=== PATIENT | male | born 1975 | race Caucasian/White ===

== ENCOUNTER 2023-03-16 13:55 | Outpatient (OUT) | payer MEDICARE, MEDICAID, SELFPAY ==
[2023-03-16 14:29] LABS: Basophils Percent Auto 0.7 % (0.2-2.0); Eosinophils Absolute Auto 0.2 10^3/uL (0.0-0.7); Eosinophils Percent Auto 4.7 % (0.9-7.0); Hematocrit 43.9 % (42.0-54.0); Hemoglobin 15.1 g/dL (14.0-18.0); Immature Granulocytes Abs Auto 0.02 10^3/uL (0.00-0.03); Immature Granulocytes Pct Auto 0.5 % (0.0-0.5); Lymphocytes Absolute Auto 1.8 10^3/uL (1.2-3.8); Lymphocytes Percent Auto 42.7 % (20.5-60.0); Mean Corpuscular HGB Conc 34.4 g/dL (29.9-35.2); Mean Platelet Volume 8.5 fL (9.5-13.5); Monocytes Absolute Auto 0.5 10^3/uL (0.3-0.8); Monocytes Percent Auto 12.7 % (1.7-12.0); Neutrophils Absolute Auto 1.6 10^3/uL (1.4-6.5); Neutrophils Percent Auto 38.7 % (43.0-75.0); Platelet Count 253 10^3/uL (150-450); Red Blood Count 4.72 10^6/uL (4.70-6.10); Red Cell Distribution Width 11.5 % (11.0-15.0); White Blood Count 4.2 10^3/uL (4.0-11.0)
[2023-03-16 15:04] LABS: Alanine Aminotransferase 37 U/L (16-63); Albumin Globulin Ratio 1.1; Albumin Level 4.1 g/dL (3.4-5.0); Alkaline Phosphatase 42 U/L (46-116); Anion Gap 11.4; Aspartate Amino Transferase 26 U/L (15-37); Bilirubin Direct 0.1 mg/dL (0.0-0.2); Bilirubin Total 0.4 mg/dL (0.2-1.0); Calcium 9.2 mg/dL (8.5-10.1); Carbon Dioxide 28.3 mmol/L (21.0-32.0); Chloride 97 mmol/L (98-107); Estimated GFR (African America >60 (>=60); Estimated GFR (Non-African Ame >60 (>=60); Globulin 3.9 g/dL; Glucose 103 mg/dL (74-106); Potassium 4.7 mmol/L (3.5-5.1); Sodium 132 mmol/L (136-145)
== END 2023-03-16 13:56 ==
PROVIDERS: PCP Family Medicine; Visit Provider Psychiatry & Neurology Neurology
DX: G40.909 Epilepsy, unspecified, not intractable, without status epilepticus (principal)
CPT/HCPCS: 36415; 80048; 80076; 85025

== ENCOUNTER 2023-04-09 14:58 | Outpatient (OUT) | payer MEDICARE, MEDICAID, SELFPAY ==
--- NOTE | 2023-04-09 15:16 | US_ITS ---
[address] [address] Patient Name: KJ NICOLAS MRN: [id number] date: 1975 Sex: M Assigned Patient Location: [facility] Current Patient Location: Accession/Order Number: [id number] Exam Date: 04/09/2023 15:16 Report Date: 04/10/2023 07:14 At the request of: JORDAN WYLIE Procedure: US appendix EXAM: US appendix HISTORY: Abdominal pain R10.9 COMPARISON: None. TECHNIQUE: Grayscale and color ultrasound FINDINGS: The appendix was not visualized Normal skin, subcutaneous fat, muscle and loops of bowel. No ascites. IMPRESSION: Indeterminate exam, the appendix was not visualized Electronically authenticated by: KIM GARY Date: 04/10/2023 07:14
== END 2023-04-09 14:59 | disposition home or self-care (01) ==
LOC: RAD 15:04
PROVIDERS: PCP Family Medicine; Visit Provider Family Medicine
DX: R10.9 Unspecified abdominal pain (principal)
CPT/HCPCS: 76705

== ENCOUNTER 2023-04-15 12:54 | Outpatient (OUT) | payer MEDICARE, MEDICAID, SELFPAY ==
--- NOTE | 2023-04-15 13:03 | CT_ITS ---
[address] [address] Patient Name: KJ NICOLAS MRN: [id number] date: 1975 Sex: M Assigned Patient Location: CT Current Patient Location: CT Accession/Order Number: [id number] Exam Date: 04/15/2023 14:15 Report Date: 04/15/2023 16:17 At the request of: JORDAN WYLIE Procedure: CT abdomen pelvis w con CT ABDOMEN AND PELVIS WITH CONTRAST: INDICATION: Left Lower Quadrant Pain R10.32. COMPARISON: None. TECHNIQUE: Helical CT images of the abdomen and pelvis were obtained after the administration of intravenous contrast. Dose reduction techniques were achieved by using automated exposure control and/or adjustment of mA and/or kV according to patient size and/or use of iterative reconstruction technique. FINDINGS: LOWER CHEST: Mosaic groundglass attenuation of the visualized lungs which is nonspecific and can be seen in small airways or small vessel disease. Mild circumferential wall thickening of the distal esophagus. LIVER: Mild diffuse fatty infiltration of the liver. GALLBLADDER AND BILIARY SYSTEM: The gallbladder is partially contracted. There is no intra or extrahepatic biliary ductal dilatation. SPLEEN: Unremarkable. PANCREAS: Unremarkable. ADRENAL GLANDS: Unremarkable. KIDNEYS AND URETERS: The kidneys enhance symmetrically. There is no hydronephrosis. No focal renal lesions. BLADDER: Unremarkable. GASTROINTESTINAL TRACT: No evidence of bowel obstruction or colitis. Normal appendix. Moderate amount of stool in the colon. VASCULATURE: Unremarkable. RETROPERITONEUM AND LYMPH NODES: No lymphadenopathy or mass. PERITONEUM/MESENTERY: No abdominal ascites. No free air. PELVIS: No pelvic ascites or lymphadenopathy. BODY WALL: Tiny fat-containing umbilical hernia. BONES: No acute abnormality. CT/CT abdomen pelvis w con IMPRESSION: 1. No acute process in the abdomen or pelvis. 2. Mild circumferential wall thickening of the distal esophagus. 3. Fatty liver. 4. Constipation. Electronically authenticated by: AMY PUENTE Date: 04/15/2023 16:17
== END 2023-04-15 12:55 | disposition home or self-care (01) ==
LOC: CT 12:54
PROVIDERS: PCP Family Medicine; Visit Provider Family Medicine
DX: R10.32 Left lower quadrant pain (principal); K59.00 Constipation, unspecified
CPT/HCPCS: 74177; Q9966; Q9967

== ENCOUNTER 2023-05-26 13:11 | Outpatient (OUT) | payer MEDICARE, MEDICAID, SELFPAY ==
--- NOTE | 2023-05-26 | XR_ITS ---
The [address] [address] Patient Name: KJ NICOLAS MRN: [id number] date: 1975 Sex: M Assigned Patient Location: RAD Current Patient Location: RAD Accession/Order Number: [id number] Exam Date: 05/26/2023 13:40 Report Date: 05/26/2023 15:41 At the request of: ANABELA FRANCE Procedure: XR foot RT min 3V PROCEDURE: XR foot RT min 3V HISTORY: IMAGING IN PODIATRY lateral right foot pain, no known injury COMPARISON: XR foot right 12/17/2022 2 FINDINGS: BONES:No fracture, acute abnormality, or significant arthropathy. SOFT TISSUES:No visible soft tissue swelling. EFFUSION:None visible. OTHER: Negative. XR/XR foot RT min 3V IMPRESSION: 1. No acute bone abnormality or appreciable degenerative changes to account for patient's symptoms. Electronically authenticated by: DANGELO WILLIAM Date: 05/26/2023 15:41
== END 2023-05-26 13:12 | disposition home or self-care (01) ==
LOC: RAD 13:11
PROVIDERS: PCP Family Medicine; Visit Provider Physician Assistant
DX: M79.671 Pain in right foot (principal)
CPT/HCPCS: 73630

== ENCOUNTER 2023-07-08 15:20 | Outpatient (OUT) | payer MEDICARE, MEDICAID, SELFPAY ==
--- NOTE | 2023-07-08 | XR_ITS ---
The [address] [address] Patient Name: KJ NICOLAS MRN: [id number] date: 1975 Sex: M Assigned Patient Location: RAD Current Patient Location: RAD Accession/Order Number: [id number] Exam Date: 07/08/2023 13:45 Report Date: 07/08/2023 14:48 At the request of: ANABELA FRANCE Procedure: XR ankle RT min 3V STUDY: XR ankle RT min 3V, [id number] HISTORY: RIGHT ANKLE PAIN COMPARISON: None FINDINGS: No acute fracture, dislocation, or suspicious osseous lesion. No significant degenerative changes. No lucent lesion of the talar dome. Mild Achilles insertional enthesopathy. XR/XR ankle RT min 3V IMPRESSION: No acute osseous abnormality. Electronically authenticated by: RITO JHA Date: 07/08/2023 14:48
== END 2023-07-08 15:21 | disposition home or self-care (01) ==
LOC: RAD 15:20
PROVIDERS: PCP Family Medicine; Visit Provider Podiatrist Foot & Ankle Surgery
DX: M25.572 Pain in left ankle and joints of left foot (principal)
CPT/HCPCS: 73610

== ENCOUNTER 2023-07-14 12:18 | Outpatient (OUT) | payer MEDICARE, MEDICAID, SELFPAY ==
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
== END 2023-07-14 12:19 | disposition home or self-care (01) ==
PROVIDERS: PCP Family Medicine; Visit Provider Podiatrist Foot & Ankle Surgery
DX: M79.5 Residual foreign body in soft tissue (principal); M25.371 Other instability, right ankle
CPT/HCPCS: 72170

== ENCOUNTER 2023-07-27 12:54 | Outpatient (RCR) | payer MEDICARE, MEDICAID, SELFPAY | END 2023-08-04 16:26 | disposition home or self-care (01) | LOC: PT 12:54 | PROVIDERS: PCP Family Medicine; Visit Provider Podiatrist Foot & Ankle Surgery | DX: M25.572 Pain in left ankle and joints of left foot (principal); M25.371 Other instability, right ankle; R26.9 Unspecified abnormalities of gait and mobility; R26.89 Other abnormalities of gait and mobility | CPT/HCPCS: 97110; 97161; 97530 ==

== ENCOUNTER 2023-08-26 14:29 | Outpatient (REF) | payer MEDICARE, MEDICAID, SELFPAY ==
[2023-08-26 14:41] LABS: Bilirubin Urine NEGATIVE (NEGATIVE); Blood Urine NEGATIVE (NEGATIVE); Clarity Urine CLEAR (CLEAR); Color Urine YELLOW (YELLOW); Glucose Urine UA NEGATIVE (NEGATIVE); Ketones Urine NEGATIVE (NEGATIVE); Leukocyte Esterase Urine NEGATIVE (NEGATIVE); Nitrite Urine NEGATIVE (NEGATIVE); Protein Urine NEGATIVE (NEG/TRACE); pH Urine 7.5 (5.0-9.0)
[2023-08-26 14:48] LABS: Bacteria Urine TRACE #/HPF (NONE SEEN); Crystals Seen? Seen #/HPF (None Seen); Mucus Urine NONE SEEN (NONE SEEN); RBC Urine 0-2 #/HPF (0-2); Squamous Epithelial Cell Urine NONE SEEN #/LPF (NONE/RARE); WBC Urine NONE SEEN #/HPF (NONE SEEN)
[2023-08-26 14:49] LABS: Amorphous Sediment Urine FEW; Cast Seen? NONE SEEN #/LPF (NONE SEEN)
== END 2023-08-26 14:30 | disposition home or self-care (01) ==
LOC: LAB 14:29
PROVIDERS: PCP Family Medicine; Visit Provider Family Medicine
DX: J30.2 Other seasonal allergic rhinitis (principal)
CPT/HCPCS: 81001; 87086

== ENCOUNTER 2023-08-26 14:55 | Outpatient (OUT) | payer MEDICARE, MEDICAID, SELFPAY ==
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
== END 2023-08-26 14:56 | disposition home or self-care (01) ==
LOC: RAD 14:56
PROVIDERS: PCP Family Medicine; Visit Provider Family Medicine
DX: J30.2 Other seasonal allergic rhinitis (principal); M25.551 Pain in right hip; M16.0 Bilateral primary osteoarthritis of hip
CPT/HCPCS: 73502

== ENCOUNTER 2024-01-29 09:57 | Outpatient (OUT) | payer MEDICARE, MEDICAID, SELFPAY ==
--- NOTE | 2024-01-29 09:59 | XR_ITS ---
The [address] [address] Patient Name: KJ NICOLAS MRN: [id number] date: 1975 Sex: M Assigned Patient Location: [facility] Current Patient Location: Accession/Order Number: [id number] Exam Date: 01/29/2024 10:05 Report Date: 02/01/2024 06:52 At the request of: JORDAN WYLIE Procedure: XR sinus min 3V EXAMINATION: XR sinus min 3V HISTORY: Acute Recurrent Pansinusitis J01.41 COMPARISON: No relevant comparison available. FINDINGS: MAXILLARY: Suspect mucosal thickening. No appreciable fluid level. ETHMOID: No mucosal thickening or fluid level. FRONTAL: Suspect complete opacification of left lateral frontal sinus. SPHENOID: Suspect mucosal thickening. OTHER: Negative. XR/XR sinus min 3V IMPRESSION: 1. Findings suggestive of chronic sinusitis. No appreciable fluid levels to suggest acute sinusitis. Electronically authenticated by: DANGELO WILLIAM Date: 02/01/2024 06:52
== END 2024-01-29 09:58 | disposition home or self-care (01) ==
LOC: RAD 09:57
PROVIDERS: PCP Family Medicine; Visit Provider Family Medicine
DX: J01.41 Acute recurrent pansinusitis (principal)
CPT/HCPCS: 70220

== ENCOUNTER 2024-07-28 12:44 | Outpatient (OUT) | payer MEDICARE, MEDICAID, SELFPAY ==
--- NOTE | 2024-07-28 12:48 | CT_ITS ---
The [address] [address] Patient Name: KJ NICOLAS MRN: [id number] date: 1975 Sex: M Assigned Patient Location: CT Current Patient Location: CT Accession/Order Number: [id number] Exam Date: 07/28/2024 12:54 Report Date: 07/28/2024 18:44 At the request of: JORDAN WYLIE Procedure: CT head/brain wo con EXAM: CT head/brain wo con HISTORY: migraine G43.909 COMPARISON: None. TECHNIQUE: Axial CT scans through the head were obtained without IV contrast administration. Dose reduction techniques were achieved by using: automated exposure control and/or adjustment of mA and /or kV according to patient size and/or use of iterative reconstruction technique. FINDINGS: There is no acute intracranial hemorrhage or abnormal extra-axial fluid collection. No mass effect or midline shift is seen. There is no evidence of large acute territorial infarction. There is no hydrocephalus. To the limit of CT, the posterior fossa appears unremarkable. The calvaria and extra cranial soft tissues are unremarkable. The visualized orbits show no abnormality. The visualized paranasal sinuses show no air-fluid level. There are minimal mastoid effusion bilaterally. There are cerumen within bilateral external auditory canals. CT/CT head/brain wo con IMPRESSION: No acute intracranial process. Bilateral mild mastoid effusion. Electronically authenticated by: DANA SEGAL Date: 07/28/2024 18:44
--- OUTSIDE RECORDS SUMMARY | 2024-07-28 12:54 | XMS_ITS | CCD ---
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 Role Phone INESSA ., DR ORTEGA Consulting Unavailable HOY ., DR ORTEGA Primary Care Unavailable HOY ., DR ORTEGA Admitting Unavailable HOY ., DR ORTEGA Attending Unavailable HOY ., DR ORTEGA Consulting Unavailable HOY ., DR ORTEGA Primary Care Unavailable HOY ., DR ORTEGA Admitting Unavailable HOY ., DR ORTEGA Attending Unavailable NATALIIA, DR DANGELO Thao Consulting Unavailable HOY ., DR ORTEGA Primary Care Unavailable HOY ., DR ORTEGA Admitting Unavailable HOY ., DR ORTEGA Attending Unavailable Jordan Wylie Primary Care Physician [phone] Hoy, Jordan Admitting Unavailable Hoy, Jordan Attending Unavailable Hoy, Jordan Referring Unavailable Hoy, Jordan Admitting Unavailable Hoy, Jordan Referring Unavailable Hoy, Jordan Attending Unavailable Timmis, Irina H Referring Unavailable Timmis, Irina H Attending Unavailable Timmis, Irina H Admitting Unavailable TIMMIS, IRINA H Attending Unavailable HOY, JORDAN M Referring Unavailable TIMMIS, IRINA H Attending Unavailable MARIANA GILMAN Attending Unavailable Problems Active Problems Problem Classification Problem Date Documented Da te Episodic/Chronic Diabetes mellitus without complication (1 source) Type 2 diabetes mellitus without complications; Translations: [TYPE 2 DM WITHOUT COMPLICATIONS] Onset: 02-27-2022 Chronic Disorders of lipid metabolism (1 source) Hyperlipidemia, unspecified; Translations: [HYPERLIPIDEMIA UNSPECIFIED] Onset: 02-27-2022 Chronic Other connective tissue disease (4 sources) Pain in right hand; Translations: [PAIN IN RIGHT HAND] Onset: 12-17-2022 Episodic Past or Other Problems Problem Classification Problem Date Documented Da te Episodic/Chronic Deficiency and other anemia (1 source) Anemia, unspecified; Translations: [ANEMIA UNSPECIFIED] Onset: 02-27-2022 Episodic Other aftercare (1 source) Other alf (current) drug therapy; Translations: [OTH MANAGER SIMULATION CURRENT DRUG THERAPY] Onset: 02-27-2022 Episodic Other non-traumatic joint disorders (1 source) Pain in unspecified joint; Translations: [PAIN IN UNSPECIFIED JOINT] Onset: 02-27-2022 Episodic Other screening for suspected conditions (not mental disorders or infectious disease) (1 source) Encounter for screening for malignant neoplasm of prostate; Translations: [ENC SCREEN MALIG NEOPLASM PROSTATE] Onset: 02-27-2022 Episodic Results Test Name Value Interpretation Reference Range Facility US Head/Neck Soft Tissueon 0 04-02-2024 US Head/Neck Soft Tissue Exam Date/Time: 03/30/2024 15:02 EDT Reason for Exam: R59.1 Report IMPRESSION: NORMAL-SIZED LYMPH NODES, BILATERAL NECK. IF CLINICAL CONCERN WARRANTS, CT SOFT TISSUE NECK MAY BE OBTAINED FOR FURTHER EVALUATION. CLINICAL HISTORY: R59.1 lymphadenopathy. Difficulty swallowing. COMPARISON: NONE. FINDINGS: Directed sonographic interrogation was performed over the regions of clinical concern. In the right neck, multiple lymph nodes are identified, the largest measuring 1.4 x 0.4 cm. In the left neck, multiple lymph nodes are identified, the largest measuring 2.1 x 0.4 cm. Color flow without anomaly bilaterally. No cystic and no solid lesions identified. Ordering Provider: Jordan Wylie FINAL REPORT Dictated: 04/02/2024 10:00 am Shekhar Elmore MD Signed (Electronic Signature): 04/02/2024 10:00 am Signed by: Shekhar Elmore MD Transcribed by: RIGO Technologist: HW Normal [facility] EBV Antibody Profileon 04-01 EBV capsid IgG IA Qn (S) >600.0 High 0.0-17.9 [facility] Comment on above: Result Comment: Nega tive <18.0 Equivocal 18.0 - 21.9 Positive >21.9 Performed By: #### 1 [id number] #### [facility] [address] [place] [address] EBV capsid IgM IA Qn (S) <36.0 Invalid Interpretation Code 0.0-35.9 [facility] Comment on above: Result Comment: Nega tive <36.0 Equivocal 36.0 - 43.9 Positive >43.9 Performed By: #### 1 [id number] #### [facility] [address] [place] [address] EBV nuclear IgG IA Qn (S) 298.0 unit/mL High 0.0-17.9 [facility] Comment on above: Result Comment: Nega tive <18.0 Equivocal 18.0 - 21.9 Positive >21.9 Performed By: #### 1 [id number] #### [facility] [address] [place] [address] Service comment (Unsp spec) [Interp] Comment Invalid Interpretation Code [facility] Comment on above: Result Comment: EBV Interpretation Chart Celis: Antibody Present + Antibody Absent - Interpretation VCA-IgM VCA-IgG EBNA-IgG No previous infection/ - - - Susceptible Primary infection (new + + - or recent) Past Infection +or- + + See comment below* + - - *Results indicate infection with EBV at some time however cannot predict the timing of the infection since antibodies to EBNA usually develop after primary infection or, alternatively, approximately 5-10% of patients with EBV never develop antibodies to EBNA. Performed at: [facility] [id number] PhD Jo Ann Olvera Performed By: #### 1 [id number] #### [facility] [address] [place] [address] CT Maxillofacial w/o Contras ton 03-31-2024 CT Maxillofacial w/o Contrast Exam Date/Time: 03/30/2024 14:30 EDT Reason for Exam: J32.4 Report IMPRESSION: NO RADIOGRAPHIC FINDINGS TO SUGGEST ACUTE OR CHRONIC SINUSITIS CLINICAL HISTORY: J32.4 facial pressure COMPARISON: NONE. FINDINGS: Within the [id number] the ventricles are of normal size configuration. No mass. No midline shift. The cisterns are patent. No acute intra or extra 5. Both globes are intact. No gross preseptal or postseptal findings. The frontal sinuses, anterior posterior ethmoids, sphenoid and maxillary sinuses are well aerated. No significant mucosal thickening no retention cyst and/or polyps. The mastoids are well aerated. The ostiomeatal units are patent. No significant sclerotic changes are hyperostosis seen within the visualized paranasal sinuses. Mild Deviation nasal septum to the right with small nasal spur All CT scans at this facility use dose modulation, iterative reconstruction, and/or weight based dosing when appropriate to reduce radiation dose to as low as reasonably achievable. Ordering Provider: Irina Vega FINAL REPORT Dictated: 03/31/2024 9:44 am Manoj Brown Signed (Electronic Signature): 03/31/2024 9:44 am Signed by: Manoj Brown Transcribed by: RIGO Technologist: ANGIE [facility] CBC w/ Auto Diffon 4 Basophils/100 WBC (Bld) 0.7 % Normal 0.0-2.0 [facility] Comment on above: Performed By: #### 2 [id number] #### [facility] [address] [place] [address] Basophils/Leukocytes Auto (Bld) [Pure # fraction] 0.0 E9/L Normal 0.0-0.2 [facility] Comment on above: Performed By: #### 2 [id number] #### [facility] [address] [place] [address] Eosinophils (Bld) [#/Vol] 0.2 E9/L Normal 0.0-0.5 [facility] Comment on above: Performed By: #### 2 [id number] #### [facility] [address] [place] [address] Eosinophils/100 WBC (Bld) 3.9 % Normal 0.0-8.0 [facility] Comment on above: Performed By: #### 2 [id number] #### [facility] [address] [place] [address] Erythrocyte distribution width (RBC) [Ratio] 12.6 % Normal 10.9-14.2 [facility] Comment on above: Performed By: #### 2 [id number] #### [facility] [address] [place] [address] Hematocrit (Bld) [Volume fraction] 41.3 % Normal 37.7-49.0 [facility] Comment on above: Performed By: #### 2 [id number] #### [facility] [address] [place] [address] Hemoglobin (Bld) [Mass/Vol] 14.6 g/dL Normal 13.5-17.5 [facility] Comment on above: Performed By: #### 2 [id number] #### [facility] [address] [place] [address] Lymphocytes (Bld) [#/Vol] 1.4 E9/L Normal 1.0-4.0 [facility] Comment on above: Performed By: #### 2 [id number] #### [facility] [address] [place] [address] Lymphocytes/100 WBC (Bld) 34.8 % Normal 14.0-50.0 [facility] Comment on above: Performed By: #### 2 [id number] #### [facility] [address] [place] [address] MCH (RBC) [Entitic mass] 32.6 pg Normal 27.0-34.0 [facility] Comment on above: Performed By: #### 2 [id number] #### [facility] [address] [place] [address] MCHC (RBC) [Mass/Vol] 35.4 g/dL Normal 31.4-36.0 [facility] Comment on above: Performed By: #### 2 [id number] #### [facility] [address] [place] [address] MCV (RBC) [Entitic vol] 92.1 fL Normal 80.0-100.0 [facility] Comment on above: Performed By: #### 2 [id number] #### [facility] [address] [place] [address] Monocytes (Bld) [#/Vol] 0.6 E9/L Normal 0.2-1.0 [facility] Comment on above: Performed By: #### 2 [id number] #### [facility] [address] [place] [address] Neutrophils (Bld) [#/Vol] 1.8 E9/L Low 2.0-7.5 [facility] Comment on above: Performed By: #### 2 [id number] #### [facility] [address] [place] [address] Neutrophils/100 WBC (Bld) 44.8 % Normal 36.0-75.0 [facility] Comment on above: Performed By: #### 2 [id number] #### [facility] [address] [place] [address] Platelet 318.0 E9/L Normal 150.0-500.0 [facility] Comment on above: Performed By: #### 2 [id number] #### [facility] [address] [place] [address] Platelet mean volume (Bld) [Entitic vol] 6.3 fL Low 6.4-10.8 [facility] Comment on above: Performed By: #### 2 [id number] #### [facility] [address] [place] [address] RBC (Bld) [#/Vol] 4.5 E12/L Normal 4.3-5.9 [facility] Comment on above: Performed By: #### 2 [id number] #### [facility] [address] [place] [address] WBC corrected for nucl RBC Auto (Bld) [#/Vol] 4.1 E9/L Normal 4.0-11.0 [facility] Comment on above: Performed By: #### 2 [id number] #### [facility] [address] [place] [address] CHEMISTRYOrdered By: SYSTEM SYSTEM on 03-30-2024 Albumin [Mass/Vol] 4.5 g/dL Normal 3.3 - 5.0 gm/dL [facility] Albumin/Globulin [Mass ratio] 1.4 {ratio} Normal 1.1 - 2.2 [facility] ALP [Catalytic activity/Vol] 44 [iU]/d Normal 21 - 98 Int._Unit/L [facility] ALT No additional P-5'-P [Catalytic activity/Vol] 38 [iU]/d Normal 6 - 46 Int._Unit/L [facility] Anion gap [Moles/Vol] 10 mmol/L Normal 6 - 16 mEq/L R [facility] Chem AST [Catalytic activity/Vol] 32 [iU]/d Normal 5 - 43 Int._Unit/L [facility] Bilirubin [Mass/Vol] 0.6 mg/dL Normal 0.0 - 1 .1 mg/dL [facility] Calcium [Mass/Vol] 9.4 mg/dL Normal 8.9 - 11. 1 mg/dL [facility] Chloride [Moles/Vol] 101 mmol/L Normal 101 - 1 11 mmol/L [facility] CO2 [Moles/Vol] 30 mmol/L Normal 21 - 31 mmol/L [facility] Creatinine [Mass/Vol] 1.2 mg/dL Normal 0.5 - 1.3 mg/dL [facility] eGFR 75 mL/min/1.73 m2 Normal >=59mL/min /1. 73 m2 [facility] Globulin (S) [Mass/Vol] 3.2 g/dL Normal 1.4 - 4.0 gm/dL [facility] Glucose [Mass/Vol] 93 mg/dL Normal 55 - 199 mg/dL [facility] Potassium [Moles/Vol] 4.3 mmol/L Normal 3.5 - 5.3 mmol/L [facility] Protein [Mass/Vol] 7.7 g/dL Normal 6.0 - 7.8 gm/dL [facility] Sodium [Moles/Vol] 137 mmol/L Normal 135 - 145 mmol/L [facility] Urea nitrogen [Mass/Vol] 17 mg/dL Normal 5 - 21 mg/dL [facility] Urea nitrogen/Creatinine [Mass ratio] 14 mg/mg Normal 10 - 20 [facility] CMPon 03-30-2024 Albumin [Mass/Vol] 4.5 g/dL Normal 3.3-5.0 [facility] Comment on above: Performed By: #### 2 [id number] #### [facility] [address] [place] [address] Albumin/Globulin (S) [Mass conc ratio] 1.4 Normal 1.1-2.2 [facility] Comment on above: Performed By: #### 2 [id number] #### [facility] [address] [place] [address] ALP [Catalytic activity/Vol] 44 Int._Unit/L Normal 21-98 [facility] Comment on above: Performed By: #### 2 [id number] #### [facility] [address] [place] [address] ALT No additional P-5'-P [Catalytic activity/Vol] 38 Int._Unit/L Normal 6-46 [facility] Comment on above: Performed By: #### 2 [id number] #### [facility] [address] [place] [address] Anion gap [Moles/Vol] 10 mmol/L Normal 6-16 [facility] Comment on above: Performed By: #### 2 [id number] #### [facility] [address] [place] [address] AST [Catalytic activity/Vol] 32 Int._Unit/L Normal 5-43 [facility] Comment on above: Performed By: #### 2 [id number] #### [facility] [address] [place] [address] Bilirubin [Mass/Vol] 0.6 mg/dL Normal 0.0-1.1 [facility] Comment on above: Performed By: #### 2 [id number] #### [facility] [address] [place] [address] Calcium [Mass/Vol] 9.4 mg/dL Normal 8.9-11.1 [facility] Comment on above: Performed By: #### 2 [id number] #### [facility] [address] [place] [address] Chloride [Moles/Vol] 101 mmol/L Normal 101-111 [facility] Comment on above: Performed By: #### 2 114536 #### [facility] [address] [place] [address] CO2 [Moles/Vol] 30 mmol/L Normal 21-31 [facility] Comment on above: Performed By: #### 2 [id number] #### [facility] [address] [place] [address] Creatinine [Mass/Vol] 1.2 mg/dL Normal 0.5-1.3 [facility] Comment on above: Performed By: #### 2 [id number] #### [facility] [address] [place] [address] Globulin (S) [Mass/Vol] 3.2 g/dL Normal 1.4-4.0 [facility] Comment on above: Performed By: #### 2 [id number] #### [facility] [address] [place] [address] Glucose [Mass/Vol] 93 mg/dL Normal 55-199 [facility] Comment on above: Performed By: #### 2 [id number] #### [facility] [address] [place] [address] Potassium [Moles/Vol] 4.3 mmol/L Normal 3.5-5.3 [facility] Comment on above: Performed By: #### 2 148279 #### [facility] [address] [place] [address] Protein [Mass/Vol] 7.7 g/dL Normal 6.0-7.8 [facility] Comment on above: Performed By: #### 2 379238 #### [facility] [address] [place] [address] Sodium [Moles/Vol] 137 mmol/L Normal 135-145 [facility] Comment on above: Performed By: #### 2 [id number] #### [facility] [address] [place] [address] Urea nitrogen [Mass/Vol] 17 mg/dL Normal 5-21 [facility] Comment on above: Performed By: #### 2 [id number] #### [facility] [address] [place] [address] Urea nitrogen/Creatinine [Mass ratio] 14 No Units Normal 10-20 [facility] Comment on above: Performed By: #### 2 195070 #### [facility] [address] [place] [address] Consent for Treatmenton 03-06 Consent for Treatment [id number] 7F#1.00TIFF Normal [facility] Consent for Treatment [id number] DC#1.00TIFF Normal [facility] HEMATOLOGYOrdered By: SYSTEM SYSTEM on 03-30-2024 Basophils/100 WBC (Bld) 0.7 % Normal 0.0 - 2.0 % [facility] Basophils/Leukocytes Auto (Bld) [Pure # fraction] 0.0 E9/L Normal 0.0 - 0.2 E9/L [facility] Eosinophils (Bld) [#/Vol] 0.2 E9/L Normal 0.0 - 0.5 E9/L [facility] Eosinophils/100 WBC (Bld) 3.9 % Normal 0.0 - 8.0 % [facility] Erythrocyte distribution width (RBC) [Ratio] 12.6 % Normal 10.9 - 14.2 % [facility] Hematocrit (Bld) [Volume fraction] 41.3 % Normal 37.7 - 49.0 % [facility] Hemoglobin (Bld) [Mass/Vol] 14.6 g/dL Normal 13.5 - 17.5 gm/dL [facility] Lymphocytes (Bld) [#/Vol] 1.4 E9/L Normal 1.0 - 4.0 E9/L [facility] Lymphocytes/100 WBC (Bld) 34.8 % Normal 14.0 - 50.0 % [facility] MCH (RBC) [Entitic mass] 32.6 pg Normal 27.0 - 34.0 pg [facility] MCHC (RBC) [Mass/Vol] 35.4 g/dL Normal 31.4 - 36.0 gm/dL [facility] MCV (RBC) [Entitic vol] 92.1 fL Normal 80.0 - 100.0 fL [facility] Monocytes (Bld) [#/Vol] 0.6 E9/L Normal 0.2 - 1.0 E9/L [facility] Monocytes/100 WBC (Bld) 15.8 % High 4.0 - 14.0 % [facility] Neutrophils (Bld) [#/Vol] 1.8 E9/L Low 2.0 - 7.5 E9/L [facility] Neutrophils/100 WBC (Bld) 44.8 % Normal 36.0 - 75.0 % [facility] Platelet 318.0 E9/L Normal 150.0 - 500.0 E9/L [facility] Platelet mean volume (Bld) [Entitic vol] 6.3 fL Low 6.4 - 10.8 fL [facility] RBC (Bld) [#/Vol] 4.5 E12/L Normal 4.3 - 5.9 E12/L [facility] WBC corrected for nucl RBC Auto (Bld) [#/Vol] 4.1 E9/L Normal 4.0 - 11.0 E9/L [facility] [place] Screenon 03-30-2024 Heterophile Ab LA Ql (S) Negative Normal Negative [facility] Comment on above: Performed By: #### 2 [id number] #### [facility] [address] [place] [address] Physician Orderon 03-30-2024 Physician Order [id number] 74#1.00TIFF Normal [facility] Physician Order [id number] 6#1.00TIFF Normal [facility] SEROLOGYOrdered By: Guerita Gamino on 03-30-2024 Heterophile Ab LA Ql (S) Negative (03/30/24 3:07 PM) Normal Negative [facility]ero eGFRon 03-30-2024 eGFR 75 mL/min/1.73 m2 Normal >=59 [facility] Comment on above: Order Comment: Order added by Discern Expert. Performed By: #### 1 [id number] #### [facility] [address] [place] [address] Physician Orderon 03-02-2024 Physician Order [id number] DC#1.00TIFF Normal [facility] INSULINon 02-25-2022 Insulin 10.6 uIU/mL Normal 2.6-24.9 [facility] Comment on above: Performed By: #### I NSULIN #### [facility] [address] [place] [address] Dr. Gabriel Garcia CBC AUTO DIFFon 02-24-2022 BASO # 0.1 103/ul Normal 0.0-0.1 [facility] Comment on above: Performed By: #### C BC #### [facility] [address] [place] [address] Dr. Gabriel Garcia Basophils/100 WBC (Bld) 1.0 % Normal 0.2-2.0 [facility] Comment on above: Performed By: #### C BC #### [facility] [address] [place] [address] Dr. Gabriel Garcia EO # 0.3 103/ul Normal 0.0-0.7 [facility] Comment on above: Performed By: #### C BC #### [facility] [address] [place] [address] Dr. Gabriel Garcia Eosinophils/100 WBC (Bld) 5.1 % Normal 0.9-7.0 [facility] Comment on above: Performed By: #### C BC #### [facility] [address] [place] [address] Dr. Gabriel Garcia Erythrocyte distribution width (RBC) [Ratio] 11.9 % Normal 11.0-15.0 [facility] Comment on above: Performed By: #### C BC #### [facility] [address] [place] [address] Dr. Gabriel Garcia Hematocrit (Bld) [Volume fraction] 46.9 % Normal 42.0-54.0 [facility] Comment on above: Performed By: #### C BC #### [facility] [address] [place] [address] Dr. Gabriel Garcia Hemoglobin (Bld) [Mass/Vol] 16.1 g/dL Normal 14.0-18.0 [facility] Comment on above: Performed By: #### C BC #### [facility] [address] [address] [address] Gabriel Garcia IG # 0.01 10e3/ul Normal 0.00-0.03 [facility] Comment on above: Performed By: #### C BC #### [facility] [address] [place] [address] Dr. Gabriel Garcia IG % 0.2 % Normal 0.0-0.5 [facility] Comment on above: Performed By: #### C BC #### [facility] [address] [place] [address] Dr. Gabriel Garcia LYMPH # 1.9 103/ul Normal 1.2-3.8 [facility] Comment on above: Performed By: #### C BC #### [facility] [address] [place] [address] Dr. Gabriel Garcia Lymphocytes/100 WBC (Bld) 37.4 % Normal 20.5-60.0 [facility] Comment on above: Performed By: #### C BC #### [facility] [address] [place] [address] Dr. Gabriel Garcia MANUAL DIFF REQ NO Normal [facility] Comment on above: Performed By: #### C BC #### [facility] [address] [place] [address] Dr. Gabriel Garcia MCH (RBC) [Entitic mass] 31.8 pg Normal 25.9-34.0 [facility] Comment on above: Performed By: #### C BC #### [facility] [address] [place] [address] Dr. Gabriel Garcia MCHC (RBC) [Mass/Vol] 34.3 g/dL Normal 29.9-35.2 [facility] Comment on above: Performed By: #### C BC #### [facility] [address] [place] [address] Dr. Gabriel Garcia MCV (RBC) [Entitic vol] 92.5 fL Normal 80.0-94.0 [facility] Comment on above: Performed By: #### C BC #### [facility] [address] [place] [address] Dr. Gabriel Garcia MONO # 0.5 103/ul Normal 0.3-0.8 [facility] Comment on above: Performed By: #### C BC #### [facility] [address] [place] [address] Dr. Gabriel Garcia Monocytes/100 WBC (Bld) 9.0 % Normal 1.7-12.0 [facility] Comment on above: Performed By: #### C BC #### [facility] [address] [place] [address] Dr. Gabriel Garcia NEUT # 2.4 103/ul Normal 1.4-6.5 [facility] Comment on above: Performed By: #### C BC #### [facility] [address] [place] [address] Dr. Gabriel Garcia Neutrophils/100 WBC (Bld) 47.3 % Normal 43.0-75.0 [facility] Comment on above: Performed By: #### C BC #### [facility] [address] [place] [address] Dr. Gabriel Garcia Platelet mean volume (Bld) [Entitic vol] 8.8 fL Critically low 9.5-13.5 [facility] Comment on above: Performed By: #### C BC #### [facility] [address] [place] [address] Dr. Gabriel Garcia PLT 226 103/ul Normal 150-450 [facility] Comment on above: Performed By: #### C BC #### [facility] [address] [place] [address] Dr. Gabriel Garcia RBC 5.07 106/ul Normal 4.70-6.10 [facility] Comment on above: Performed By: #### C BC #### [facility] [address] [place] [address] Dr. Gabriel Garcia WBC 5.1 103/ul Normal 4.0-11.0 [facility] Comment on above: Performed By: #### C BC #### [facility] [address] [place] [address] Dr. Gabriel Garcia DIRECT LDLon 05-23-2022 Cholesterol in LDL [Mass/Vol] 144 mg/dL Normal [facility] Comment on above: Performed By: #### C MP, DLDL, URIC, LIPID #### [facility] [address] [address] [address] Gabriel Garcia DLDL NORMAL SEE BELOW Normal [facility] Comment on above: Result Comment: <100 mg/dl OPTIMAL 100 - 129 mg/dl NEAR OR ABOVE OPTIMAL 130 - 159 mg/dl BORDERLINE HIGH 160 - 189 mg/dl HIGH >190 mg/dl VERY HIGH Performed By: #### C MP, DLDL, URIC, LIPID #### [facility] [address] [address] [address] Gabriel Garcia GLYCOHEMOGLOBIN A1Con 2021 ADA RECOMMENDATION SEE BELOW Normal [facility] Comment on above: Result Comment: ADA RECOMMENDED LIMIT 4.0 - 6.0 ADA THERAPEUTIC TARGET < 7.0 ACTION SUGGESTED > 7.0 Performed By: #### A 1C #### [facility] [address] [address] [address] Gabriel Garcia Glucose [Mass/Vol] 100 mg/dL Normal [facility] Comment on above: Performed By: #### A 1C #### [facility] [address] [address] [address] Gabriel Garcia HbA1c (Bld) [Mass fraction] 5.1 % Normal 4.5-6.2 [facility] Comment on above: Performed By: #### A 1C #### [facility] Laboratory [address] [address] [address] Gabriel Garcia LIPID PROFILEon 02-24-2022 CHOL-HDL RATIO NORM SEE BELOW Normal [facility] Comment on above: Result Comment: 3.3 - 4.4 LOW RISK 4.4 - 7.1 AVERAGE RISK 7.1 - 11.0 MODERATE RISK >11.0 HIGH RISK Performed By: #### C MP, DLDL, URIC, LIPID #### [facility] [address] [address] [address] Gabriel Garcia Cholesterol [Mass/Vol] 259 mg/dL Critically high <=200 [facility] Comment on above: Performed By: #### C MP, DLDL, URIC, LIPID #### [facility] [address] [address] [address] Gabriel Garcia Cholesterol in HDL [Mass/Vol] 27 mg/dL Critically low 40-60 [facility] Comment on above: Performed By: #### C MP, DLDL, URIC, LIPID #### [facility] [address] [address] [address] Gabriel Garcia Cholesterol.total/Chol esterol in HDL [Mass ratio] 9.6 {ratio} Normal [facility] Comment on above: Performed By: #### C MP, DLDL, URIC, LIPID #### [facility] [address] [address] [address] Gabriel Garcia HDL NORMAL > or = 60 mg/dl - LOW CARDIOVASCULAR RISK <40 mg/dl - HIGH CARDIOVASCULAR RISK Normal [facility] Comment on above: Performed By: #### C MP, DLDL, URIC, LIPID #### [facility] [address] [address] [address] Gabriel Garcia LDL CALC NORMAL SEE BELOW Normal [facility] Comment on above: Result Comment: <100 mg/dl OPTIMAL 100 - 129 mg/dl NEAR OR ABOVE OPTIMAL 130 - 159 mg/dl BORDERLINE HIGH 160 - 189 mg/dl HIGH >190 mg/dl VERY HIGH Performed By: #### C MP, DLDL, URIC, LIPID #### [facility] [address] [address] [address] Gabriel Garcia Triglyceride [Mass/Vol] 469 mg/dL Critically high <=150 [facility] Comment on above: Performed By: #### C MP, DLDL, URIC, LIPID #### [facility] [address] [address] [address] Gabriel Garcia PROF 14(COMP METB)on 022 Albumin [Mass/Vol] 4.1 g/dL Normal 3.4-5.0 [facility] Comment on above: Performed By: #### C MP, DLDL, URIC, LIPID #### [facility] [address] [address] [address] Gabriel Garcia Albumin/Globulin [Mass ratio] 1.0 {ratio} Normal [facility] Comment on above: Performed By: #### C MP, DLDL, URIC, LIPID #### [facility] [address] [place] [address] Dr. Gabriel Garcia ALP [Catalytic activity/Vol] 74 U/L Normal 46-116 [facility] Comment on above: Performed By: #### C MP, DLDL, URIC, LIPID #### [facility] [address] [place] [address] Dr. Gabriel Garcia ALT [Catalytic activity/Vol] 37 U/L Normal 16-63 [facility] Comment on above: Performed By: #### C MP, DLDL, URIC, LIPID #### [facility] [address] [place] [address] Dr. Gabriel Garcia Anion gap [Moles/Vol] 12.8 mmol/L Normal [facility] Comment on above: Performed By: #### C MP, DLDL, URIC, LIPID #### [facility] [address] [place] [address] Dr. Gabriel Garcia AST [Catalytic activity/Vol] 36 U/L Normal 15-37 [facility] Comment on above: Performed By: #### C MP, DLDL, URIC, LIPID #### [facility] [address] [place] [address] Dr. Gabriel Garcia Bilirubin [Mass/Vol] 0.4 mg/dL Normal 0.2-1.0 [facility] Comment on above: Performed By: #### C MP, DLDL, URIC, LIPID #### [facility] [address] [place] [address] Dr. Gabriel Garcia Calcium [Mass/Vol] 9.0 mg/dL Normal 8.5-10.1 [facility] Comment on above: Performed By: #### C MP, DLDL, URIC, LIPID #### [facility] [address] [place] [address] Dr. Gabriel Garcia Chloride [Moles/Vol] 103 mmol/L Normal 98-107 [facility] Comment on above: Performed By: #### C MP, DLDL, URIC, LIPID #### [facility] [address] [address] [address] Gabriel Garcia CO2 [Moles/Vol] 27.6 mmol/L Normal 21.0-32.0 [facility] Comment on above: Performed By: #### C MP, DLDL, URIC, LIPID #### [facility] [address] [place] [address] Dr. Gabriel Garcia Creatinine [Mass/Vol] 1.01 mg/dL Normal 0.70-1.30 [facility] Comment on above: Performed By: #### C MP, DLDL, URIC, LIPID #### [facility] [address] [place] [address] Dr. Gabriel Garcia EGFR-AF [place]IZ[place] >60 Normal >=60 [facility] Comment on above: Performed By: #### C MP, DLDL, URIC, LIPID #### [facility] [address] [place] [address] Dr. Gabriel Garcia EGFR-NON AF [place] >60 Normal >=60 [facility] Comment on above: Performed By: #### C MP, DLDL, URIC, LIPID #### [facility] [address] [place] [address] Dr. Gabriel Garcia Globulin (S) [Mass/Vol] 4.0 g/dL Normal [facility] Comment on above: Performed By: #### C MP, DLDL, URIC, LIPID #### [facility] [address] [place] [address] Dr. Gabriel Garcia Glucose [Mass/Vol] 94 mg/dL Normal 74-106 [facility] Comment on above: Performed By: #### C MP, DLDL, URIC, LIPID #### [facility] [address] [place] [address] Dr. Gabriel Garcia Potassium [Moles/Vol] 4.4 mmol/L Normal 3.5-5.1 [facility] Comment on above: Performed By: #### C MP, DLDL, URIC, LIPID #### [facility] [address] [place] [address] Dr. Gabriel Garcia Protein [Mass/Vol] 8.1 g/dL Normal 6.4-8.2 [facility] Comment on above: Performed By: #### C MP, DLDL, URIC, LIPID #### [facility] [address] [address] [address] Gabriel Garcia Sodium [Moles/Vol] 139 mmol/L Normal 136-145 [facility] Comment on above: Performed By: #### C MP, DLDL, URIC, LIPID #### [facility] [address] [address] [address] Gabriel Garcia Urea nitrogen [Mass/Vol] 12.0 mg/dL Normal 7.0-18.0 [facility] Comment on above: Performed By: #### C MP, DLDL, URIC, LIPID #### [facility] [address] [address] [address] Gabriel Garcia Urea nitrogen/Creatinine [Mass ratio] 11.9 mg/mg Normal [facility] Comment on above: Performed By: #### C MP, DLDL, URIC, LIPID #### [facility] [address] [address] [address] Gabriel Garcia URIC ACID SERUMon 02-24-2022 Urate [Mass/Vol] 4.8 mg/dL Normal 3.5-7.2 [facility] Comment on above: Performed By: #### C MP, DLDL, URIC, LIPID #### [facility] [address] [address] [address] Gabriel Garcia Encounters Encounter Date Encounter Type Care Provider Facility Start: 04-11-2024 End: 04-11-2024 ambulatory MARIANA GILMAN Not Available Start: 04-06-2024 End: 04-06-2024 ambulatory IRINA Primo ALEX Not Available Start: 03-30-2024 End: 03-30-2024 ambulatory Jordan candis Facility:[facility] Start: 03-30-2024 End: 03-30-2024 Patient encounter procedure Irina Vega [facility] Start: 03-02-2024 End: 03-02-2024 ambulatory IRINA VEGA Not Available Start: 12-17-2022 End: 12-18-[address] JORDAN WYLIE . Facility:[facility] Start: 02-27-2022 Encounter for genera l adult medical examination without abnormal findings DR JORDAN WYLIE . [facility] Start: 02-24-2022 End: 02-25-[address] JORDAN WYLIE . Facility:[facility] Start: 02-24-2022 End: 02-25-2022 Encounter for general adult medical examination without abnormal findings DR JORDAN WYLIE . Facility:[facility] Start: 02-23-[address] JORDAN WYLIE . Facili ty:[facility] Procedures Date Procedure Procedure Detail Performing Clinician Start: 02-24-[address] MICHAEL WYLIE . Comment on above: Performed By: #### P [facility] #### [facility] [address] [place] [address] Dr. Gabriel Garcia Payers Date Payer Category Payer Unknown [id number] 2.16.84 [id number] 1975 Unknown [id number] 2.16.84 [id number] 1977 Unknown [id number] 2.16.84 [id number] 1977 Unknown [id number] 2.16.8 [id number] 1977 Unknown [id number] 2.16.8 [id number] 1977 Unknown [id number] 2.16.8 [id number] 1977 Unknown [id number] 2.16.84 [id number] 1977 Unknown [id number] 2.16.84 [id number] 1977 Unknown [id number] 2.16.84 [id number] 1957 Medicaid [id number] 1957 Medicare [id number] Social History Date Type Detail Facility Tobacco smoking status No Smoking Status Entered [facility] Sex Assigned At Male [facility] Evaluation + Plan note 03-30-2024 Note Date & Type Note Facility 03-30-2024 Evaluation + Plan note Diagnostic Tests PendingEBV Antibody Profile 03/30/24 [facility] Clinical Note 12-17-2022 Note Date & Type Note Facility 12-17-2022 Note PROCEDURE: XR FOOT R T MIN 3 VIEWS HISTORY: Pain in right foot ; posterior lateral foot pain and bruising COMPARISON: None. FINDINGS: BONES:No fracture, acute abnormality, or significant arthropathy. SOFT TISSUES:No visible soft tissue swelling. EFFUSION:None visible. OTHER: Negative. IMPRESSION: 1. No acute or suspicious bone abnormality. 2. No appreciable soft tissue abnormality to account for patient's symptoms. Electronically authenticated by: DANGELO WILLIAM Date: 2022-12-17 16:35 [facility] Evaluation + Plan note Note Date & Type Note Facility Evaluation + Plan note No data available for this section [facility] Hospital Discharge instructions Note Date & Type Note Facility Hospital Discharge instructions No data available for this section [facility] Progress note Note Date & Type Note Facility Progress note No data available for this section [facility] Summary Purpose Family History No Family History Records Found No data available for this section No data available for this section No Family History Records FoundNo Family History Records FoundNo Family History Records FoundNo Family History Records FoundNo Family History Records FoundNo Family History Records FoundNo Family History Records Found Advance Directives No Advanced Directives Records FoundNo Advanced Directives Records FoundNo Advanced Directives Records FoundNo Advanced Directives Records FoundNo Advanced Directives Records FoundNo Advanced Directives Records FoundNo Advanced Directives Records FoundNo Advanced Directives Records Found Additional Source Comments (unrecognized sect ion and content) No Status Records FoundNo Status Records FoundNo Status Records FoundNo Status Records FoundNo Status Records FoundNo Status Records FoundNo Status Records FoundNo Status Records Found INFORMATION SOURCE (unrecogn ized section and content) DATE CREATED AUTHOR 01/02/2023 [facility] DATE CREATED AUTHOR AUTHOR'S ORGANIZ ATION 04/01/2024 [facility] DATE CREATED AUTHOR AUTHOR'S ORGANIZ ATION 04/08/2024 [facility] DATE CREATED AUTHOR AUTHOR'S ORGANIZ ATION 04/11/2024 [facility] Patient Care team informatio n (unrecognized section and content) Personnel Name: Jordan Wylie MD Address: Address: [address] [place] [address] Personnel Name: Jordan Wylie MD Address: Address: [address] [place] [address] FOR RECORDS PERTAINING TO PATIENTS WHO ARE OR HAVE BEEN ENROLLED IN A CHEMICAL DEPENDENCY/SUBSTANCEABUSE PROGRAM, SOME INFORMATION MAY BE OMITTED. This clinical summary was aggregated from multiple sources. Caution should be exercised in using it in the provision of clinical care. This summary normalizes information from multiple sources, and as a consequence, information in this document may materially change the coding, format and clinical context of patient data. In addition, data may be omitted in some cases. CLINICAL DECISIONS SHOULD BE BASED ON THE PRIMARY CLINICAL RECORDS. [facility] [employer] provides no warranty or guarantee of the accuracy or completeness of information in this document.
== END 2024-07-28 12:45 | disposition home or self-care (01) ==
LOC: CT 12:45
PROVIDERS: PCP Family Medicine; Visit Provider Family Medicine
DX: G43.909 Migraine, unspecified, not intractable, without status migrainosus (principal); M17.11 Unilateral primary osteoarthritis, right knee
CPT/HCPCS: 70450

== ENCOUNTER 2024-10-29 09:47 | Emergency (ER) | payer MEDICARE, MEDICAID, SELFPAY ==
[2024-10-29 09:51] VITALS: BP 122/71; PULSE 93; TEMP 37.1; O2SAT 96; BMI 26.5
--- OUTSIDE RECORDS SUMMARY | 2024-10-29 09:59 | XMS_ITS | CCD ---
Author Organization [facility] Care Team Providers Care Binder Stripper Hand Name Role Phone INESSA ., DR ORTEGA Consulting Unavailable HOY ., DR ORTEGA Primary Care Unavailable HOY ., DR ORTEGA Admitting Unavailable HOY ., DR ORTEGA Attending Unavailable HOY ., DR ORTEGA Consulting Unavailable HOY ., DR ORTEGA Primary Care Unavailable HOY ., DR ORTEGA Admitting Unavailable HOY ., DR ORTEGA Attending Unavailable ZIEBER, DR DANGELO Thao Consulting Unavailable HOY ., DR ORTEGA Primary Care Unavailable HOY ., DR ORTEGA Admitting Unavailable HOY ., DR ORTEGA Attending Unavailable Jordan Wylie Primary Care Physician Hoy, Jordan Admitting Unavailable Hoy, Jordan Attending Unavailable Hoy, Jordan Referring Unavailable Hoy, Jordan Admitting Unavailable Hoy, Jordan Referring Unavailable Hoy, Jordan Attending Unavailable Timmis, Irina H Referring Unavailable Timmis, Irina H Attending Unavailable Timmis, Irina H Admitting Unavailable TIMMIS, IRINA H Attending Unavailable JORDAN WYLIE M Referring Unavailable TIMMIS, IRINA H Attending Unavailable MARIANA GILMAN Attending Unavailable Jordan Wylie MD Primary Care Provider [phone] Allergies Allergy Classification Reported Allergen(s) Allergy Type Date of Onset Reaction(s) Facility (2 sources) House dust mite Propensity to adverse reactions 7 [facility] Healthcare (2 sources) Mold Extract Drug Allergy 7 [facility] Healthcare Medications Current Medications Medication Drug Class(es) Dates Sig (Normalized) Sig (Original) cetirizine hydrochloride 10 mg oral tablet (2 sources) Histamine-1 Receptor Antagonist Start: 03-02-2024 End: 03-02-2025 take 1 tablet by mouth once daily as needed cetirizine (ZyrTEC) 10 MG tablet Indications: Chronic pansinusitis Take 1 tablet (10 mg) by mouth Daily as needed for allergies 30 tablet 11 03/02/2024 03/02/2025 Active diclofenac sodium 75 mg delayed release oral tablet (2 sources) Nonsteroidal Anti-inflammatory Drug Start: 12-27-2023 take 1 tablet by mouth in the morning diclofenac (Voltaren) 75 MG EC tablet Take 75 mg by mouth in the morning and 75 mg before bedtime. 12/27/2023 Active [id number] 0.3 ml EPINEPHrine 1 mg/ml auto-injector (2 sources) alpha-Adrenergic Agonist, beta-Adrenergic Agonist, Catecholamine Start: 11-20-2023 EPINEPHrine (Epipen) 0.3 MG/0.3ML injection syringe Inject 1 Syringe as directed 1 (one) time 11/20/2023 Active famotidine 20 mg oral tablet (2 sources) Histamine-2 Receptor Antagonist Start: 04-06-2024 End: 04-01-2025 take 1 tablet by mouth at bedtime famotidine (Pepcid) 20 MG tablet Indications: LPRD (laryngopharyngeal reflux disease) Take 1 tablet (20 mg) by mouth at bedtime 90 tablet 3 04/06/2024 04/01/2025 Active fenofibrate 145 mg oral tablet (2 sources) Peroxisome Proliferator Receptor alpha Agonist Start: 12-04-2023 take 1 tablet by mouth once daily fenofibrate (Tricor) 145 MG tablet Take 145 mg by mouth Daily 12/04/2023 Active fluticasone propionate 0.05 mg/actuat metered dose nasal spray (2 sources) Corticosteroid Start: 03-02-2024 End: 03-02-2025 take 2 spray(s) nasal route once daily fluticasone (Flonase) 50 MCG/ACT nasal spray Indications: Chronic pansinusitis Administer 2 sprays into each nostril Daily Shake gently. Before first use, prime pump. After use, clean tip and replace cap. 16 g 11 03/02/2024 03/02/2025 Active gabapentin 300 mg oral capsule (4 sources) Anti-epileptic Agent Start: 04-11-2024 End: 11-07-2024 take 1 capsule by mouth in the morning, then take 1 capsule by mouth in the evening, then take 1 capsule by mouth at bedtime gabapentin (Neurontin) 300 MG capsule Indications: Nonintractable epilepsy without status epilepticus, unspecified epilepsy type (CMS/HCC) Take 1 capsule (300 mg) by mouth in the morning and 1 capsule (300 mg) in the evening and 1 capsule (300 mg) before bedtime. 90 capsule 2 08/09/2024 11/07/2024 Active OXcarbazepine 300 mg oral tablet (3 sources) Anti-epileptic Agent Start: 04-11-2024 End: 11-07-2024 take 2 tablets by mouth in the morning OXcarbazepine (Trileptal) 300 MG tablet Indications: Seizure disorder (CMS/HCC) Take 2 tablets (600 mg) by mouth in the morning and 2 tablets (600 mg) before bedtime. 120 tablet 2 08/09/2024 11/07/2024 Active Problems Active Problems Problem Classification Problem Date Documented Date Episodic/Chronic Developmental disorders (2 sources) Cognitive developmental delay; Translations: [Developmental disorder of scholastic skills, unspecified] Onset: 02-04-2024 02-04-2024 Chronic Diabetes mellitus without complication (1 source) Type 2 diabetes mellitus without complications; Translations: [TYPE 2 DM WITHOUT COMPLICATIONS] Onset: 02-27-2022 Chronic Disorders of lipid metabolism (1 source) Hyperlipidemia, unspecified; Translations: [HYPERLIPIDEMIA UNSPECIFIED] Onset: 02-27-2022 Chronic Diverticulosis and diverticulitis (2 sources) Diverticulitis; Translations: [Diverticulitis of intestine, part unspecified, without perforation or abscess without bleeding] Onset: 02-22-2024 02-22-2024 Chronic Epilepsy; convulsions (5 sources) Epilepsy; Translations: [Epilepsy, unspecified, not intractable, without status epilepticus] Onset: 02-04-2024 08-09-2024 Chronic Esophageal disorders (2 sources) Laryngopharyngeal reflux; Translations: [Gastro-esophageal reflux disease without esophagitis] Onset: 03-02-2024 03-02-2024 Chronic Headache; including migraine (2 sources) Migraine; Translations: [Migraine, unspecified, not intractable, without status migrainosus] Onset: 02-04-2024 02-04-2024 Chronic Other connective tissue disease (4 sources) Pain in right hand; Translations: [PAIN IN RIGHT HAND] Onset: 12-17-2022 Episodic Other ear and sense organ disorders (2 sources) Hearing loss; Translations: [Unspecified hearing loss, unspecified ear] Onset: 02-22-2024 02-22-2024 Chronic Other upper respiratory disease (2 sources) Seasonal allergic rhinitis; Translations: [Other seasonal allergic rhinitis] Onset: 02-22-2024 02-22-2024 Chronic Other upper respiratory infections (2 sources) Chronic pansinusitis; Translations: [Chronic pansinusitis] Onset: 03-02-2024 03-02-2024 Chronic Past or Other Problems Problem Classification Problem Date Documented Da te Episodic/Chronic Conditions associated with dizziness or vertigo (2 sources) Dizziness; Translations: [Dizziness and giddiness] Onset: 02-04-2024 02-04-2024 Episodic Deficiency and other anemia (1 source) Anemia, unspecified; Translations: [ANEMIA UNSPECIFIED] Onset: 02-27-2022 Episodic Headache; including migraine (2 sources) Headache; Translations: [Headache] Onset: 02-22-2024 02-22-2024 Episodic Other aftercare (1 source) Other chcf (current) drug therapy; Translations: [OTH INTERMEDIATE CURRENT DRUG THERAPY] Onset: 02-27-2022 Episodic Other non-traumatic joint disorders (1 source) Pain in unspecified joint; Translations: [PAIN IN UNSPECIFIED JOINT] Onset: 02-27-2022 Episodic Other screening for suspected conditions (not mental disorders or infectious disease) (1 source) Encounter for screening for malignant neoplasm of prostate; Translations: [ENC SCREEN MALIG NEOPLASM PROSTATE] Onset: 02-27-2022 Episodic Other upper respiratory infections (2 sources) Acute sinusitis; Translations: [Acute sinusitis, unspecified] Onset: 02-22-2024 02-22-2024 Episodic Otitis media and related conditions (2 sources) Otitis media; Translations: [Otitis media, unspecified, unspecified ear] Onset: 02-22-2024 02-22-2024 Episodic Results Test Name Value Interpretation Reference [...] Shekhar Elmore MD Transcribed by: RIGO Technologist: FAREED Normal [facility] EBV Antibody Profileon 04-01 EBV capsid IgG IA Qn (S) >600.0 High 0.0-17.9 [facility] Comment on above: Result Comment: Nega tive <18.0 Equivocal 18.0 - 21.9 Positive >21.9 Performed By: #### 1 [id number] #### [facility] [address] [place] [address] EBV capsid IgM IA Qn (S) <36.0 Invalid Interpretation Code 0.0-35.9 [facility] Comment on above: Result Comment: Nega tive <36.0 Equivocal 36.0 - 43.9 Positive >43.9 Performed By: #### 1 [id number] #### [facility] [address] [place] [address] EBV nuclear IgG IA Qn (S) 298.0 unit/mL High 0.0-17.9 [facility] Comment on above: Result Comment: Nega tive <18.0 Equivocal 18.0 - 21.9 Positive >21.9 Performed By: #### 1 [id number] #### [facility] [address] [place] [address] Service comment (Unsp spec) [Interp] Comment Invalid Interpretation Code [facility] Comment on above: Result Comment: EBV Interpretation [...] never develop antibodies to EBNA. Performed at: [facility] [id number] PhD Jo Ann Olvera Performed By: #### 1 [id number] #### [facility] [address] [place] [address] CT Maxillofacial w/o Contras ton 03-31-2024 CT Maxillofacial w/o Contrast Exam Date/Time: 03/30/2024 14:30 EDT Reason for Exam: J32.4 Report IMPRESSION: NO RADIOGRAPHIC FINDINGS TO SUGGEST ACUTE OR CHRONIC SINUSITIS CLINICAL HISTORY: J32.4 facial pressure COMPARISON: NONE. FINDINGS: Within the [id number] the ventricles are of normal size configuration. [...] Manoj Brown Transcribed by: RIGO Technologist: ANGIE Normal [facility] CBC w/ Auto Diffon 4 Basophils/100 WBC (Bld) 0.7 % Normal 0.0-2.0 [facility] Comment on above: Performed By: #### 2 [id number] #### [facility] [address] [place] [address] Basophils/Leukocytes Auto (Bld) [Pure # fraction] 0.0 E9/L Normal 0.0-0.2 [facility] Comment on above: Performed By: #### 2 [id number] #### [facility] [address] [place] [address] Eosinophils (Bld) [#/Vol] 0.2 E9/L Normal 0.0-0.5 [facility] Comment on above: Performed By: #### 2 [id number] #### [facility] [address] [place] [address] Eosinophils/100 WBC (Bld) 3.9 % Normal 0.0-8.0 [facility] Comment on above: Performed By: #### 2 [id number] #### [facility] [address] [place] [address] Erythrocyte distribution width (RBC) [Ratio] 12.6 % Normal 10.9-14.2 [facility] Comment on above: Performed By: #### 2 [id number] #### [facility] [address] [place] [address] Hematocrit (Bld) [Volume fraction] 41.3 % Normal 37.7-49.0 [facility] Comment on above: Performed By: #### 2 [id number] #### [facility] [address] [place] [address] Hemoglobin (Bld) [Mass/Vol] 14.6 g/dL Normal 13.5-17.5 [facility] Comment on above: Performed By: #### 2 [id number] #### [facility] [address] [place] [address] Lymphocytes (Bld) [#/Vol] 1.4 E9/L Normal 1.0-4.0 [facility] Comment on above: Performed By: #### 2 [id number] #### [facility] [address] [place] [address] Lymphocytes/100 WBC (Bld) 34.8 % Normal 14.0-50.0 [facility] Comment on above: Performed By: #### 2 [id number] #### [facility] [address] [place] [address] MCH (RBC) [Entitic mass] 32.6 pg Normal 27.0-34.0 [facility] Comment on above: Performed By: #### 2 [id number] #### [facility] [address] [place] [address] MCHC (RBC) [Mass/Vol] 35.4 g/dL Normal 31.4-36.0 [facility] Comment on above: Performed By: #### 2 [id number] #### [facility] [address] [place] [address] MCV (RBC) [Entitic vol] 92.1 fL Normal 80.0-100.0 [facility] Comment on above: Performed By: #### 2 [id number] #### [facility] [address] [place] [address] Monocytes (Bld) [#/Vol] 0.6 E9/L Normal 0.2-1.0 [facility] Comment on above: Performed By: #### 2 [id number] #### [facility] [address] [place] [address] Neutrophils (Bld) [#/Vol] 1.8 E9/L Low 2.0-7.5 [facility] Comment on above: Performed By: #### 2 [id number] #### [facility] [address] [place] [address] Neutrophils/100 WBC (Bld) 44.8 % Normal 36.0-75.0 [facility] Comment on above: Performed By: #### 2 [id number] #### [facility] [address] [place] [address] Platelet 318.0 E9/L Normal 150.0-500.0 [facility] Comment on above: Performed By: #### 2 [id number] #### [facility] [address] [place] [address] Platelet mean volume (Bld) [Entitic vol] 6.3 fL Low 6.4-10.8 [facility] Comment on above: Performed By: #### 2 [id number] #### [facility] [address] [place] [address] RBC (Bld) [#/Vol] 4.5 E12/L Normal 4.3-5.9 [facility] Comment on above: Performed By: #### 2 [id number] #### [facility] [address] [place] [address] WBC corrected for nucl RBC Auto (Bld) [#/Vol] 4.1 E9/L Normal 4.0-11.0 [facility] Comment on above: Performed By: #### 2 [id number] #### [facility] [address] [place] [address] CHEMISTRYOrdered By: SYSTEM SYSTEM on 03-30-2024 Albumin [...] 03-30-2024 Albumin [Mass/Vol] 4.5 g/dL Normal 3.3-5.0 [facility] Comment on above: Performed By: #### 2 [id number] #### [facility] [address] [place] [address] Albumin/Globulin (S) [Mass conc ratio] 1.4 Normal 1.1-2.2 [facility] Comment on above: Performed By: #### 2 [id number] #### [facility] [address] [place] [address] ALP [Catalytic activity/Vol] 44 Int._Unit/L Normal 21-98 [facility] Comment on above: Performed By: #### 2 [id number] #### [facility] [address] [place] [address] ALT No additional P-5'-P [Catalytic activity/Vol] 38 Int._Unit/L Normal 6-46 [facility] Comment on above: Performed By: #### 2 [id number] #### [facility] [address] [place] [address] Anion gap [Moles/Vol] 10 mmol/L Normal 6-16 [facility] Comment on above: Performed By: #### 2 [id number] #### [facility] [address] [place] [address] AST [Catalytic activity/Vol] 32 Int._Unit/L Normal 5-43 [facility] Comment on above: Performed By: #### 2 [id number] #### [facility] [address] [place] [address] Bilirubin [Mass/Vol] 0.6 mg/dL Normal 0.0-1.1 [facility] Comment on above: Performed By: #### 2 [id number] #### [facility] [address] [place] [address] Calcium [Mass/Vol] 9.4 mg/dL Normal 8.9-11.1 [facility] Comment on above: Performed By: #### 2 072495 #### [facility] [address] [place] [address] Chloride [Moles/Vol] 101 mmol/L Normal 101-111 [facility] Comment on above: Performed By: #### 2 [id number] #### [facility] [address] [place] [address] CO2 [Moles/Vol] 30 mmol/L Normal 21-31 [facility] Comment on above: Performed By: #### 2 [id number] #### [facility] [address] [place] [address] Creatinine [Mass/Vol] 1.2 mg/dL Normal 0.5-1.3 [facility] Comment on above: Performed By: #### 2 [id number] #### [facility] [address] [place] [address] Globulin (S) [Mass/Vol] 3.2 g/dL Normal 1.4-4.0 [facility] Comment on above: Performed By: #### 2 [id number] #### [facility] [address] [place] [address] Glucose [Mass/Vol] 93 mg/dL Normal 55-199 [facility] Comment on above: Performed By: #### 2 702439 #### [facility] [address] [place] [address] Potassium [Moles/Vol] 4.3 mmol/L Normal 3.5-5.3 [facility] Comment on above: Performed By: #### 2 902315 #### [facility] [address] [place] [address] Protein [Mass/Vol] 7.7 g/dL Normal 6.0-7.8 [facility] Comment on above: Performed By: #### 2 [id number] #### [facility] [address] [place] [address] Sodium [Moles/Vol] 137 mmol/L Normal 135-145 [facility] Comment on above: Performed By: #### 2 [id number] #### [facility] [address] [place] [address] Urea nitrogen [Mass/Vol] 17 mg/dL Normal 5-21 [facility] Comment on above: Performed By: #### 2 [id number] #### [facility] [address] [place] [address] Urea nitrogen/Creatinine [Mass ratio] 14 No Units Normal 10-20 [facility] Comment on above: Performed By: #### 2 [id number] #### [facility] [address] [place] [address] Consent for Treatmenton 03-06 Consent for Treatment [id number] 7F#1.00TIFF Normal [facility] Consent for Treatment [id number] DC#1.00TIFF Normal [facility] HEMATOLOGYOrdered By: SYSTEM SYSTEM on 03-30-2024 Basophils/100 [...] Normal 4.0 - 11.0 E9/L Remisol Heme Lee Screenon 03-30-2024 Heterophile Ab LA Ql (S) Negative Normal Negative [facility] Comment on above: Performed By: #### 2 [id number] #### [facility] [address] [place] [address] Physician Orderon 03-30-2024 Physician Order [id number] 74#1.00TIFF Normal [facility] Physician Order [id number] 6#1.00TIFF Normal [facility] SEROLOGYOrdered By: Guerita Gamino on 03-30-2024 Heterophile Ab LA Ql (S) Negative (03/30/24 3:07 PM) Normal Negative [facility] Man Sero eGFRon 03-30-2024 eGFR 75 mL/min/1.73 m2 Normal >=59 [facility] Comment on above: Order Comment: Order added by Discern Expert. Performed By: #### 1 [id number] #### [facility] [address] [place] [address] Physician Orderon 03-02-2024 Physician Order [id number] DC#1.00TIFF Normal [facility] INSULINon 02-25-2022 Insulin 10.6 uIU/mL Normal 2.6-24.9 [facility] Comment on above: Performed By: #### I NSULIN #### [facility] [address] [place] [address] Dr. Gabriel Garcia CBC AUTO DIFFon 02-24-2022 BASO # 0.1 103/ul Normal 0.0-0.1 [facility] Comment on above: Performed By: #### C BC #### [facility] [address] [place] [address] Dr. Gabriel Garcia Basophils/100 WBC (Bld) 1.0 % Normal 0.2-2.0 [facility] Comment on above: Performed By: #### C BC #### [facility] [address] [place] [address] Dr. Gabriel Garcia EO # 0.3 103/ul Normal 0.0-0.7 [facility] Comment on above: Performed By: #### C BC #### [facility] [address] [place] [address] Dr. Gabriel Garcia Eosinophils/100 WBC (Bld) 5.1 % Normal 0.9-7.0 [facility] Comment on above: Performed By: #### C BC #### [facility] [address] [place] [address] Dr. Gabriel Garcia Erythrocyte distribution width (RBC) [Ratio] 11.9 % Normal 11.0-15.0 [facility] Comment on above: Performed By: #### C BC #### [facility] [address] [place] [address] Dr. Gabriel Garcia Hematocrit (Bld) [Volume fraction] 46.9 % Normal 42.0-54.0 [facility] Comment on above: Performed By: #### C BC #### [facility] [address] [place] [address] Dr. Gabriel Garcia Hemoglobin (Bld) [Mass/Vol] 16.1 g/dL Normal 14.0-18.0 [facility] Comment on above: Performed By: #### C BC #### [facility] [address] [place] [address] Dr. Gabriel Garcia IG # 0.01 10e3/ul Normal 0.00-0.03 [facility] Comment on above: Performed By: #### C BC #### [facility] [address] [place] [address] Dr. Gabriel Garcia IG % 0.2 % Normal 0.0-0.5 [facility] Comment on above: Performed By: #### C BC #### [facility] [address] [place] [address] Dr. Gabriel Garcia LYMPH # 1.9 103/ul Normal 1.2-3.8 [facility] Comment on above: Performed By: #### C BC #### [facility] [address] [place] [address] Dr. Gabriel Garcia Lymphocytes/100 WBC (Bld) 37.4 % Normal 20.5-60.0 [facility] Comment on above: Performed By: #### C BC #### [facility] [address] [place] [address] Dr. Gabriel Garcia MANUAL DIFF REQ NO Normal [facility] Comment on above: Performed By: #### C BC #### [facility] [address] [place] [address] Dr. Gabriel Garcia MCH (RBC) [Entitic mass] 31.8 pg Normal 25.9-34.0 [facility] Comment on above: Performed By: #### C BC #### [facility] [address] [place] [address] Dr. Gabriel Garcia MCHC (RBC) [Mass/Vol] 34.3 g/dL Normal 29.9-35.2 [facility] Comment on above: Performed By: #### C BC #### [facility] [address] [place] [address] Dr. Gabriel Garcia MCV (RBC) [Entitic vol] 92.5 fL Normal 80.0-94.0 [facility] Comment on above: Performed By: #### C BC #### [facility] [address] [place] [address] Dr. Gabriel Garcia MONO # 0.5 103/ul Normal 0.3-0.8 [facility] Comment on above: Performed By: #### C BC #### [facility] [address] [place] [address] Dr. Gabriel Garcia Monocytes/100 WBC (Bld) 9.0 % Normal 1.7-12.0 [facility] Comment on above: Performed By: #### C BC #### [facility] [address] [place] [address] Dr. Gabriel Garcia NEUT # 2.4 103/ul Normal 1.4-6.5 [facility] Comment on above: Performed By: #### C BC #### [facility] [address] [place] [address] Dr. Gabriel Garcia Neutrophils/100 WBC (Bld) 47.3 % Normal 43.0-75.0 [facility] Comment on above: Performed By: #### C BC #### [facility] [address] [address] [address] Gabriel Garcia Platelet mean volume (Bld) [Entitic vol] 8.8 fL Critically low 9.5-13.5 [facility] Comment on above: Performed By: #### C BC #### [facility] [address] [address] [address] Gabriel Garcia PLT 226 103/ul Normal 150-450 [facility] Comment on above: Performed By: #### C BC #### [facility] [address] [address] [address] Gabriel Garcia RBC 5.07 106/ul Normal 4.70-6.10 [facility] Comment on above: Performed By: #### C BC #### [facility] [address] [place] [address] Dr. Gabriel Garcia WBC 5.1 103/ul Normal 4.0-11.0 [facility] Comment on above: Performed By: #### C BC #### [facility] [address] [address] [address] Gabriel Garcia DIRECT LDLon 02-24-2022 Cholesterol in LDL [Mass/Vol] 144 mg/dL Normal [facility] Comment on above: Performed By: #### C MP, DLDL, URIC, LIPID #### [facility] [address] [place] [address] Dr. Gabriel Garcia DLDL NORMAL SEE BELOW Normal [facility] [facility] Comment on above: Result Comment: <100 mg/dl OPTIMAL 100 - 129 mg/dl NEAR OR ABOVE OPTIMAL 130 - 159 mg/dl BORDERLINE HIGH 160 - 189 mg/dl HIGH >190 mg/dl VERY HIGH Performed By: #### C MP, DLDL, URIC, LIPID #### [facility] [address] [place] [address] Dr. Gabriel Garcia GLYCOHEMOGLOBIN A1Con 2021 ADA RECOMMENDATION SEE BELOW Normal [facility] Comment on above: Result Comment: ADA RECOMMENDED LIMIT 4.0 - 6.0 ADA THERAPEUTIC TARGET < 7.0 ACTION SUGGESTED > 7.0 Performed By: #### A 1C #### [facility] [address] [address] [address] Gabriel Garcia Glucose [Mass/Vol] 100 mg/dL Normal [facility] Comment on above: Performed By: #### A 1C #### [facility] [address] [address] [address] Gabriel Garcia HbA1c (Bld) [Mass fraction] 5.1 % Normal 4.5-6.2 [facility] Comment on above: Performed By: #### A 1C #### [facility] [address] [place] [address] Dr. Gabriel Garcia LIPID PROFILEon 02-24-2022 CHOL-HDL RATIO NORM SEE BELOW Normal [facility] Comment on above: Result Comment: 3.3 - 4.4 LOW RISK 4.4 - 7.1 AVERAGE RISK 7.1 - 11.0 MODERATE RISK >11.0 HIGH RISK Performed By: #### C MP, DLDL, URIC, LIPID #### [facility] [address] [place] [address] Dr. Gabriel Garcia Cholesterol [Mass/Vol] 259 mg/dL Critically high <=200 [facility] Comment on above: Performed By: #### C MP, DLDL, URIC, LIPID #### [facility] [address] [address] [address] Gabriel Garcia Cholesterol in HDL [Mass/Vol] 27 mg/dL Critically low 40-60 [facility] Comment on above: Performed By: #### C MP, DLDL, URIC, LIPID #### [facility] [address] [address] [address] Gabriel Garcia Cholesterol.total/Chol esterol in HDL [Mass ratio] 9.6 {ratio} Normal [facility] Comment on above: Performed By: #### C MP, DLDL, URIC, LIPID #### [facility] [address] [address] [address] Gabriel Garcia HDL NORMAL > or = 60 mg/dl - LOW CARDIOVASCULAR RISK <40 mg/dl - HIGH CARDIOVASCULAR RISK Normal [facility] Comment on above: Performed By: #### C MP, DLDL, URIC, LIPID #### [facility] [address] [address] [address] aGbriel Garcia LDL CALC NORMAL SEE BELOW Normal [facility] Comment on above: Result Comment: <100 mg/dl OPTIMAL 100 - 129 mg/dl NEAR OR ABOVE OPTIMAL 130 - 159 mg/dl BORDERLINE HIGH 160 - 189 mg/dl HIGH >190 mg/dl VERY HIGH Performed By: #### C MP, DLDL, URIC, LIPID #### [facility] [address] [address] [address] Gabriel Garcia Triglyceride [Mass/Vol] 469 mg/dL Critically high <=150 [facility] Comment on above: Performed By: #### C MP, DLDL, URIC, LIPID #### [facility] [address] [address] [address] Gabriel Garcia PROF 14(COMP METB)on 022 Albumin [Mass/Vol] 4.1 g/dL Normal 3.4-5.0 [facility] Comment on above: Performed By: #### C MP, DLDL, URIC, LIPID #### [facility] [address] [address] [address] Gabriel Garcia Albumin/Globulin [Mass ratio] 1.0 {ratio} Normal [facility] Comment on above: Performed By: #### C MP, DLDL, URIC, LIPID #### [facility] [address] [address] [address] Gabriel Garcia ALP [Catalytic activity/Vol] 74 U/L Normal 46-116 [facility] Comment on above: Performed By: #### C MP, DLDL, URIC, LIPID #### [facility] [address] [address] [address] Gabriel Garcia ALT [Catalytic activity/Vol] 37 U/L Normal 16-63 [facility] Comment on above: Performed By: #### C MP, DLDL, URIC, LIPID #### [facility] [address] [address] [address] Gabriel Garcia Anion gap [Moles/Vol] 12.8 mmol/L Normal Th e [facility] Comment on above: Performed By: #### C MP, DLDL, URIC, LIPID #### [facility] [address] [address] [address] Gabriel Garcia AST [Catalytic activity/Vol] 36 U/L Normal 15-37 [facility] Comment on above: Performed By: #### C MP, DLDL, URIC, LIPID #### [facility] [address] [place] [address] Dr. Gabriel Garcia Bilirubin [Mass/Vol] 0.4 mg/dL Normal 0.2-1.0 [facility] Comment on above: Performed By: #### C MP, DLDL, URIC, LIPID #### [facility] [address] [place] [address] Dr. Gabriel Garcia Calcium [Mass/Vol] 9.0 mg/dL Normal 8.5-10.1 [facility] Comment on above: Performed By: #### C MP, DLDL, URIC, LIPID #### [facility] [address] [place] [address] Dr. Gabriel Garcia Chloride [Moles/Vol] 103 mmol/L Normal 98-107 [facility] Comment on above: Performed By: #### C MP, DLDL, URIC, LIPID #### [facility] [address] [place] [address] Dr. Gabriel Garcia CO2 [Moles/Vol] 27.6 mmol/L Normal 21.0-32.0 [facility] Comment on above: Performed By: #### C MP, DLDL, URIC, LIPID #### [facility] [address] [place] [address] Dr. Gabriel Garcia Creatinine [Mass/Vol] 1.01 mg/dL Normal 0.70-1.30 [facility] Comment on above: Performed By: #### C MP, DLDL, URIC, LIPID #### [facility] [address] [place] [address] Dr. Gabriel Garcia EGFR-AF KOSOVAN >60 Normal >=60 [facility] Comment on above: Performed By: #### C MP, DLDL, URIC, LIPID #### [facility] [address] [address] [address] Gabriel Garcia EGFR-NON AF KOSOVAN >60 Normal >=60 [facility] Comment on above: Performed By: #### C MP, DLDL, URIC, LIPID #### [facility] [address] [address] [address] Gabriel Garcia Globulin (S) [Mass/Vol] 4.0 g/dL Normal [facility] Comment on above: Performed By: #### C MP, DLDL, URIC, LIPID #### [facility] [address] [address] [address] Gabriel Garcia Glucose [Mass/Vol] 94 mg/dL Normal 74-106 [facility] Comment on above: Performed By: #### C MP, DLDL, URIC, LIPID #### [facility] [address] [address] [address] Gabriel Garcia Potassium [Moles/Vol] 4.4 mmol/L Normal 3.5-5.1 [facility] Comment on above: Performed By: #### C MP, DLDL, URIC, LIPID #### [facility] [address] [address] [address] Gabriel Garcia Protein [Mass/Vol] 8.1 g/dL Normal 6.4-8.2 [facility] Comment on above: Performed By: #### C MP, DLDL, URIC, LIPID #### [facility] [address] [address] [address] Gabriel Garcia Sodium [Moles/Vol] 139 mmol/L Normal 136-145 [facility] Comment on above: Performed By: #### C MP, DLDL, URIC, LIPID #### [facility] [address] [address] [address] Gabriel Garcia Urea nitrogen [Mass/Vol] 12.0 mg/dL Normal 7.0-18.0 [facility] Comment on above: Performed By: #### C MP, DLDL, URIC, LIPID #### [facility] [address] [address] [address] Gabriel Garcia Urea nitrogen/Creatinine [Mass ratio] 11.9 mg/mg Normal [facility] Comment on above: Performed By: #### C MP, DLDL, URIC, LIPID #### [facility] [address] [place], [place] [address] Dr. Gabriel Garcia URIC ACID SERUMon 02-24-2022 Urate [Mass/Vol] 4.8 mg/dL Normal 3.5-7.2 [facility] Comment on above: Performed By: #### C MP, DLDL, URIC, LIPID #### [facility] [address] [place], [place] [address] Dr. Gabriel Garcia Encounters Encounter Date Encounter Type Care Provider Facility Start: 08-09-2024 End: 08-09-2024 Telephone encounter Mariana Gilman APPLICATION TECHNICIAN Work Phone: [facility] Comment on above: Med Refill Start: 05-24-2024 End: 05-24-2024 Telephone encounter Mariana Gilman APPLICATION TECHNICIAN Work Phone: [facility] Start: 04-11-2024 End: 04-11-2024 ambulatory MARIANA GILMAN Not Available Start: 04-06-2024 End: 04-06-2024 ambulatory IRINA H TIMMIS Not Available Start: 03-30-2024 End: 03-30-2024 ambulatory Jordan Wylie Facility:[facility] Start: 03-30-2024 End: 03-30-2024 Patient encounter procedure Irina H Timmis [facility] Start: 03-02-2024 End: 03-02-2024 ambulatory IRINA H TIMMIS Not Available Start: 12-17-2022 End: 12-18-[address] JORDAN WYLIE . Facility:[facility] Start: 02-27-2022 Encounter for genera l adult medical examination without abnormal findings DR JORDAN WYLIE . [facility] Start: 02-24-2022 End: 02-25-[address] JORDAN WYLIE . Facility:[facility] Start: 02-24-2022 End: 02-25-2022 Encounter for general adult medical examination without abnormal findings DR JORDAN WYLIE . Facility:[facility] Start: 02-23-[address] JORDAN WYLIE . Facili ty:[facility] Procedures Date Procedure Procedure Detail Performing Clinician Start: 02-24-[address] MICHAEL WYLIE . Comment on above: Performed By: #### P [facility] #### [facility] [address] [place], [place] [address] Dr. Gabriel Garcia Plan of Treatment Date Care Activity Detail Author Start: 10-17-2024 End: 10-17-2024 Patient encounter procedure 10/17/2024 9:40 AM EST [facility] [address] [place] [address] Mariana Gilman NP [address] [place] [place] [facility] Start: 06-05-2024 Influenza vaccination Influenza Vacc ine (#1) [facility] Start: 1975 Screening for malign ant neoplasm of colon [facility] Immunizations Immunization Date Immunization Notes Care Provider Fa cility 08-07-2022 influenza virus vacc ine, unspecified formulation Mariana Gilman NP Work Phone: [facility] Payers Date Payer Category Payer Medicare AETNA MEDICARE A DVANTAGE AETNA MEDICARE REPLACEMENT [id number] 2023-Present [address] [place] [address] [id number] 2019 Medicaid [id number] 1975 Unknown [id number] 1975 Unknown [id number] 1977 Unknown [id number] 1977 Unknown [id number] 1977 Unknown [id number] 1977 Unknown [id number] 1977 Unknown [id number] 1977 Unknown [id number] 1975 Unknown [id number] 1957 Medicaid [id number] 1957 Medicare [id number] Social History Date Type Detail Facility Tobacco smoking status [facility] Start: 04-06-2024 Sex Assigned At Male F [facility] Start: 02-04-2024 Tobacco smoking stat [facility] Never smoked tobacco [facility] Start: 02-04-2024 Tobacco use and exposure Smokeless tobacco non-user [facility] Start: 04-06-2024 Alcoholic beverage intake Lifetime non-drinker (finding) [facility] Start: 04-06-2024 History of Social function [facility] Start: 1975 Sex assigned at Not on file [facility] Clinical Notes 12-17-2022 to 08-09-2024 Telephone Encounter - Orquidea Lobo - 08/09/2024 8:37 AM ESTTelephone Encounter - Orquidea Lobo - 08/09/2024 8:37 AM ESTTelephone Encounter - Lelo Hirsch NP - 05/24/2024 2:55 PM EDT Note Date & Type Note Facility 08-09-2024 Telephone encount er Note Patient gwyn called and Luis Fernando needs a refill of - Gabapentin 300 mg Oxcarbazepine 300 mg Pharmacy is [facility] in [place], [place]. [facility] 08-09-2024 Miscellaneous Notes Formattin g of this note might be different from the original. Patient gwyn called and Luis Fernando needs a refill of - Gabapentin 300 mg Oxcarbazepine 300 mg Pharmacy is [facility] in [place], [place]. documented in this encounter [facility] 05-24-2024 Telephone encount er Note Done [facility] 05-24-2024 Miscellaneous Notes Formattin g of this note might be different from the original. Done MOTHER CALLED IN STATING THAT THE PATIENT NEEDED A REFILL OF GABAPENTIN SENT TO [facility] IN [place] documented in this encounter [facility] 05-24-2024 Telephone encount er Note MOTHER CALLED IN STATING THAT THE PATIENT NEEDED A REFILL OF GABAPENTIN SENT TO [facility] IN [place] [facility] 03-30-2024 Evaluation + Plan note Diagnostic Tests PendingEBV Antibody Profile 03/30/24 [facility] 12-17-2022 Note PROCEDURE: XR FOOT R T [...] authenticated by: DANGELO WILLIAM Date: 2022-12-17 16:35 [facility] Evaluation + Plan note No data available for this section [facility] Evaluation note Diagnosis Nonintractable epilepsy without status epilepticus, unspecified epilepsy type (CMS/HCC) Seizure disorder (CMS/HCC) Unspecified epilepsy without mention of intractable epilepsy [facility] Nonintractable epilepsy without status epilepticus, unspecified epilepsy type (CMS/HCC) [facility] No data available for this section [facility] No data available for this section [facility] Summary Purpose Family History No [...] and content) DATE CREATED AUTHOR 01/02/2023 [facility] DATE CREATED AUTHOR AUTHOR'S ORGANIZ ATION 04/01/2024 [facility] DATE CREATED AUTHOR AUTHOR'S ORGANIZ ATION 04/08/2024 [facility] DATE CREATED AUTHOR AUTHOR'S ORGANIZ ATION 04/11/2024 [facility] EPIC Patient Care team informatio n (unrecognized section and content) [employer] Relationship Specialty Start Date End Date Jordan Wylie MD [address] [place] [address] PCP - General Family Medicine 02/03/24 [employer] Relationship Specialty Start Date End Date Jordan Wylie MD [address] [place] [address] PCP - General Family Medicine 02/03/24 Reason for Visit (unrecogniz ed section and content) Reason Onset Date Comments Med Refill 08/09/2024 FOR RECORDS PERTAINING TO PATIENTS WHO ARE [...] BE BASED ON THE PRIMARY CLINICAL RECORDS. [facility]. provides no warranty or guarantee of the accuracy or completeness of information in this document.
[2024-10-29 10:07] VITALS: O2SAT 95
--- NOTE | 2024-10-29 10:22 | ED_ITS ---
HPI - URI/Sore Throat General Chief Complaint: Upper Respiratory Infection Stated Complaint: fever Time Seen by Provider: 10/29/24 09:49 Source: patient Limitations: no limitations History of Present Illness HPI Narrative: pt with 4-5 days of flu like illness - nasal congestion, runny nose, cough, muscle aches and fatigue. he developed a fever this morning. They called Dr lee's office but they could not see him - they called in a Rx for tessalon perles and bactrim. he has no skin infection or urinary symptoms. tessalon perles is not helping the cough. No GI or symptoms Related Data Home Medications ?Medication ?Instructions ?Recorded ?Confirmed cetirizine 10 mg tablet (Allergy 10 mg PO DAILY 10/29/24 10/29/24 Relief (cetirizine)) famotidine 20 mg tablet 20 mg PO DAILY 10/29/24 10/29/24 fenofibrate nanocrystallized 145 145 mg PO DAILY 10/29/24 10/29/24 mg tablet gabapentin 300 mg capsule 300 mg PO TID 10/29/24 10/29/24 oxcarbazepine 300 mg tablet 600 mg PO BID 10/29/24 10/29/24 pantoprazole 40 mg tablet,delayed 40 mg PO DAILY 10/29/24 10/29/24 release sulfamethoxazole 800 1 tab PO BID 10/29/24 10/29/24 mg-trimethoprim 160 mg tablet Previous Rx's ?Medication ?Instructions ?Recorded azithromycin 250 mg tablet See Rx Instructions PO .COMPLEX #6 10/29/24 tabs ckdyaaztqnrtgnz-hpfkrxebnbgfovh-VZ 10 ml PO Q6H PRN cold symptoms 10/29/24 2 mg-30 mg-10 mg/5 mL oral syrup #118 mL (Bromfed DM) Allergies Allergy/AdvReac Type Severity Reaction Status Date / Time No Known Drug Allergies Allergy Verified 10/29/24 09:57 PFSH PFSH Social History Little interest or pleasure in doing things: not at all Feeling down, depressed, or hopeless: not at all Exam Narrative Exam Narrative: Nurses notes and vital signs reviewed and patient is not hypoxic. afebrile General: Well-appearing and in no apparent distress. Skin: Warm, dry, no pallor noted. No rash. Head: Normocephalic, atraumatic. Neck: Supple, non-tender. No meningismus or cervical lymphadenopathy Eye: Pupils are equal, round and EOMI. No scleral icterus. Ears, Nose, Mouth, and Throat: TM are clear. Moderate clear rhinorrhea with nasal mucosal hypertrophy. Postnasal drip noted. Oral mucosa is moist, no posterior oropharynx erythema, uvula is mid-line Cardiovascular: Regular Rate and Rhythm without murmur, gallop or rub. Respiratory: No accessory muscle use or respiratory distress. Lungs with some scattered rhonchi without wheezing or rales that clear with cough. Musculoskeletal: normal ROM, no calf or popliteal tenderness, no lower extremity edema/swelling GI: Abdomen is soft, non-distended. Normal bowel sounds. No tenderness to palpation. No rebound, guarding, or rigidity noted. Neurological: A&O x4. No cranial nerve dysfunction observed. No truncal ataxia. Moves all extremities. Sensation intact. Psychiatric: Cooperative and interactive. Normal mood and affect. Constitutional Vital Signs, click to edit/add: Last Vital Signs Temp 98.8 F 10/29/24 09:51 Pulse 93 H 10/29/24 09:51 Resp 20 10/29/24 09:51 BP 122/71 10/29/24 09:51 Pulse Ox 95 10/29/24 10:07 O2 Del Method Nasal Cannula 10/29/24 10:07 Course Vital Signs Vital signs: Vital Signs Temperature 98.8 F 10/29/24 09:51 Pulse Rate 93 H 10/29/24 09:51 Respiratory Rate 20 10/29/24 09:51 Blood Pressure 122/71 10/29/24 09:51 Pulse Oximetry 96 10/29/24 09:51 Oxygen Delivery Method Room Air 10/29/24 09:51 Temperature 98.8 F 10/29/24 09:51 Pulse Rate 93 H 10/29/24 09:51 Respiratory Rate 20 10/29/24 09:51 Blood Pressure 122/71 10/29/24 09:51 Pulse Oximetry 95 10/29/24 10:07 Oxygen Delivery Method Nasal Cannula 10/29/24 10:07 MDM - URI/Sore Throat MDM Narrative Medical decision making narrative: Patient likely has a viral infection but he has already been started on antibiotics, although I do not agree with the choice. We agreed to change him to azithromycin and also prescribe Bromfed-DM instead of the Tessalon Perles. Patient was instructed to stop the Bactrim. Discharge Plan Discharge Chief Complaint: Upper Respiratory Infection Clinical Impression: Upper respiratory infection, Bronchitis Patient Disposition: Home, Self-Care Time of Disposition Decision: 10:25 Prescriptions / Home Meds: New gbbngklsusabrpp-uffonwveg-VJ [Bromfed DM] 2-30-10 mg/5 mL syrup 10 ml PO Q6H PRN (Reason: cold symptoms) Qty: 118 0RF azithromycin 250 mg tablet See Rx Instructions .ROUTE .COMPLEX Qty: 6 0RF Rx Instructions: For 250 mg dose pack: take 500 mg today (day 1), then 250 mg for 4 days (days 2-5) No Action sulfamethoxazole-trimethoprim 800-160 mg tablet 1 tab PO BID gabapentin 300 mg capsule 300 mg PO TID oxcarbazepine 300 mg tablet 600 mg PO BID cetirizine [Allergy Relief (cetirizine)] 10 mg tablet 10 mg PO DAILY fenofibrate nanocrystallized 145 mg tablet 145 mg PO DAILY famotidine 20 mg tablet 20 mg PO DAILY pantoprazole 40 mg tablet,delayed release (DR/EC) 40 mg PO DAILY Print Language: Citizen Of [place] Instructions: Upper Respiratory Infection (ED), Acute Bronchitis (ED) Referrals: Bertrand Lee MD [Primary Care Provider] - 1 week
== END 2024-10-29 10:37 | disposition home or self-care (01) ==
PROVIDERS: Emergency Provider Emergency Medicine; PCP Family Medicine
DX: J40 Bronchitis, not specified as acute or chronic (principal); J06.9 Acute upper respiratory infection, unspecified
CPT/HCPCS: 99283

== ENCOUNTER 2024-11-26 10:00 | Outpatient (OUT) | payer MEDICARE, MEDICAID, SELFPAY ==
--- NOTE | 2024-11-26 | XR_ITS ---
The [address] [address] Patient Name: KJ NICOLAS MRN: [id number] date: 1975 Sex: M Assigned Patient Location: LAB Current Patient Location: LAB Accession/Order Number: [id number] Exam Date: 11/26/2024 10:36 Report Date: 11/26/2024 10:38 At the request of: JORDAN WYLIE MD Procedure: XR hip RT 2V w/ pelvis XR hip RT 2V w/ pelvis 11/26/2024 10:29 AM SIGNS AND SYMPTOMS: Back and hip pain after fall PROTOCOL: Frontal radiograph of the pelvis with frontal and frog-leg views of the right hip COMPARISON: 08/26/2023 FINDINGS: The bony ring of the pelvis is intact. The joint spaces of the hips are preserved. There is no fracture or dislocation. Vascular calcifications are present in the pelvis. XR/XR hip RT 2V w/ pelvis IMPRESSION: No evidence of fracture. No significant degenerative change. Impression dictated by: Isael Amaro M.D.11/26/2024 10:38 AM Dictation Location: [place] [address] Electronically authenticated by: [id number] Y Date: 11/26/2024 10:38
--- NOTE | 2024-11-26 | XR_ITS ---
The [address] [address] Patient Name: KJ NICOLAS MRN: [id number] date: 1975 Sex: M Assigned Patient Location: LAB Current Patient Location: LAB Accession/Order Number: [id number] Exam Date: 11/26/2024 10:33 Report Date: 11/26/2024 10:36 At the request of: JORDAN WYLIE MD Procedure: XR lumbar spine min 4V XR lumbar spine min 4V 11/26/2024 10:29 AM SIGNS AND SYMPTOMS: Fall, back pain and hip pain PROTOCOLS: Frontal, lateral, and oblique radiographs of the lumbar spine COMPARISON: 04/15/2023 FINDINGS: The alignment, development and bony structures are normal. There is no fracture or destructive lesion. Mild disc height loss is noted at L5-S1. There is endplate irregularity with Schmorl's information at the superior endplate of L2 and L3 which is unchanged. The sacrum and sacroiliac joints are normal. XR/XR lumbar spine min 4V IMPRESSION: No acute displaced fracture. Mild disc height loss is noted at L5-S1. There is endplate irregularity with Schmorl's information at the superior endplate of L2 and L3 which is unchanged. Impression dictated by: Isael Amaro M.D.11/26/2024 10:36 AM Dictation Location: [place] [address] Electronically authenticated by: [id number] Y Date: 11/26/2024 10:36
--- OUTSIDE RECORDS SUMMARY | 2024-11-26 10:03 | XMS_ITS | CCD ---
Author Organization [facility] Care Team Providers Care Shop Worker Name Role Phone INESSA ., DR ORTEGA [...] Unavailable Jordan Wylie MD Primary Care Provider [phone] Allergies Allergy Classification Reported Allergen(s) Allergy Type Date of Onset Reaction(s) Facility (2 sources) House dust mite Propensity to adverse reactions 7 [facility] Healthcare (2 sources) Mold Extract Drug Allergy 7 [facility] Healthcare Medications Current Medications Medication Drug Class(es) [...] and 75 mg before bedtime. 12/27/2023 Active [id number] 0.3 ml EPINEPHrine 1 mg/ml auto-injector (2 [...] 02-22-2024 Episodic Other aftercare (1 source) Other snf (current) drug therapy; Translations: [[employer] CURRENT DRUG THERAPY] Onset: 02-27-2022 Episodic Other [...] MD Transcribed by: RIGO Technologist: FAREED Normal [facility] EBV Antibody Profileon 04-01 EBV capsid IgG IA Qn (S) >600.0 High 0.0-17.9 [facility] Comment on above: Result Comment: Nega tive <18.0 Equivocal 18.0 - 21.9 Positive >21.9 Performed By: #### 1 [id number] #### [facility] [address] [place] [address] EBV capsid IgM IA Qn (S) <36.0 Invalid Interpretation Code 0.0-35.9 [facility] Comment on above: Result Comment: Nega tive <36.0 Equivocal 36.0 - 43.9 Positive >43.9 Performed By: #### 1 [id number] #### [facility] [address] [place] [address] EBV nuclear IgG IA Qn (S) 298.0 unit/mL High 0.0-17.9 [facility] Comment on above: Result Comment: Nega tive <18.0 Equivocal 18.0 - 21.9 Positive >21.9 Performed By: #### 1 [id number] #### [facility] [address] [place] [address] Service comment (Unsp spec) [Interp] Comment Invalid Interpretation Code [facility] Comment on above: Result Comment: [...] never develop antibodies to EBNA. Performed at: [facility] [id number] PhD Jo Ann Olvera Performed By: #### 1 [id number] #### [facility] [address] [place] [address] CT Maxillofacial w/o Contras ton 03-31-2024 CT Maxillofacial w/o Contrast Exam Date/Time: 03/30/2024 14:30 EDT Reason for Exam: J32.4 Report IMPRESSION: NO RADIOGRAPHIC FINDINGS TO SUGGEST ACUTE OR CHRONIC SINUSITIS CLINICAL HISTORY: J32.4 facial pressure COMPARISON: NONE. FINDINGS: Within the [id number] the ventricles are of normal size configuration. [...] Brown Transcribed by: RIGO Technologist: ANGIE Normal [facility] CBC w/ Auto Diffon 4 Basophils/100 WBC (Bld) 0.7 % Normal 0.0-2.0 [facility] Comment on above: Performed By: #### 2 [id number] #### [facility] [address] [place] [address] Basophils/Leukocytes Auto (Bld) [Pure # fraction] 0.0 E9/L Normal 0.0-0.2 [facility] Comment on above: Performed By: #### 2 [id number] #### [facility] [address] [place] [address] Eosinophils (Bld) [#/Vol] 0.2 E9/L Normal 0.0-0.5 [facility] Comment on above: Performed By: #### 2 [id number] #### [facility] [address] [place] [address] Eosinophils/100 WBC (Bld) 3.9 % Normal 0.0-8.0 [facility] Comment on above: Performed By: #### 2 [id number] #### [facility] [address] [place] [address] Erythrocyte distribution width (RBC) [Ratio] 12.6 % Normal 10.9-14.2 [facility] Comment on above: Performed By: #### 2 [id number] #### [facility] [address] [place] [address] Hematocrit (Bld) [Volume fraction] 41.3 % Normal 37.7-49.0 [facility] Comment on above: Performed By: #### 2 [id number] #### [facility] [address] [place] [address] Hemoglobin (Bld) [Mass/Vol] 14.6 g/dL Normal 13.5-17.5 [facility] Comment on above: Performed By: #### 2 [id number] #### [facility] [address] [place] [address] Lymphocytes (Bld) [#/Vol] 1.4 E9/L Normal 1.0-4.0 [facility] Comment on above: Performed By: #### 2 [id number] #### [facility] [address] [place] [address] Lymphocytes/100 WBC (Bld) 34.8 % Normal 14.0-50.0 [facility] Comment on above: Performed By: #### 2 [id number] #### [facility] [address] [place] [address] MCH (RBC) [Entitic mass] 32.6 pg Normal 27.0-34.0 [facility] Comment on above: Performed By: #### 2 [id number] #### [facility] [address] [place] [address] MCHC (RBC) [Mass/Vol] 35.4 g/dL Normal 31.4-36.0 [facility] Comment on above: Performed By: #### 2 [id number] #### [facility] [address] [place] [address] MCV (RBC) [Entitic vol] 92.1 fL Normal 80.0-100.0 [facility] Comment on above: Performed By: #### 2 [id number] #### [facility] [address] [place] [address] Monocytes (Bld) [#/Vol] 0.6 E9/L Normal 0.2-1.0 [facility] Comment on above: Performed By: #### 2 [id number] #### [facility] [address] [place] [address] Neutrophils (Bld) [#/Vol] 1.8 E9/L Low 2.0-7.5 [facility] Comment on above: Performed By: #### 2 [id number] #### [facility] [address] [place] [address] Neutrophils/100 WBC (Bld) 44.8 % Normal 36.0-75.0 [facility] Comment on above: Performed By: #### 2 [id number] #### [facility] [address] [place] [address] Platelet 318.0 E9/L Normal 150.0-500.0 [facility] Comment on above: Performed By: #### 2 [id number] #### [facility] [address] [place] [address] Platelet mean volume (Bld) [Entitic vol] 6.3 fL Low 6.4-10.8 [facility] Comment on above: Performed By: #### 2 110648 #### [facility] [address] [place] [address] RBC (Bld) [#/Vol] 4.5 E12/L Normal 4.3-5.9 [facility] Comment on above: Performed By: #### 2 [id number] #### [facility] [address] [place] [address] WBC corrected for nucl RBC Auto (Bld) [#/Vol] 4.1 E9/L Normal 4.0-11.0 [facility] Comment on above: Performed By: #### 2 [id number] #### [facility] [address] [place] [address] CHEMISTRYOrdered By: SYSTEM SYSTEM on 03-30-2024 Albumin [...] 03-30-2024 Albumin [Mass/Vol] 4.5 g/dL Normal 3.3-5.0 [facility] Comment on above: Performed By: #### 2 [id number] #### [facility] [address] [place] [address] Albumin/Globulin (S) [Mass conc ratio] 1.4 Normal 1.1-2.2 [facility] Comment on above: Performed By: #### 2 752830 #### [facility] [address] [place] [address] ALP [Catalytic activity/Vol] 44 Int._Unit/L Normal 21-98 [facility] Comment on above: Performed By: #### 2 045313 #### [facility] [address] [place] [address] ALT No additional P-5'-P [Catalytic activity/Vol] 38 Int._Unit/L Normal 6-46 [facility] Comment on above: Performed By: #### 2 [id number] #### [facility] [address] [place] [address] Anion gap [Moles/Vol] 10 mmol/L Normal 6-16 [facility] Comment on above: Performed By: #### 2 927093 #### [facility] [address] [place] [address] AST [Catalytic activity/Vol] 32 Int._Unit/L Normal 5-43 [facility] Comment on above: Performed By: #### 2 554182 #### [facility] [address] [place] [address] Bilirubin [Mass/Vol] 0.6 mg/dL Normal 0.0-1.1 [facility] Comment on above: Performed By: #### 2 315995 #### [facility] [address] [place] [address] Calcium [Mass/Vol] 9.4 mg/dL Normal 8.9-11.1 [facility] Comment on above: Performed By: #### 2 390055 #### [facility] [address] [place] [address] Chloride [Moles/Vol] 101 mmol/L Normal 101-111 [facility] Comment on above: Performed By: #### 2 299794 #### [facility] [address] [place] [address] CO2 [Moles/Vol] 30 mmol/L Normal 21-31 [facility] Comment on above: Performed By: #### 2 [id number] #### [facility] [address] [place] [address] Creatinine [Mass/Vol] 1.2 mg/dL Normal 0.5-1.3 [facility] Comment on above: Performed By: #### 2 768292 #### [facility] [address] [place] [address] Globulin (S) [Mass/Vol] 3.2 g/dL Normal 1.4-4.0 [facility] Comment on above: Performed By: #### 2 [id number] #### [facility] [address] [place] [address] Glucose [Mass/Vol] 93 mg/dL Normal 55-199 [facility] Comment on above: Performed By: #### 2 022548 #### [facility] [address] [place] [address] Potassium [Moles/Vol] 4.3 mmol/L Normal 3.5-5.3 [facility] Comment on above: Performed By: #### 2 959146 #### [facility] [address] [place] [address] Protein [Mass/Vol] 7.7 g/dL Normal 6.0-7.8 [facility] Comment on above: Performed By: #### 2 635451 #### [facility] [address] [place] [address] Sodium [Moles/Vol] 137 mmol/L Normal 135-145 [facility] Comment on above: Performed By: #### 2 [id number] #### [facility] [address] [place] [address] Urea nitrogen [Mass/Vol] 17 mg/dL Normal 5-21 [facility] Comment on above: Performed By: #### 2 [id number] #### [facility] [address] [place] [address] Urea nitrogen/Creatinine [Mass ratio] 14 No Units Normal 10-20 [facility] Comment on above: Performed By: #### 2 [id number] #### [facility] [address] [place] [address] Consent for Treatmenton 03-06 Consent for Treatment [id number] 7F#1.00TIFF Normal [facility] Consent for Treatment [id number] DC#1.00TIFF Normal [facility] HEMATOLOGYOrdered By: SYSTEM SYSTEM on [...] Normal 4.0 - 11.0 E9/L Remisol Heme [place] Screenon 03-30-2024 Heterophile Ab LA Ql (S) Negative Normal Negative [facility] Comment on above: Performed By: #### 2 [id number] #### [facility] [address] [place] [address] Physician Orderon 03-30-2024 Physician Order [id number] 74#1.00TIFF Normal [facility] Physician Order [id number] 6#1.00TIFF Normal [facility] SEROLOGYOrdered By: Guerita Gamino on 03-30-2024 Heterophile Ab LA Ql (S) Negative (03/30/24 3:07 PM) Normal Negative [facility] Man Sero eGFRon 03-30-2024 eGFR 75 mL/min/1.73 m2 Normal >=59 [facility] Comment on above: Order Comment: Order added by Discern Expert. Performed By: #### 1 [id number] #### [facility] [address] [place] [address] Physician Orderon 03-02-2024 Physician Order [id number] DC#1.00TIFF Normal [facility] INSULINon 02-25-2022 Insulin 10.6 uIU/mL Normal 2.6-24.9 [facility] Comment on above: Performed By: #### I NSULIN #### [facility] [address] [place] [address] Dr. Gabriel Garcia CBC AUTO DIFFon 02-24-2022 BASO # 0.1 103/ul Normal 0.0-0.1 [facility] Comment on above: Performed By: #### C BC #### [facility] [address] [place] [address] Dr. Gabriel Garcia Basophils/100 WBC (Bld) 1.0 % Normal 0.2-2.0 [facility] Comment on above: Performed By: #### C BC #### [facility] [address] [place] [address] Dr. Gabriel Garcia EO # 0.3 103/ul Normal 0.0-0.7 [facility] Comment on above: Performed By: #### C BC #### [facility] [address] [place] [address] Dr. Gabriel Garcia Eosinophils/100 WBC (Bld) 5.1 % Normal 0.9-7.0 [facility] Comment on above: Performed By: #### C BC #### [facility] [address] [place] [address] Dr. Gabriel Garcia Erythrocyte distribution width (RBC) [Ratio] 11.9 % Normal 11.0-15.0 [facility] Comment on above: Performed By: #### C BC #### [facility] [address] [place] [address] Dr. Gabriel Garcia Hematocrit (Bld) [Volume fraction] 46.9 % Normal 42.0-54.0 [facility] Comment on above: Performed By: #### C BC #### [facility] [address] [place] [address] Dr. Gabriel Garcia Hemoglobin (Bld) [Mass/Vol] 16.1 g/dL Normal 14.0-18.0 [facility] Comment on above: Performed By: #### C BC #### [facility] [address] [place] [address] Dr. Gabriel Garcia IG # 0.01 10e3/ul Normal 0.00-0.03 [facility] Comment on above: Performed By: #### C BC #### [facility] [address] [place] [address] Dr. Gabriel Garcia IG % 0.2 % Normal 0.0-0.5 [facility] Comment on above: Performed By: #### C BC #### [facility] [address] [place] [address] Dr. Gabriel Garcia LYMPH # 1.9 103/ul Normal 1.2-3.8 [facility] Comment on above: Performed By: #### C BC #### [facility] [address] [place] [address] Dr. Gabriel Garcia Lymphocytes/100 WBC (Bld) 37.4 % Normal 20.5-60.0 [facility] Comment on above: Performed By: #### C BC #### [facility] [address] [place] [address] Dr. Gabriel Garcia MANUAL DIFF REQ NO Normal [facility] Comment on above: Performed By: #### C BC #### [facility] [address] [place] [address] Dr. Gabriel Garcia MCH (RBC) [Entitic mass] 31.8 pg Normal 25.9-34.0 [facility] Comment on above: Performed By: #### C BC #### [facility] [address] [place] [address] Dr. Gabriel Garcia MCHC (RBC) [Mass/Vol] 34.3 g/dL Normal 29.9-35.2 [facility] Comment on above: Performed By: #### C BC #### [facility] [address] [place] [address] Dr. Gabriel Garcia MCV (RBC) [Entitic vol] 92.5 fL Normal 80.0-94.0 [facility] Comment on above: Performed By: #### C BC #### [facility] [address] [place] [address] Dr. Gabriel Garcia MONO # 0.5 103/ul Normal 0.3-0.8 [facility] Comment on above: Performed By: #### C BC #### [facility] [address] [place] [address] Dr. Gabriel Garcia Monocytes/100 WBC (Bld) 9.0 % Normal 1.7-12.0 [facility] Comment on above: Performed By: #### C BC #### [facility] [address] [place] [address] Dr. Gabriel Garcia NEUT # 2.4 103/ul Normal 1.4-6.5 [facility] Comment on above: Performed By: #### C BC #### [facility] [address] [place] [address] Dr. Gabriel Garcia Neutrophils/100 WBC (Bld) 47.3 % Normal 43.0-75.0 [facility] Comment on above: Performed By: #### C BC #### [facility] [address] [address] [address] Gabriel Garcia Platelet mean volume (Bld) [Entitic vol] 8.8 fL Critically low 9.5-13.5 [facility] Comment on above: Performed By: #### C BC #### [facility] [address] [address] [address] Gabriel Garcia PLT 226 103/ul Normal 150-450 [facility] Comment on above: Performed By: #### C BC #### [facility] [address] [address] [address] Gabriel Garcia RBC 5.07 106/ul Normal 4.70-6.10 [facility] Comment on above: Performed By: #### C BC #### [facility] [address] [place] [address] Dr. Gabriel Garcia WBC 5.1 103/ul Normal 4.0-11.0 [facility] Comment on above: Performed By: #### C BC #### [facility] [address] [address] [address] Gabriel Garcia DIRECT LDLon 02-24-2022 Cholesterol in LDL [Mass/Vol] 144 mg/dL Normal [facility] Comment on above: Performed By: #### C MP, DLDL, URIC, LIPID #### [facility] [address] [place] [address] Dr. Gabriel Garcia DLDL NORMAL SEE BELOW Normal [facility] Comment on above: Result Comment: <100 mg/dl OPTIMAL 100 - 129 mg/dl NEAR OR ABOVE OPTIMAL 130 - 159 mg/dl BORDERLINE HIGH 160 - 189 mg/dl HIGH >190 mg/dl VERY HIGH Performed By: #### C MP, DLDL, URIC, LIPID #### [facility] [address] [place] [address] Dr. Gabriel Garcia GLYCOHEMOGLOBIN A1Con 2021 ADA RECOMMENDATION SEE BELOW Normal [facility] Comment on above: Result Comment: ADA RECOMMENDED LIMIT 4.0 - 6.0 ADA THERAPEUTIC TARGET < 7.0 ACTION SUGGESTED > 7.0 Performed By: #### A 1C #### [facility] [address] [address] [address] Gabriel Garcia Glucose [Mass/Vol] 100 mg/dL Normal [facility] Comment on above: Performed By: #### A 1C #### [facility] [address] [address] [address] Gabriel Garcia HbA1c (Bld) [Mass fraction] 5.1 % Normal 4.5-6.2 [facility] Comment on above: Performed By: #### A 1C #### [facility] [address] [place] [address] Dr. Gabriel Garcia LIPID PROFILEon 02-24-2022 CHOL-HDL RATIO NORM SEE BELOW Normal [facility] Comment on above: Result Comment: 3.3 - 4.4 LOW RISK 4.4 - 7.1 AVERAGE RISK 7.1 - 11.0 MODERATE RISK >11.0 HIGH RISK Performed By: #### C MP, DLDL, URIC, LIPID #### [facility] [address] [place] [address] Dr. Gabriel Garcia Cholesterol [Mass/Vol] 259 mg/dL Critically high <=200 [facility] Comment on above: Performed By: #### C MP, DLDL, URIC, LIPID #### [facility] [address] [address] [address] Gabriel Garcia Cholesterol in HDL [Mass/Vol] 27 mg/dL Critically low 40-60 [facility] Comment on above: Performed By: #### C MP, DLDL, URIC, LIPID #### [facility] [address] [address] [address] Gabriel Garcia Cholesterol.total/Chol esterol in HDL [Mass ratio] 9.6 {ratio} Normal [facility] Comment on above: Performed By: #### C MP, DLDL, URIC, LIPID #### [facility] [address] [address] [address] Gabriel Garcia HDL NORMAL > or = 60 mg/dl - LOW CARDIOVASCULAR RISK <40 mg/dl - HIGH CARDIOVASCULAR RISK Normal [facility] Comment on above: Performed By: #### C MP, DLDL, URIC, LIPID #### [facility] [address] [address] [address] Gabriel Garcia LDL CALC NORMAL SEE BELOW Normal [facility] Comment on above: Result Comment: <100 mg/dl OPTIMAL 100 - 129 mg/dl NEAR OR ABOVE OPTIMAL 130 - 159 mg/dl BORDERLINE HIGH 160 - 189 mg/dl HIGH >190 mg/dl VERY HIGH Performed By: #### C MP, DLDL, URIC, LIPID #### [facility] [address] [address] [address] Gabriel Garcia Triglyceride [Mass/Vol] 469 mg/dL Critically high <=150 [facility] Comment on above: Performed By: #### C MP, DLDL, URIC, LIPID #### [facility] [address] [address] [address] Gabriel Garcia PROF 14(COMP METB)on 022 Albumin [Mass/Vol] 4.1 g/dL Normal 3.4-5.0 [facility] Comment on above: Performed By: #### C MP, DLDL, URIC, LIPID #### [facility] [address] [address] [address] Gabriel Garcia Albumin/Globulin [Mass ratio] 1.0 {ratio} Normal [facility] Comment on above: Performed By: #### C MP, DLDL, URIC, LIPID #### [facility] [address] [address] [address] Gabriel Garcia ALP [Catalytic activity/Vol] 74 U/L Normal 46-116 [facility] Comment on above: Performed By: #### C MP, DLDL, URIC, LIPID #### [facility] [address] [address] [address] Gabriel Garcia ALT [Catalytic activity/Vol] 37 U/L Normal 16-63 [facility] Comment on above: Performed By: #### C MP, DLDL, URIC, LIPID #### [facility] [address] [address] [address] Gabriel Garcia Anion gap [Moles/Vol] 12.8 mmol/L Normal Th e [facility] Comment on above: Performed By: #### C MP, DLDL, URIC, LIPID #### [facility] [address] [address] [address] Gabriel Garcia AST [Catalytic activity/Vol] 36 U/L Normal 15-37 [facility] Comment on above: Performed By: #### C MP, DLDL, URIC, LIPID #### [facility] [address] [place] [address] Dr. Gabriel Garcia Bilirubin [Mass/Vol] 0.4 mg/dL Normal 0.2-1.0 [facility] Comment on above: Performed By: #### C MP, DLDL, URIC, LIPID #### [facility] [address] [place] [address] Dr. Gabriel Garcia Calcium [Mass/Vol] 9.0 mg/dL Normal 8.5-10.1 [facility] Comment on above: Performed By: #### C MP, DLDL, URIC, LIPID #### [facility] [address] [place] [address] Dr. Gabriel Garcia Chloride [Moles/Vol] 103 mmol/L Normal 98-107 [facility] Comment on above: Performed By: #### C MP, DLDL, URIC, LIPID #### [facility] [address] [place] [address] Dr. Gabriel Garcia CO2 [Moles/Vol] 27.6 mmol/L Normal 21.0-32.0 [facility] Comment on above: Performed By: #### C MP, DLDL, URIC, LIPID #### [facility] [address] [place] [address] Dr. Gabriel Garcia Creatinine [Mass/Vol] 1.01 mg/dL Normal 0.70-1.30 [facility] Comment on above: Performed By: #### C MP, DLDL, URIC, LIPID #### [facility] [address] [place] [address] Dr. Gabriel Garcia EGFR-AF LIBYAN >60 Normal >=60 [facility] Comment on above: Performed By: #### C MP, DLDL, URIC, LIPID #### [facility] [address] [address] [address] Gabriel Garcia EGFR-NON AF LIBYAN >60 Normal >=60 [facility] Comment on above: Performed By: #### C MP, DLDL, URIC, LIPID #### [facility] [address] [address] [address] Gabriel Garcia Globulin (S) [Mass/Vol] 4.0 g/dL Normal [facility] Comment on above: Performed By: #### C MP, DLDL, URIC, LIPID #### [facility] [address] [address] [address] Gabriel Garcia Glucose [Mass/Vol] 94 mg/dL Normal 74-106 [facility] Comment on above: Performed By: #### C MP, DLDL, URIC, LIPID #### [facility] [address] [address] [address] Gabriel Garcia Potassium [Moles/Vol] 4.4 mmol/L Normal 3.5-5.1 [facility] Comment on above: Performed By: #### C MP, DLDL, URIC, LIPID #### [facility] [address] [address] [address] Gabriel Garcia Protein [Mass/Vol] 8.1 g/dL Normal 6.4-8.2 [facility] Comment on above: Performed By: #### C MP, DLDL, URIC, LIPID #### [facility] [address] [address] [address] Gabriel Garcia Sodium [Moles/Vol] 139 mmol/L Normal 136-145 [facility] Comment on above: Performed By: #### C MP, DLDL, URIC, LIPID #### [facility] [address] [address] [address] Gabriel Garcia Urea nitrogen [Mass/Vol] 12.0 mg/dL Normal 7.0-18.0 [facility] Comment on above: Performed By: #### C MP, DLDL, URIC, LIPID #### [facility] [address] [address] [address] Gabriel Garcia Urea nitrogen/Creatinine [Mass ratio] 11.9 mg/mg Normal [facility] Comment on above: Performed By: #### C MP, DLDL, URIC, LIPID #### [facility] [address] [place], [place] [address] Dr. Gabriel Garcia URIC ACID SERUMon 02-24-2022 Urate [Mass/Vol] 4.8 mg/dL Normal 3.5-7.2 [facility] Comment on above: Performed By: #### C MP, DLDL, URIC, LIPID #### [facility] [address] [place], [place] [address] Dr. Gabriel Garcia Encounters Encounter Date Encounter Type Care Provider Facility Start: 08-09-2024 End: 08-09-2024 Telephone encounter Mariana Gilman PHERESIS NURSE Work Phone: [facility] Comment on above: Med Refill Start: 05-24-2024 End: 05-24-2024 Telephone encounter Mariana Gilman PHERESIS NURSE Work Phone: [facility] Start: 04-11-2024 End: 04-11-2024 ambulatory MARIANA GILMAN Not Available Start: 04-06-2024 End: 04-06-2024 ambulatory IRINA H TIMMIS Not Available Start: 03-30-2024 End: 03-30-2024 ambulatory Jordan Wylie Facility:[facility] Start: 03-30-2024 End: 03-30-2024 Patient encounter procedure Irina H Timmis [facility] Start: 03-02-2024 End: 03-02-2024 ambulatory IRINA H TIMMIS Not Available Start: 12-17-2022 End: 12-18-[address] JORDAN WYLIE . Facility:[facility] Start: 02-27-2022 Encounter for genera l adult medical examination without abnormal findings DR JORDAN WYLIE . [facility] Start: 02-24-2022 End: 02-25-[address] JORDAN WYLIE . Facility:[facility] Start: 02-24-2022 End: 02-25-2022 Encounter for general adult medical examination without abnormal findings DR JORDAN WYLIE . Facility:[facility] Start: 02-23-[address] JORDAN WYLIE . Facili ty:[facility] Procedures Date Procedure Procedure Detail Performing Clinician Start: 02-24-[address] MICHAEL WYLIE . Comment on above: Performed By: #### [facility] #### [facility] [address], [place] [address] Dr. Gabriel Garcia Plan of Treatment Date Care Activity Detail Author Start: 10-17-2024 End: 10-17-2024 Patient encounter procedure 10/17/2024 9:40 AM EST [facility] [address] [place] [address] Mariana Gilman NP [address] [place] [place] [facility] Start: 06-05-2024 Influenza vaccination Influenza Vacc ine (#1) [facility] Start: 1975 Screening for malign ant neoplasm of colon [facility] Immunizations Immunization Date Immunization Notes Care Provider Fa cility 08-07-2022 influenza virus vacc ine, unspecified formulation Mariana Gilman NP Work Phone: [facility] Payers Date Payer Category Payer Medicare AETNA MEDICARE A DVANTAGE AETNA MEDICARE REPLACEMENT [id number] 2023-Present [address] [place] [address] [id number] 2019 Medicaid [id number] 1977 Unknown [id number] 1977 Unknown [id number] [id number] 1977 Unknown [id number] 1977 Unknown [id number] 1977 Unknown [id number] 1977 Unknown [id number] [id number] 1977 Unknown [id number] 1977 Unknown [id number] [id number] 1977 Unknown [id number] 1957 Medicaid [id number] 1957 Medicare [id number] Social History Date Type Detail Facility Tobacco smoking status [facility] Start: 04-06-2024 Sex Assigned At Male [facility] Start: 02-04-2024 Tobacco smoking stat [facility] Never smoked tobacco [facility] Start: [...] 300 mg Oxcarbazepine 300 mg Pharmacy is [facility] in [place], [place]. [facility] 08-09-2024 Miscellaneous Notes Formattin g of this note might be different from the original. Patient gwyn called and Luis Fernando needs a refill of - Gabapentin 300 mg Oxcarbazepine 300 mg Pharmacy is [facility] in [place], [place]. documented in this encounter [facility] 05-24-2024 Telephone encount er Note Done [facility] 05-24-2024 Miscellaneous Notes Formattin g of this note might be different from the original. Done MOTHER CALLED IN STATING THAT THE PATIENT NEEDED A REFILL OF GABAPENTIN SENT TO [facility] IN [place] documented in this encounter [facility] 05-24-2024 Telephone encount er Note MOTHER CALLED IN STATING THAT THE PATIENT NEEDED A REFILL OF GABAPENTIN SENT TO [facility] IN [place] [facility] 03-30-2024 Evaluation + Plan note Diagnostic Tests PendingEBV Antibody Profile 03/30/24 [facility] 12-17-2022 Note PROCEDURE: XR FOOT R [...] by: DANGELO WILLIAM Date: 2022-12-17 16:35 [facility] Evaluation + Plan note No data available for this section [facility] Evaluation note Diagnosis Nonintractable epilepsy without status epilepticus, unspecified epilepsy type (CMS/HCC) Seizure disorder (CMS/HCC) Unspecified epilepsy without mention of intractable epilepsy [facility] Nonintractable epilepsy without status epilepticus, unspecified epilepsy type (CMS/HCC) [facility] No data available for this section [facility] No data available for this section [facility] Summary Purpose Family History No Family [...] and content) DATE CREATED AUTHOR 01/02/2023 [facility] DATE CREATED AUTHOR AUTHOR'S ORGANIZ ATION 04/01/2024 [facility] DATE CREATED AUTHOR AUTHOR'S ORGANIZ ATION 04/08/2024 [facility] DATE CREATED AUTHOR AUTHOR'S ORGANIZ ATION 04/11/2024 [facility] EPIC Patient Care team informatio n (unrecognized section and content) Shop Worker Relationship Specialty Start Date End Date Jordan Wylie MD [address] [place] [address] PCP - General Family Medicine 02/03/24 Shop Worker Relationship Specialty Start Date End Date Jordan Wylie MD [address] [place] [address] PCP - General Family Medicine 02/03/24 Reason [...] BE BASED ON THE PRIMARY CLINICAL RECORDS. [facility]. provides no warranty or guarantee of the accuracy or completeness of information in this document.
[2024-11-26 11:16] LABS: Basophils Absolute Auto 0.1 10^3/uL (0.0-0.1); Basophils Percent Auto 1.2 % (0.2-2.0); Eosinophils Absolute Auto 0.4 10^3/uL (0.0-0.7); Eosinophils Percent Auto 7.5 % (0.9-7.0); Hematocrit 43.7 % (42.0-54.0); Hemoglobin 15.2 g/dL (14.0-18.0); Immature Granulocytes Abs Auto 0.03 10^3/uL (0.00-0.03); Immature Granulocytes Pct Auto 0.6 % (0.0-0.5); Lymphocytes Percent Auto 39.6 % (20.5-60.0); Mean Corpuscular HGB Conc 34.8 g/dL (29.9-35.2); Mean Corpuscular Hemoglobin 32.1 pg (25.9-34.0); Mean Corpuscular Volume 92.4 fL (80.0-94.0); Mean Platelet Volume 8.7 fL (9.5-13.5); Monocytes Absolute Auto 0.7 10^3/uL (0.3-0.8); Monocytes Percent Auto 14.2 % (1.7-12.0); Neutrophils Absolute Auto 1.8 10^3/uL (1.4-6.5); Neutrophils Percent Auto 36.9 % (43.0-75.0); Platelet Count 247 10^3/uL (150-450); Red Blood Count 4.73 10^6/uL (4.70-6.10); Red Cell Distribution Width 11.9 % (11.0-15.0); White Blood Count 4.9 10^3/uL (4.0-11.0)
[2024-11-26 11:33] LABS: Alanine Aminotransferase 29 U/L (16-63); Albumin Globulin Ratio 1.1; Albumin Level 4.1 g/dL (3.4-5.0); Alkaline Phosphatase 41 U/L (46-116); Anion Gap 6.9; Aspartate Amino Transferase 22 U/L (15-37); BUN Creatinine Ratio 11.8; Bilirubin Total 0.5 mg/dL (0.2-1.0); Calcium 8.9 mg/dL (8.5-10.1); Carbon Dioxide 30.4 mmol/L (21.0-32.0); Chloride 98 mmol/L (98-107); Chol HDL Ratio 5.7; Cholesterol 241 mg/dL (<=200); Estimated GFR (African America >60 (>=60 mL/min/1.73m^2); Estimated GFR (Non-African Ame >60 (>=60 mL/min/1.73m^2); Free T3 1.26 pg/mL (2.18-3.98); Globulin 3.7 g/dL; Glucose 91 mg/dL (74-106); HDL Cholesterol 42 mg/dL (40-60); Potassium 4.3 mmol/L (3.5-5.1); Prostate Specific Antigen Scrn 0.39 ng/mL (<=4.00); Sodium 131 mmol/L (136-145); Thyroid Stimulating Hormone 1.399 uIU/mL (0.358-3.740); Total Protein 7.8 g/dL (6.4-8.2); Triglycerides 112 mg/dL (<=150); Uric Acid 4.5 mg/dL (3.5-7.2); VLDL CHOLESTEROL 22.4 mg/dL
[2024-11-26 16:56] LABS: Estimated Average Glucose 103 mg/dL; Glycohemoglobin A1C 5.2 % (4.5-6.2)
[2024-11-27 12:07] LABS: Insulin 13.9 uIU/mL (2.6-24.9)
== END 2024-11-26 10:01 | disposition home or self-care (01) ==
LOC: LAB 10:00
PROVIDERS: PCP Family Medicine; Visit Provider Family Medicine
DX: Z00.00 Encounter for general adult medical examination without abnormal findings (principal); M53.86 Other specified dorsopathies, lumbar region; E78.5 Hyperlipidemia, unspecified; R73.09 Other abnormal glucose; E03.9 Hypothyroidism, unspecified; Z12.5 Encounter for screening for malignant neoplasm of prostate; I10 Essential (primary) hypertension
CPT/HCPCS: 36415; 72110; 73502; 80053; 80061; 83036; 83525; 84436; 84443; 84481; 84550; 85025; G0103

== ENCOUNTER 2025-04-12 15:51 | Outpatient (OUT) | payer MEDICARE, MEDICAID, SELFPAY ==
--- OUTSIDE RECORDS SUMMARY | 2025-03-28 06:45 | XMS_ITS ---
Author Organization [facility] in [place] Address [address] [place] [address] Care Team Providers Care Oil Spraying Machine Operator Name Role Phone Jose Tovar Primary Care Provider Allergies No Known Allergies REASON FOR VISIT Right Knee Pain Medications Medication SIG (Take, Route, Frequency, Duration) Notes Start Date End Date Status Pantoprazole Sodium 40 MG TAKE 1 TABLET BY MOUTH EVERY DAY IN THE EVENING for 30 Active Triamcinolone Acetonide 0.1 % 1 application Externally Two times a Week Active Trileptal 600 MG 1 tablet Orally Twic e a day Active tiZANidine HCl 4 MG 2 tabs Orally qhs fo r 30 days 11/16/2024 Active Fenofibrate 145 MG TAKE 1 TABLET BY CORINNA TH EVERY DAY for 90 Active predniSONE 20 MG 3 tablets Orally Onc e a day for 5 days 03/28/2025 Active Fluticasone Propionate 50 MCG/ACT USE 1 SPRAY INTO EACH NOSTRIL TWICE A DAY for 30 Active Gabapentin 300 MG 1 capsule Orally TID Active Cetirizine HCl 10 MG TAKE 1 TABLET (10 M G) BY MOUTH DAILY NEEDED FOR ALLERGIES for 90 Active Diclofenac Sodium 75 MG TAKE 1 TABLET BY MOUTH TWICE A DAY NEEDED FOR 30 DAYS for 30 Active Azelastine HCl 0.05 % 1 drop into affect ed eye Ophthalmic Twice a day 02/26/2024 Active Benzonatate 200 MG 1 capsule Orally Thr ee times a day for 7 days 12/12/2024 Active Social History Tobacco Use: Social History Observation Description Date Details (start date - stop date) Never Smoker NA - NA Tobacco Use/Smoking Question Answer Notes Patient is a nonsmoker Problems Problem Type SNOMED Code ICD Code Onset Dates Problem Status W/U Status Risk Notes Problem Knee pain (M25.569) Active confirmed Vital Signs Weight 198 lbs 03/28/2025 Height 71 in 03/28/2025 Blood pressure systolic 118 mm Hg 03/28/20 25 Blood pressure diastolic 80 mm Hg 025 BMI 27.61 kg/m2 03/28/2025 Encounters Encounter Location Date Provider Diagnosis [facility] [address] [place] [address] 03/28/2025 Jose Hoy Knee pain M25.569 an d Knee pain, right M25.561 Assessments Encounter Date Diagnosis (ICD Code) Assessment Notes Treatment Notes Treatment Clinical Notes Section Notes 03/28/2025 Knee pain (ICD-10 - M25.569) 03/28/2025 Knee pain, right (ICD-10 - M25.561) Plan Of Treatment Medication Medication Name Sig Start Date Stop Date Notes predniSONE 20 MG 3 tablets Orally Once a day for 5 days Progress Notes * Luis Fernando NICOLAS RDOB:1975 ( 49 yo M)Acc No.[id number]:03/28/2025 Progress Note Patient: Luis Fernando LAU Provider: Rex Tovar ([facility])MD :1975 A ge:49 Y S ex:Male Date:03/28/2025 Address[address] [facility] Check In:10:35 AM ESTCheck O ut:11:32 AM EST Subjective: * Chief Complaints: * R ight Knee Pain * HPI: G eneral: R юлия 0 no newe injury - just and knee pain didd occ ice. * Active Problem List H61.21 Impacted cerumen, ri ght ear Modified On:02/20/2023/U Status:confirmed H61.22 Impacted cerumen, le ft ear Modified On:02/20/2023U Status:confirmed H66.90 Otitis media, unspec ified, unspecified ear Modified On:06/29/2023U Status:confirmed J01.41 Acute recurrent pans inusitis Modified On:09/16/2023/U Status:confirmed S80.00XA Contusion of unspeci fied knee, initial encounter Modified On:02/20/2023 Status:confirmed S83.8X2A Sprain of other spec ified parts of left knee, initial encounter Modified On:02/20/2023 Status:confirmed S93.409A Sprain of unspecifie d ligament of unspecified ankle, initial encounter Modified On:02/20/2023 Status:confirmed M79.643 Pain in unspecified hand Modified On:02/20/2023 Status:confirmed M54.9 Back pain Modified On:02/20/2023 Status:confirmed Z00.00 Well adult Modified On:02/20/2023 Status:confirmed R13.10 Dysphagia Modified On:02/20/2023 Status:confirmed J30.2 Seasonal allergic rh initis Modified On:10/26/2023 Status:confirmed M79.671 Foot pain, right Modified On:02/20/2023 Status:confirmed L25.9 Contact dermatitis Modified On:02/20/2023 Status:confirmed Z02.5 Sports physical Modified On:02/20/2023 Status:confirmed R56.9 Seizure Modified On:02/20/2023 Status:confirmed H90.5 Hearing loss, sensor ineural Modified On:03/11/2023 Status:confirmed S60.229A Contusion, hand Modified On:02/20/2023 Status:confirmed M23.91 Internal derangement of right knee Modified On:02/20/2023U Status:confirmed M54.50 Back pain, lumbosacr al Modified On:02/20/2023 Status:confirmed J30.9 Allergic rhinitis Modified On:09/15/2023 Status:confirmed J30.9 Allergic rhinitis, u nspecified Modified On:12/20/2022 Status:confirmed G40.909 Cerebral seizure Modified On:01/16/2023 Status:confirmed G43.909 Migraine without sta tus migrainosus, not intractable, unspecified migraine type Modified On:04/14/2023W/U Status:confirmed F81.9 Cognitive developmen damaris delay Modified On:01/16/2023 Status:confirmed J30.2 Other seasonal aller gic rhinitis Modified On:10/22/2023 Status:confirmed Z91.09 Other allergy status , other than to drugs and biological substances Modified On:01/08/2024 Status:confirmed K59.00 Constipated Modified On:05/13/2023 Status:confirmed M53.86 Low back derangement syndrome Modified On:05/13/2023U Status:confirmed M79.671 Pain in right foot Modified On:05/26/2023 Status:confirmed M21.6X1 Other acquired defor mities of right foot Modified On:07/28/2023 Status:confirmed M25.371 Other instability, r ight ankle Modified On:07/28/2023 Status:confirmed M25.551 Hip pain, acute, rig ht Modified On:09/02/2023U Status:confirmed K21.9 GERD (gastroesophage al reflux disease) Modified On:12/11/2023 Status:confirmed J32.9 Chronic sinusitis Modified On:01/13/2024 Status:confirmed R13.10 Dysphagia, unspecifi ed Modified On:01/13/2024 Status:confirmed J32.9 Chronic sinusitis, u nspecified Modified On:02/01/2024 Status:confirmed R59.1 Lymphadenopathy Modified On:03/28/2024 Status:confirmed J01.90 Acute sinusitis Modified On:06/15/2024U Status:confirmed G43.909 Migraine Modified On:06/21/2024 Status:confirmed Z29.8 Encounter for immuno therapy Modified On:06/29/2024U Status:confirmed M17.10 Knee osteoarthritis Modified On:06/29/2024U Status:confirmed M25.569 Knee pain Modified On:03/28/2025 Status:confirmed * Medical History: * Surgical History: F oot Surgery- Right 2006 * Hospitalization/Major Diagno stic Procedure: s ee above * Family History: F ather: unknown. M other: alive, type II diabetes, diagnosed with Diabetes mellitus without mention of complication, type II or unspecified type, not stated as uncontrolled. B rother(s): alive. 1 brother(s) - healthy. . * Social History: T obacco Use: T obacco Use/Smoking P atient is a n onsmoker * Medications: T akingAzelastine HCl 0.05 % Solution 1 drop into affected eye Ophthalmic Twice a day Benzonatate 200 MG Capsule 1 capsule Orally Three times a day Cetirizine HCl 10 MG Tablet TAKE 1 TABLET (10 MG) BY MOUTH DAILY NEEDED FOR ALLERGIES Diclofenac Sodium 75 MG Tablet Delayed Release TAKE 1 TABLET BY MOUTH TWICE A DAY NEEDED FOR 30 DAYS Fenofibrate 145 MG Tablet TAKE 1 TABLET BY MOUTH EVERY DAY Fluticasone Propionate 50 MCG/ACT Suspension USE 1 SPRAY INTO EACH NOSTRIL TWICE A DAY Gabapentin 300 MG Capsule 1 capsule Orally TID Pantoprazole Sodium 40 MG Tablet Delayed Release TAKE 1 TABLET BY MOUTH EVERY DAY IN THE EVENING tiZANidine HCl 4 MG Tablet 2 tabs Orally qhs Triamcinolone Acetonide 0.1 % Cream 1 application Externally Two times a Week Trileptal(OXcarbazepine) 600 MG Tablet 1 tablet Orally Twice a day Taking Azelastine HCl 0.05 % Solution 1 drop into affected eye Ophthalmic Twice a day Taking Benzonatate 200 MG Capsule 1 capsule Orally Three times a day Taking Cetirizine HCl 10 MG Tablet TAKE 1 TABLET (10 MG) BY MOUTH DAILY NEEDED FOR ALLERGIES Taking Diclofenac Sodium 75 MG Tablet Delayed Release TAKE 1 TABLET BY MOUTH TWICE A DAY NEEDED FOR 30 DAYS Taking Fenofibrate 145 MG Tablet TAKE 1 TABLET BY MOUTH EVERY DAY Taking Fluticasone Propionate 50 MCG/ACT Suspension USE 1 SPRAY INTO EACH NOSTRIL TWICE A DAY Taking Gabapentin 300 MG Capsule 1 capsule Orally TID Taking Pantoprazole Sodium 40 MG Tablet Delayed Release TAKE 1 TABLET BY MOUTH EVERY DAY IN THE EVENING Taking tiZANidine HCl 4 MG Tablet 2 tabs Orally qhs Taking Triamcinolone Acetonide 0.1 % Cream 1 application Externally Two times a Week Taking Trileptal(OXcarbazepine) 600 MG Tablet 1 tablet Orally Twice a day DiscontinuedlevoFLOXacin 750 MG Tablet 1 tablet Orally Once a day predniSONE 20 MG Tablet 2 tablets Orally Once a day Medication List reviewed and reconciled with the patientDiscontinued levoFLOXacin 750 MG Tablet 1 tablet Orally Once a day Discontinued predniSONE 20 MG Tablet 2 tablets Orally Once a day Medication List reviewed and reconciled with the patient * Allergies: N .K.D.A.no[Allergies Verified] Objective: * Vitals: W t:198lbs, Ht: 71 in, BP:118/80mm Hg, BMI:27.61Index, Ht-cm: 180.34 cm, Wt-k.81 kg. * Physical Examination: R knee woith milkd effusio - no laxith and no tendernss. Assessment: * Assessment: 1. K nee pain - M25.569 (Primary) 2 . K nee pain, right - M25.561 ? Plan: * Treatment: * Procedure Codes: * Preventive Medicine: Screenings/Counseling: B MS ACTION PLAN Above Normal BMI Follow-up D ietary management education, guidance, and counseling * * Sign off status: Completed Visit Status: C HK (Check Out) true * Provider: Rex Tovar ([facility])MD Date: 0 03/28/2025 Generated for Bebetoi aleksander/Carrillo/eTransmitting on: 0 04/12/2025 03:59 PM EDT History and Physical Notes * HPI (History of Present Illness) Category Sub-Category Detail Notes Category Not es General R юлия 0 no newe injury - just and knee pain didd occ ice Physical Examination Category Sub-Category Detail Notes Section Note s R knee woith mi lkd effusio - no laxith and no tendernss
--- OUTSIDE RECORDS SUMMARY | 2025-04-05 04:02 | XMS_ITS ---
Author Organization [facility] in [place] Address [address] [place] [address] Care Team Providers Care Executive Producer Promos Name Role Phone Jose Tovar Primary Care Provider REASON FOR VISIT Knee Pain Encounters Encounter Location Date Provider Diagnosis [facility] [address] [place] [address] 04/05/2025 Jose Tovar Knee pain, right M25.561 and Knee pain, left M25.562 Assessments Encounter Date Diagnosis (ICD Code) Assessment Notes Treatment Notes Treatment Clinical Notes Section Notes 04/05/2025 Knee pain, right (ICD-10 - M25.561) 04/05/2025 Knee pain, left (ICD-10 - M25.562) Plan Of Treatment Pending Test Test Name Order Date XR knee SUHA 3V 04/05/2025 Progress Notes * Luis Fernando RDOB:1975 ( 49 yo M)Acc No.[id number]:04/05/2025 Patient: Luis Fernando LAU :1975 A ge:49 Y S ex:Male Address:[address] [place], [address] Subjective: * Chief Complaints: * K nee Pain * Medical History: * Surgical History: * Hospitalization/Major Diagno stic Procedure: * Medications: Objective: * Vitals: * Physical Examination: Assessment: * Assessment: 1. K nee pain, right - M25.561 (Primary) 2 . K nee pain, left - M25.562? Plan: * Treatment: 2. K nee pain, left I maging: XR knee SUHA 3V * Procedure Codes: * true * Date: Generated for Margo armijo/Carrillo/Laila on: 0 04/12/2025 03:59 PM EDT
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
--- OUTSIDE RECORDS SUMMARY | 2025-04-12 15:59 | XMS_ITS | Patient Health Record ---
Author Organization [facility] in [place] Address [address] [place] [address] Care Team Providers Care [facility] Nurse Practitioner Name Role Phone Jose Wylie Primary Care Provider JORDAN WYLIE Unavailable [phone] Allergies No Known Allergies Results Component Value Reference Range Notes GLYCOHEMOGLOBIN A1C Reviewed date:11/27/2024 09:16:11 AM Interpretation: Performing Lab: Notes/Report: [facility] , Glycohemoglobin A1C 5.2 4.5-6.2 % ADA THERAPEUTIC TARGET < 7.0 ADA RECOMMENDED LIMIT 4.0 - 6.0 > 7.0 ACTION SUGGESTED Estimated Average Glucose 103 Performing Lab: see note ML - [facility] LB INSULIN Reviewed date:11/27/2024 12:34:17 PM Interpretation: Performing Lab: Notes/Report: [facility] , Insulin 13.9 2.6-24.9 uIU/mL [address] [place], [place] [id number] Photovoltaic Testing Technician: Wade Cherry PhD, Phone: [phone] Performed at: - [facility] Performing Lab: see note LC - [facility] LB XR hip RT 2V w/ pelvis Reviewed date:11/27/2024 09:16:11 AM Interpretation: Performing Lab: Notes/Report: Source Facility: [facility]-[address] [place] [address] [place] [address] XRay Report Signed Patient: KJ NICOLAS MR#: [id number] : 1975 Acct:[id number] Age/Sex: 49 / M ADM Date: 11/26/24 Loc: LAB Attending Dr: Jordan Wylie M.D. Ordering Physician: Jordan Wylie M.D. Date of Service: 11/26/24 Procedure(s): XR hip RT 2V w/ pelvis Accession Number(s): [id number] cc: Jordan Wylie M.D. [place] [id number] Patient Name: KJ NICOLAS MRN: [id number] date: 1975 Sex: M Assigned Patient Location: LAB Current Patient Location: LAB Accession/Order Number: [id number] Exam Date: 11/26/2024 10:36 Report Date: 11/26/2024 10:38 At the request of: JORDAN WYLIE MD Procedure: XR hip RT 2V w/ pelvis XR hip RT 2V w/ pelvis 11/26/2024 10:29 AM SIGNS AND SYMPTOMS: Back and hip pain after fall PROTOCOL: Frontal radiograph of the pelvis with frontal and frog-leg views of the right hip COMPARISON: 08/26/2023 FINDINGS: The bony ring of the pelvis is intact. The joint spaces of the hips are preserved. There is no fracture or dislocation. Vascular calcifications are present in the pelvis. XR/XR hip RT 2V w/ pelvis IMPRESSION: No evidence of fracture. No significant degenerative change. Impression dictated by: Isael Amaro M.D.11/26/2024 10:38 AM Dictation Location: [place] [address] Electronically authenticated by: [id number] Y Date: 11/26/2024 10:38 Dictated By: Isael Amaro M.D. Signed By: 11/26/24 1040 DD/ 1038 TD/TT: Paper Control Clerk: [place] [address] XRay Report Signed Patient: KJ NICOLAS MR#: [id number] : 1975 Acct:[id number] Age/Sex: 49 / M ADM Date: 11/26/24 Loc: LAB Attending Dr: Brigitte Wylie M.D. Ordering Physician: Jordan Wylie M.D. Date of Service: 11/26/24 Procedure(s): XR hip RT 2V w/ pelvis Accession Number(s): [id number] cc: Jordan Wylie M.D. [place] [id number] Patient Name: KJ NICOLAS MRN: [id number] date: 1975 Sex: M Assigned Patient Location: LAB Current Patient Location: LAB Accession/Order Number: [id number] Exam Date: 11/26/2024 10:36 Report Date: 11/26/2024 10:38 At the request of: JORDAN WYLIE MD Procedure: XR hip RT 2V w/ pelvis XR hip RT 2V w/ pelv is 11/26/2024 10:29 AM SIGNS AND SYMPTOMS: Back and hip pain after fall PROTOCOL: Frontal radiograph of the pelvis with frontal and frog-leg views of the right hip COMPARISON: 08/26/2023 FINDINGS: The bony ring of the pelvis is intact. The joint spaces of the hips are preserved. There is no fracture or dislocation. Vascular calcifications are present in the pelvis. XR/XR hip RT 2V w/ pelvis IMPRESSION: No evidence of fracture. No significant degenerative change. Impression dictated by: Isael Amaro M.D.11/26/2024 10:38 AM Dictation Location: [place] [address] Electronically authenticated by: [id number] Y Date: 11/26/2024 10:38 Dictated By: Isael Amaro M.D. Signed By: 11/26/24 1040 DD/ 1038 TD/TT: Paper Control Clerk: XR lumbar spine min 4V Reviewed date:11/27/2024 09:16:11 AM Interpretation: Performing Lab: Notes/Report: Source Facility: [place] [address] XRay Report Signed Patient: KJ NICOLAS MR#: [id number] : 1975 Acct:[id number] Age/Sex: 49 / M ADM Date: 11/26/24 Loc: LAB Attending Dr: Jordan Wylie M.D. Ordering Physician: Jordan Wylie M.D. Date of Service: 11/26/24 Procedure(s): XR lumbar spine min 4V Accession Number(s): [id number] cc: Jordan Wylie M.D. [place] [address] Patient Name: KJ NICOLAS MRN: [facility]:[id number] date: 1975 Sex: M Assigned Patient Location: LAB Current Patient Location: LAB Accession/Order Number: [id number] Exam Date: 11/26/2024 10:33 Report Date: 11/26/2024 10:36 At the request of: JORDAN WYLIE MD Procedure: XR lumbar spine min 4V XR lumbar spine min 4V 11/26/2024 10:29 AM SIGNS AND SYMPTOMS: Fall, back pain and hip pain PROTOCOLS: Frontal, lateral, and oblique radiographs of the lumbar spine COMPARISON: 04/15/2023 FINDINGS: The alignment, development and bony structures are normal. There is no fracture or destructive lesion. Mild disc height loss is noted at L5-S1. There is endplate irregularity with Schmorl's information at the superior endplate of L2 and L3 which is unchanged. The sacrum and sacroiliac joints are normal. XR/XR lumbar spine min 4V IMPRESSION: No acute displaced fracture. Mild disc height loss is noted at L5-S1. There is endplate irregularity with Schmorl's information at the superior endplate of L2 and L3 which is unchanged. Impression dictated by: Isael Amaro M.D.11/26/2024 10:36 AM Dictation Location: [place] [address] Electronically authenticated by: [id number] Y Date: 11/26/2024 10:36 Dictated By: Isael Amaro M.D. Signed By: 11/26/24 1039 DD/ 1036 TD/TT: Paper Control Clerk: [place] [address] XRay Report Signed Patient: KJ NICOLAS MR#: [id number] : 1975 Acct:[id number] Age/Sex: 49 / M ADM Date: 11/26/24 Loc: LAB Attending Dr: Brigitte Wylie M.D. Ordering Physician: Jordan Wylie M.D. Date of Service: 11/26/24 Procedure(s): XR lumbar spine min 4V Accession Number(s): [id number] cc: Jordan Wylie M.D. [place] [address] Patient Name: KJ NICOLAS MRN: [facility]:[id number] date: 1975 Sex: M Assigned Patient Location: LAB Current Patient Location: LAB Accession/Order Number: [id number] Exam Date: 11/26/2024 10:33 Report Date: 11/26/2024 10:36 At the request of: JORDAN WYLIE MD Procedure: XR lumbar spine min 4V XR lumbar spine min 4V 11/26/2024 10:29 AM SIGNS AND SYMPTOMS: Fall, back pain and hip pain PROTOCOLS: Frontal, lateral, and oblique radiographs of the lumbar spine COMPARISON: 04/15/2023 FINDINGS: The alignment, development and bony structures are normal. There is no fracture or destructive lesion. Mild disc height los s is noted at L5-S1. There is endplate irregularity with Schmorl's informatio n at the superior endplate of L2 and L3 which is unchanged. The sacrum and sacroiliac joints are normal. XR/XR lumbar spine min 4V IMPRESSION: No acute displaced fracture. Mild disc height los s is noted at L5-S1. There is endplate irregularity with Schmorl's information at the superior endplate of L2 and L 3 which is unchanged. Impression dictated by: Isael Amaro M.D.11/26/2024 10:36 AM Dictation Location: [place] [address] Electronically authenticated by: [id number] Y Date: 11/26/2024 10:36 Dictated By: Isael Amaro M.D. Signed By: 11/26/24 1039 DD/ 1036 TD/TT: Paper Control Clerk: URIC ACID SERUM Reviewed date:11/27/2024 09:16:11 AM Interpretation: Performing Lab: Notes/Report: [facility] , Uric Acid 4.5 3.5-7.2 mg/dL Performing Lab: see note ML - [facility] LB TSH Reviewed date:11/27/2024 09:16:11 AM Interpretation: Performing Lab: Notes/Report: [facility] , Thyroid Stimulating Hormone 1.399 0.358-3.740 uIU/mL Performing Lab: see note ML - [facility] LB T4 Reviewed date:11/27/2024 09:16:11 AM Interpretation: Performing Lab: Notes/Report: [facility] , T4 Thyroxine 6.30 4.50-12.10 ug/dL Performing Lab: see note ML - [facility] LB PSA SCREENING Reviewed date:11/27/2024 09:16:11 AM Interpretation: Performing Lab: Notes/Report: [facility] , Prostate Specific Antigen Scrn 0.39 <=4.00 ng/mL Performing Lab: see note ML - [facility] LB PROF 14(COMP METB) Reviewed date:11/27/2024 09:16:11 AM Interpretation: Performing Lab: Notes/Report: [facility] , Sodium 131 136-145 mmol/L Potassium 4.3 3.5-5.1 mmol/L Chloride 98 98-107 mmol/L Carbon Dioxide 30.4 21.0-32.0 mmol/L Anion Gap 6.9 Glucose 91 74-106 mg/dL Blood Urea Nitrogen 14.0 7.0-18.0 mg/dL Creatinine 1.19 0.70-1.30 mg/dL Estimated GFR ( Denise >60 >=60 mL/min/1.73m 2 Estimated GFR (Non- Criss >60 >=60 mL/min/1.73m 2 BUN Creatinine Ratio 11.8 Calcium 8.9 8.5-10.1 mg/dL Bilirubin Total 0.5 0.2-1.0 mg/dL Aspartate Amino Transferase 22 15-37 U/L Alanine Aminotransferase 29 16-63 U/L Alkaline Phosphatase 41 46-116 U/L Total Protein 7.8 6.4-8.2 g/dL Albumin Level 4.1 3.4-5.0 g/dL Globulin 3.7 Albumin Globulin Ratio 1.1 Performing Lab: see note ML - [facility] LB LIPID PROFILE Reviewed date:11/27/2024 09:16:11 AM Interpretation: Performing Lab: Notes/Report: [facility] , Triglycerides 112 <=150 mg/dL Cholesterol 241 <=200 mg/dL HDL Cholesterol 42 40-60 mg/dL <40 mg/dl - HIGH CARDIOVASCULAR RISK > or =60 mg/dl - LOW CARDIOVASCULAR RISK LDL Cholesterol Calculated 177.0 130-159 mg/dl BORDERLINE HIGH 100-129 mg/dl NEAR OR ABOVE OPTIMAL >190 mg/dl VERY HIGH <100 mg/dl OPTIMAL 160-189 mg/dl HIGH VLDL CHOLESTEROL 22.4 Chol HDL Ratio 5.7 >11.0 HIGH RISK 3.3 - 4.4 LOW RISK 4.4 - 7.1 AVERAGE RISK 7.1 - 11.0 MODERATE RISK Performing Lab: see note ML - [facility] LB FREE T3 Reviewed date:11/27/2024 09:16:11 AM Interpretation: Performing Lab: Notes/Report: [facility] , Free T3 1.26 2.18-3.98 pg/mL Performing Lab: see note ML - [facility] LB CBC AUTO DIFF Reviewed date:11/27/2024 09:16:11 AM Interpretation: Performing Lab: Notes/Report: [facility] , White Blood Count 4.9 4.0-11.0 10 3/uL Red Blood Count 4.73 4.70-6.10 10 6/uL Hemoglobin 15.2 14.0-18.0 g/dL Hematocrit 43.7 42.0-54.0 % Mean Corpuscular Volume 92.4 80.0-94.0 fL Mean Corpuscular Hemoglobin 32.1 25.9-34.0 pg Mean Corpuscular HGB Conc 34.8 29.9-35.2 g/dL Red Cell Distribution Width 11.9 11.0-15.0 % Platelet Count 247 150-450 10 3/uL Mean Platelet Volume 8.7 9.5-13.5 fL Neutrophils Percent Auto 36.9 43.0-75.0 % Lymphocytes Percent Auto 39.6 20.5-60.0 % Monocytes Percent Auto 14.2 1.7-12.0 % Eosinophils Percent Auto 7.5 0.9-7.0 % Basophils Percent Auto 1.2 0.2-2.0 % Immature Granulocytes Pct Auto 0.6 0.0-0.5 % Neutrophils Absolute Auto 1.8 1.4-6.5 10 3/uL Lymphocytes Absolute Auto 2.0 1.2-3.8 10 3/uL Monocytes Absolute Auto 0.7 0.3-0.8 10 3/uL Eosinophils Absolute Auto 0.4 0.0-0.7 10 3/uL Basophils Absolute Auto 0.1 0.0-0.1 10 3/uL Immature Granulocytes Abs Auto 0.03 0.00-0.03 10 3/uL Performing Lab: see note ML - [facility] CT head/brain wo con Reviewed date:07/28/2024 06:57:32 PM Interpretation: Performing Lab: Notes/Report: Source Facility: [place] [address] CT Scan Report Signed Patient: KJ NICOLAS MR#: [id number] : 1975 Acct:[id number] Age/Sex: 48 / M ADM Date: 07/28/24 Loc: CT Attending Dr: Jordan Wylie M.D. Ordering Physician: Jordan Wylie M.D. Date of Service: 07/28/24 Procedure(s): CT head/brain wo con Accession Number(s): [id number] cc: Jordan Wylie M.D. [place] [address] Patient Name: KJ NICOLAS MRN: [id number] date: 1975 Sex: M Assigned Patient Location: CT Current Patient Location: CT Accession/Order Number: [id number] Exam Date: 07/28/2024 12:54 Report Date: 07/28/2024 18:44 At the request of: JORDAN WYLIE Procedure: CT head/brain wo con EXAM: CT head/brain wo con HISTORY: migraine G43.909 COMPARISON: None. TECHNIQUE: Axial CT scans through the head were obtained without IV contrast administration. Dose reduction techniques were achieved by using: automated exposure control and/or adjustment of mA and /or kV according to patient size and/or use of iterative reconstruction technique. FINDINGS: There is no acute intracranial hemorrhage or abnormal extra-axial fluid collection. No mass effect or midline shift is seen. There is no evidence of large acute territorial infarction. There is no hydrocephalus. To the limit of CT, the posterior fossa appears unremarkable. The calvaria and extra cranial soft tissues are unremarkable. The visualized orbits show no abnormality. The visualized paranasal sinuses show no air-fluid level. There are minimal mastoid effusion bilaterally. There are cerumen within bilateral external auditory canals. CT/CT head/brain wo con IMPRESSION: No acute intracranial process. Bilateral mild mastoid effusion. Electronically authenticated by: DANA SEGAL Date: 07/28/2024 18:44 Dictated By: DANA SEGAL M.D. Signed By: 07/28/241845 DD/ 43 TD/TT: Paper Control Clerk: [place] [address] CT Scan Report Signed Patient: KJ NICOLAS MR#: [id number] : 1975 Acct:[id number] Age/Sex: 48 / M ADM Date: 07/28/24 Loc: CT Attending Dr: Brigitte Wylie M.D. Ordering Physician: Jordan Wylie M.D. Date of Service: 07/28/24 Procedure(s): CT head/brain wo con Accession Number(s): [id number] cc: Jordan Wylie M.D. [place] [address] Patient Name: KJ NICOLAS MRN: [id number] date: 1975 Sex: M Assigned Patient Location: CT Current Patient Location: CT Accession/Order Number: [id number] Exam Date: 12:54 Report Date: 07/28/2024 18:44 At the request of: OJRDAN WYLIE Procedure: CT head/brain wo con EXAM: CT head/brain wo con HISTORY: migraine G43.909 COMPARISON: None. TECHNIQUE: Axial CT scans through the head were obtained without IV contrast administration. Dose reduction techniques were achieved by using: automated exposure control and/or adjustment of mA and /or kV according to patient size and/or use of iterative reconstruction technique. FINDINGS: There is no acute intracranial hemorrhage or abnormal extra-axial fluid collection. No mass effect or midline shift is seen. There is no evidence of large acute territorial infarction. There is no hydrocephalus. To the limit of CT, the posterior fossa appears unremarkable. The calvaria and ext ra cranial soft tissues are unremarkable. The visualized orbits show no abnormality. The visualized paranasal sinuses show no air-fluid level. There are minimal mastoid effusion bilaterally. There are cerumen within bilateral external auditory canals. CT/CT head/brain wo con IMPRESSION: No acute intracrania l process. Bilateral mild masto id effusion. Electronically authenticated by: DANA SEGAL Date: 07/28/2024 18:44 Dictated By: LAURENCE SEGAL M.D. Signed By: 07/28/241845 DD/ 43 TD/TT: Paper Control Clerk: Reason For Referral Diagnosis 1 Nevus (D22.9) Referral Organization [facility] Referring Provider First Name Jose Referring Provider Last Name La Referring Provider Speciality Family [facility] mehrdad Referred Provider Kirby Li Referred Provider Specialty Ophthalmolog y Referral Priority Routine Medications Medication SIG (Take, Route, Frequency, Duration) Notes Start Date End Date Status Virasal 27.5 % 1 application as nee ded Externally Once a day 04/12/2025 Active Fluticasone Propionate 50 MCG/ACT USE 1 [...] DAILY NEEDED FOR ALLERGIES for 90 Active Benzonatate 200 MG 1 capsule Orally Thr ee times a day for 7 days 12/12/2024 Active Azelastine HCl 0.05 % 1 drop into affect ed eye Ophthalmic Twice a day 02/26/2024 Active Trileptal 600 MG 1 tablet Orally [...] 300 MG 1 capsule Orally TID Active Immunizations Vaccine Route Administration Date Status Comme nts Flu, Flucelvax (5468-0714) (58935) 6 mos +, single-dose syringe IM Intramuscular 07/27/2023 Administered Flu, Flucelvax (30969) 6 mos and older, single-dose syringe IM Intramuscular 07/13/2024 Partially Administered Social History Tobacco Use: Social History Observation Description Date Details (start date - stop date) Never Smoker NA - NA Tobacco Use/Smoking Question Answer Notes Patient is a nonsmoker Problems Problem Type SNOMED Code ICD Code Onset Dates Problem Status W/U Status Risk Notes Problem Impacted cerumen (39076187) Impacted cerumen, right ear (H61.21) Active confirmed Problem Impacted cerumen (40174566) Impacted cerumen, left ear (H61.22) Active confirmed Problem Otitis media (43910376) Otitis media, unspecified, unspecified ear (H66.90) Active confirmed Problem Recurrent acute sinusitis (829203568) Acute recurrent pansinusitis (J01.41) Active confirmed Problem 940863736 Other seasonal allergic rhinitis (J30.2) Active confirmed Problem Allergic rhinitis (66475411) Allergic rhinitis, unspecified (J30.9) Active confirmed Problem 65671252 Chronic sinusiti s, unspecified (J32.9) Active confirmed Problem 6386306665046895 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) Active confirmed Problem 8426646300787769 Other instabili ty, 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) Active confirmed Problem Hand pain (31254989) Pain in unspecified hand (M79.643) Active confirmed Problem 412108733085994 Pain in right fo ot (M79.671) Active confirmed Problem 25528101 Dysphagia, unspecified (R13.10) Active confirmed Problem Contusion of knee (43843395) Contusion of unspecified knee, initial encounter (S80.00XA) Active confirmed Problem Sprain of left knee (33915800431154182) Sprain of other specified parts of left knee, initial encounter (S83.8X2A) Active confirmed Problem Sprain of ankle (04818861) Sprain of unspecified ligament of unspecified ankle, initial encounter (S93.409A) Active confirmed Problem Other allergy status, other than to drugs and biological substances (Z91.09) Active confirmed Problem Wart (66274580) Wart (B07.9) Active confirmed Problem Gastroesophageal reflux disease (621707512) GERD (gastroesophageal reflux disease) (K21.9) Active confirmed Problem Knee pain (4263226442) Knee pain (M25.569) Active confirmed Problem Migraine (83870743) Migraine (G43.909) Active c onfirmed Problem Back pain (318053140) Back pain (M54.9) Active confirmed Problem 74210192 Migraine without status migrainosus, not intractable, unspecified migraine type (G43.909) Active confirmed Problem Acute sinusitis (72426963) Acute sinusitis (J01.90) Active confirmed Problem Allergic rhinitis (32069054) Allergic rhinitis (J30.9) Active confirmed Problem Chronic sinusitis (79659142) Chronic sinusitis (J32.9) Active confirmed Problem Well adult (009822831) Well adult (Z00.00) Active confirmed Problem Dysphagia (28782867) Dysphagia (R13.10) Active confirmed Problem Lymphadenopathy (17403467) Lymphadenopathy (R59.1) Active confirmed Problem Seasonal allergic rhinitis (321420966) Seasonal allergic rhinitis (J30.2) Active confirmed Problem Pain in limb (26888143) Foot pain, right (M79.671) Active confirmed Problem Contact dermatitis (96566367) Contact dermatitis (L25.9) Active confirmed Problem Constipated (98699336) Constipated (K59.00) Active confirmed Problem Internal derangement of right knee (51745491244767965) Internal derangement of right knee (M23.91) Active confirmed Problem 155557448 Cognitive developmental delay (F81.9) Active confirmed Problem History and physical examination, sports participation (482710358) Sports physical (Z02.5) Active confirmed Problem Seizure (03281003) Seizure (R56.9) Active confi rmed Problem Sensorineural hearing loss (82282057) Hearing loss, sensorineural (H90.5) Active confirmed Problem Contusion of hand (1280427) Contusion, hand (S60.229A) Active confirmed Problem Arthralgia of the pelvic region and thigh (365429321) Hip pain, acute, right (M25.551) Active confirmed Problem Disorder of sacrum (05194858) Low back derangement syndrome (M53.86) Active confirmed Problem Osteoarthritis of knee (210279168) Knee osteoarthritis (M17.10) Active confirmed Problem 147375416 Encounter for immunotherapy (Z29.8) Active confirmed Problem 622003366 Cerebral seizure (G40.909) Active confirmed Problem Low back pain (finding) (750199387) Back pain, lumbosacral (M54.50) Active confirmed Vital Signs Temperature 97.3 degrees Fahrenheit 12/12/2024 Blood pressure diastolic 70 mm Hg 04/12/2025 Height 71 in 04/12/2025 Blood pressure systolic 120 mm Hg 04/12/2025 Weight 192 lbs 04/12/2025 BMI 26.78 kg/m2 04/12/2025 Encounters Encounter Location Date Provider Diagnosis [place] [address] [place] [address] 03/28/2025 Jose Hoy Knee pain M25.569 an d Knee pain, right M25.561 [facility] [address] [place] [address] 06/15/2024 Jose Hoy Acute sinusitis J01. 90 and Encounter for other specified prophylactic measures Z29.89 [facility] [address] [place] [address] 06/29/2024 Jose Hoy Knee osteoarthritis M17.10 and Encounter for other specified prophylactic measures Z29.89 [facility] [address] [place] [address] 04/12/2025 Jose Hoy Encounter for immunotherapy Z29.8 and Wart B07.9 [facility] [address] [place] [address] 11/03/2024 Jose Hoy Acute bronchiolitis J21.9 ; Cerebral seizure G40.909 and Encounter for other specified prophylactic measures Z29.89 [facility] [address] [place] [address] 11/16/2024 Jose Hoy Encounter for immunotherapy Z29.8 ; Low back derangement syndrome M53.86 and Well adult Z00.00 [facility] [address] [place] [address] 03/09/2025 Jose Hoy Other allergy status , other than to drugs and biological substances Z91.09 and Encounter for other specified prophylactic measures Z29.89 [facility] [address] [place] [address] 03/24/2025 Jose Hoy Seasonal allergic rhinitis J30.2 and Encounter for other specified prophylactic measures Z29.89 [facility] [address] [place] [place] [address] 07/13/2024 Jose Hoy Encounter for immunization Z23 and Encounter for other specified prophylactic measures Z29.89 [facility] [address] [place] [place] [address] 11/28/2024 Jose Hoy Other allergy status , other than to drugs and biological substances Z91.09 and Encounter for other specified prophylactic measures Z29.89 [facility] [address] [place] [address] 12/28/2024 JORDAN HOY Allergic rhinitis J3 0.9 ; Seasonal allergic rhinitis J30.2 and Encounter for other specified prophylactic measures Z29.89 [facility] [address] [place] [address] 01/09/2025 Jose Hoy Seasonal allergic rhinitis J30.2 and Encounter for other specified prophylactic measures Z29.89 [facility] [address] [place] [address] 02/01/2025 Jose Hoy Seasonal allergic rhinitis J30.2 and Encounter for other specified prophylactic measures Z29.89 [facility] [address] [place] [place] [address] 02/24/2025 Jose Hoy Encounter for immunotherapy Z29.8 [facility] [address] [place] [address] 08/04/2024 Jose Hoy Allergic rhinitis, unspecified J30.9 and Encounter for other specified prophylactic measures Z29.89 [facility] [address] [place] [place] [address] 08/22/2024 Jose Hoy Other seasonal aller gic rhinitis J30.2 and Encounter for other specified prophylactic measures Z29.89 [facility] [address] [place] [place] [address] 09/08/2024 Jose Hoy Allergic rhinitis J3 0.9 and Encounter for immunotherapy Z29.8 [facility] [address] [place] [place] [address] 09/19/2024 Jose Hoy Chronic sinusitis, unspecified J32.9 and Encounter for other specified prophylactic measures Z29.89 [facility] [address] [place] [place] [address] 10/06/2024 Jose Hoy Seasonal allergic rhinitis J30.2 and Encounter for other specified prophylactic measures Z29.89 [facility] [address] [place] [place] [address] 10/19/2024 Jose Hoy Other allergy status , other than to drugs and biological substances Z91.09 and Encounter for other specified prophylactic measures Z29.89 [facility] [address] [place] [address] 04/20/2024 Jose Hoy Encounter for other specified prophylactic measures Z29.89 [facility] [address] [place] [place] [address] 05/05/2024 Jose Hoy Encounter for other specified prophylactic measures Z29.89 [facility] [address] [place] [facility] [place] [address] 05/19/2024 Jose Hoy Seasonal allergic rhinitis J30.2 and Encounter for other specified prophylactic measures Z29.89 [facility] [address] [place] [facility] [place] [address] 06/01/2024 Jose Hoy Encounter for other specified prophylactic measures Z29.89 [facility] [address] [place] [facility] [place] [address] 12/12/2024 Jose Hoy Encounter for other specified prophylactic measures Z29.89 and Acute bronchitis, unspecified organism J20.9 [facility] [address] [place] [facility] [place] [address] 06/08/2024 Jose Hoy [facility] [address] [place] [address] 06/15/2024 Jose Hoy Nevus D22.9 [facility] [address] [place] [address]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
--- OUTSIDE RECORDS SUMMARY | 2025-04-12 16:00 | XMS_ITS | Encounter Summary ---
Author Organization [facility] Address [address] [place] [address] Care Team Providers Care Transcribing Operators Supervisor Name Role Phone Bertrand Tovar MD Primary Care Provider [phone] Jennifer Miller DO Unavailable [phone] Shoshana Diaz AIRCRAFT CAPTAIN Unavailable [phone] Encounter Details Date Type Department Care Team (Late st Contact Info) Description 03/30/2024 Clinisync Result Encounter [facility] Unsolicited Irina Vega MD [address] [address] Social History Tobacco Use Types Packs/Day Years Used Date Smoking Tobacco: Never Smokeless Tobacco: Never Alcohol Use Standard Drinks/Week Comments Never 0 (1 standard drink = 0.6 oz pur e alcohol) Sex and Gender Information Value Date Recorded Sex Assigned at Not on file Legal Sex Male 7:17 PM EDT Gender Identity Not on file Sexual Orientation Not on file documented as of this encounter Plan of Treatment Not on file documented as of this encounter Procedures Procedure Name Priority Date/Time Associated Diagnosis Comments CT MAXILLOFACIAL W/O CONTRAST 03/30/2024 2:13 PM EDT documented in this encounter Results * CT MAXILLOFACIAL W/O CONTRAST (03/30/2024 2:13 PM EDT) Anatomical Region Laterality Modality Other 03/30/2024 2:13 PM EDT Narrative 03/31/2024 9:47 AM EDT Exam Date/Time: 03/30/2024 14:30 EDT Reason for Exam: J32.4 Report IMPRESSION: NO RADIOGRAPHIC FINDINGS TO SUGGEST ACUTE OR CHRONIC SINUSITIS CLINICAL HISTORY: J32.4 facial pressure COMPARISON: NONE. FINDINGS: Within the curaq-to-ruxp the ventricles are of normal size configuration. [...] Manoj Brown Transcribed by: RIGO Technologist: ANGIE Procedure Note Radiology, Radiologist, MD - 03/31/2024 Exam Date/Time: 03/30/2024 14:30 EDT Reason for Exam: J32.4 Report IMPRESSION: NO RADIOGRAPHIC FINDINGS TO SUGGEST ACUTE OR CHRONICSINUSITIS CLINICAL HISTORY: J32.4 facial pressure COMPARISON: NONE. FINDINGS: Within the mnzhn-xn-eezi the ventricles are of normal size configuration.No mass. No midline shift. The cisterns are patent. No acute intra or extra 5. Both globes are intact. No gross preseptal or postseptal findings. The frontal sinuses, anterior posterior ethmoids, sphenoid and maxillarysinuses are well aerated. No significant mucosal thickening no retention cyst and/orpolyps. The mastoids are well aerated. The ostiomeatal units are patent. No significant sclerotic changes are hyperostosis seen within thevisualized paranasal sinuses. Mild Deviation nasal septum to the right with small nasal spur All CT scans at this facility use dose modulation, iterativereconstruction, and/or weight based dosing when appropriate to reduce radiation dose to as lowas reasonably achievable. Ordering Provider: rIina Vega FINAL REPORT Dictated: 03/31/2024 9:44 am Manoj Brown Signed (Electronic Signature): 03/31/2024 9:44 am Signed by: Manoj Brown Transcribed by: RIGO Technologist: ANGIE Irina Vega MD [facility] Final Resul t documented in this encounter Visit Diagnoses Not on filedocumented in this encounter Care Teams Transcribing Operators Supervisor Relationship Specialty Start Date End Date Bertrand Tovar MD PCP - General Family Medicine 02/03/24 Jennifer Miller DO [address] [place] [address] Referring Physician Neurology 10/18/24 Shoshana Diaz NP [address] [place] [address] Nurse Practitioner Neurology 10/18/24 documented as of this encounter
--- NOTE | 2025-04-12 16:02 | XR_ITS ---
[facility] [place] [id number] Patient Name: KJ NICOLAS MRN: [id number] date: 1975 Sex: M Assigned Patient Location: [facility] Current Patient Location: [facility] Accession/Order Number: [id number] Exam Date: 04/12/2025 16:29 Report Date: 04/12/2025 16:30 At the request of: JORDAN WYLIE MD Procedure: XR knee SUHA 3V 3 views both knees HISTORY: Bilateral anterior knee pain. No joint effusion, bony malalignment or acute displaced fracture. No significant degeneration or soft tissue abnormality. XR/XR knee SUHA 3V IMPRESSION: Unremarkable exam Impression dictated by: Manoj Teran M.D. 04/12/2025 4:30 PM Dictation Location: [place] [address] Electronically authenticated by: [id number] Y Date: 04/12/2025 16:30
== END 2025-04-12 15:52 | disposition home or self-care (01) ==
PROVIDERS: PCP Family Medicine; Visit Provider Family Medicine
DX: M25.561 Pain in right knee (principal); M25.562 Pain in left knee
CPT/HCPCS: 73562

== ENCOUNTER 2025-05-04 14:43 | Outpatient (OUT) | payer MEDICARE, MEDICAID, SELFPAY ==
--- OUTSIDE RECORDS SUMMARY | 2025-04-26 07:00 | XMS_ITS ---
Author Organization [facility] [place] Address [address] [place] [address] Care Team Providers Care Service Line Coordinator Name Role Phone Jose Tovar Primary Care Provider REASON FOR VISIT allergy shots Encounters Encounter Location Date Provider Diagnosis [facility] [address] [place] [address] 04/26/2025 Jose Tovar Encounter for other specified prophylactic measures Z29.89 Assessments Encounter Date Diagnosis (ICD Code) Assessment Notes Treatment Notes Treatment Clinical Notes Section Notes 04/26/2025 Encounter for other specified prophylactic measures (ICD-10 - Z29.89) Plan Of Treatment No Information Procedure Notes * Category Sub-Category Detail Notes Allergy Allergy Shot Administered Vial A Allergy: Non Specifi ed Formulation: RED (1:1), Expires: 08/15/2025, Arm: Left Arm Vial B Formulation: RED (1: 1), Allergies: Not Specified Expires: 08/15/2025, Arm: Right Arm Progress Notes * LuisF ernando NICOLAS RDOB:1975 ( 49 yo M)Acc No.[id number]:04/26/2025 Progress Note Patient: Luis Fernando LAU Provider: Rex Tovar ([facility])MD :1975 A ge:49 Y S ex:Male Date:04/26/2025 Address:[address] [facility] Check In:11:03 AM ESTCheck O ut:11:29 AM EST Subjective: * Chief Complaints: * A llergy shots * HPI: G eneral: Patient presents today for allergy injection. * Active Problem List H61.21 Impacted cerumen, ri ght ear Modified On:02/20/2023 Status:confirmed H61.22 Impacted cerumen, le ft ear Modified On:02/20/2023 Status:confirmed H66.90 Otitis media, unspec ified, unspecified ear Modified On:06/29/2023 Status:confirmed J01.41 Acute recurrent pans inusitis Modified On:09/16/2023 Status:confirmed S80.00XA Contusion of unspeci fied knee, [...] Status:confirmed L25.9 Contact dermatitis Modified On:02/20/2023 Status:confirmed M23.91 Internal derangement of right knee Modified On:02/20/2023 Status:confirmed Z02.5 Sports physical Modified On:02/20/2023 Status:confirmed R56.9 Seizure Modified On:02/20/2023 Status:confirmed H90.5 Hearing loss, sensor ineural Modified On:03/11/2023 Status:confirmed S60.229A Contusion, hand Modified On:02/20/2023 Status:confirmed M54.50 Back pain, lumbosacr al Modified On:02/20/2023 Status:confirmed J30.9 Allergic rhinitis Modified On:09/15/2023 Status:confirmed J30.9 Allergic rhinitis, u nspecified Modified On:12/20/2022 Status:confirmed G40.909 Cerebral seizure Modified On:01/16/2023 Status:confirmed G43.909 Migraine without sta tus migrainosus, not intractable, unspecified migraine type Modified On:01/16/2023 Status:confirmed F81.9 Cognitive developmen damaris delay Modified On:01/16/2023 Status:confirmed J30.2 Other seasonal aller gic rhinitis Modified On:10/22/2023 Status:confirmed Z91.09 Other allergy status , other than to drugs and biological substances Modified On:01/08/2024 Status:confirmed K59.00 Constipated Modified On:05/13/2023 Status:confirmed M53.86 Low back derangement syndrome Modified On:05/13/2023 Status:confirmed M79.671 Pain in right foot Modified [...] nspecified Modified On:02/01/2024 Status:confirmed R59.1 Lymphadenopathy Modified On:03/28/2024U Status:confirmed J01.90 Acute sinusitis Modified On:09/11/2024W/U Status:confirmed G43.909 Migraine Modified On:06/21/2024U Status:confirmed Z29.8 Encounter for immuno therapy Modified On:06/29/2024U Status:confirmed M17.10 Knee osteoarthritis Modified On:06/29/2024/U Status:confirmed M25.569 Knee pain Modified On:03/28/2025/U Status:confirmed B07.9 Wart Modified On:04/12/2025 Status:confirmed K57.92 Diverticulitis Modified On:04/21/2025 Status:confirmed * Medical History: * Surgical History: * Hospitalization/Major Diagno stic Procedure: * Medications: Objective: * Vitals: Assessment: * Assessment: 1. E ncounter for other specified prophylactic measures - Z29.89 Plan: * Treatment: * Procedures: A llergy: Allergy Shot A dministered. Vial A A llergy: Non Specified Formulation: RED (1:1), Expires: 08/15/2025, Arm: Left Arm . Vial B F ormulation: RED (1:1), Allergies: Not Specified Expires: 08/15/2025, Arm: Right Arm . * Procedure Codes: 9 5144 ANTIGENS,SINGLE DOSE VIAL * * Sign off status: Completed Visit Status: C HK (Check Out) true * Provider: Rex Tovar ([facility])MD Date: 04/26/2025 Generated for Bebetoi ng/Fachrystalg/eTransmitting on: 05/04/2025 02:50 PM EDT History and Physical Notes * HPI (History of Present Illness) Category Sub-Category Detail Notes Category Not es General Patient present s today for allergy injection
--- OUTSIDE RECORDS SUMMARY | 2025-04-26 12:48 | XMS_ITS ---
Author Organization [facility] [place] Address [address] [place] [address] Care Team Providers Care Ordnance Mechanic Name Role Phone Jose Tovar Primary Care Provider REASON FOR VISIT knee pain Encounters Encounter Location Date Provider Diagnosis [facility] [address] [place] [address] 04/26/2025 Jose Tovar Knee pain, right M25.561 and Left knee pain M25.562 Assessments Encounter Date Diagnosis (ICD Code) Assessment Notes Treatment Notes Treatment Clinical Notes Section Notes 04/26/2025 Knee pain, right (ICD-10 - M25.561) 04/26/2025 Left knee pain (ICD-10 - M25.562) Plan Of Treatment Pending Test Test Name Order Date CT Knees Bilateral without contrast * Progress Notes * Luis Fernando RDOB:1975 ( 49 yo M)Acc No.[id number]:04/26/2025 Patient: Luis Fernando LAU :1975 A ge:49 Y S ex:Male Address:[address] [place], [address] Subjective: * Chief Complaints: * K nee pain * Medical History: * Surgical History: * Hospitalization/Major Diagno stic Procedure: * Medications: Objective: * Vitals: * Physical Examination: Assessment: * Assessment: 1. K nee pain, right - M25.561 (Primary) 2 . L eft knee pain - M25.562 Plan: * Treatment: 2. L eft knee pain I maging: CT Knees Bilateral without contrast * * Procedure Codes: * true * Date: Generated for Margo armijo/Carrillo/Laila on: 0 05/04/2025 02:49 PM EDT
--- OUTSIDE RECORDS SUMMARY | 2025-05-04 09:45 | XMS_ITS ---
Author Organization [facility] [place] Address [address] [place] [address] Care Team Providers Care Attorney Lawyer Name Role Phone Jose Tovar Primary Care Provider Allergies No Known Allergies REASON FOR VISIT Patient was on a water slide, went down the wrong way on the left side of body, hurt last night andtoday Medications Medication SIG (Take, Route, Frequency, Duration) Notes Start Date End Date Status Gabapentin 300 MG 1 capsule Orally TID Active Fluticasone Propionate 50 MCG/ACT USE 1 SPRAY INTO EACH NOSTRIL TWICE A DAY for 30 Active Pantoprazole Sodium 40 MG TAKE 1 TABLET BY MOUTH EVERY DAY IN THE EVENING for 30 Active metroNIDAZOLE 500 MG 1 tablet Orally Thr ee times a day for 10 days 04/21/2025 Active Fenofibrate 145 MG TAKE 1 TABLET BY CORINNA TH EVERY DAY for 90 Active Virasal 27.5 % 1 application as nee ded Externally Once a day 04/12/2025 Active Cetirizine HCl 10 MG TAKE 1 TABLET (10 M G) BY MOUTH DAILY NEEDED FOR ALLERGIES for 90 Active Diclofenac Sodium 75 MG TAKE 1 TABLET BY MOUTH TWICE A DAY NEEDED FOR 30 DAYS for 30 Active Azelastine HCl 0.05 % INSTILL 1 DROP INT O AFFECTED EYE TWICE A DAY for 45 Active Trileptal 600 MG 1 tablet Orally Twic e a day Active Triamcinolone Acetonide 0.1 % 1 application Externally Two times a Week Active tiZANidine HCl 4 MG 2 tabs Orally qhs fo r 30 days 11/16/2024 Active Social History Tobacco Use: Social History Observation Description Date Details (start date - stop date) Never Smoker NA - NA Tobacco Use/Smoking Question Answer Notes Patient is a nonsmoker Problems Problem Type SNOMED Code ICD Code Onset Dates Problem Status W/U Status Risk Notes Problem Chest wall pain ([id number]) Chest wall pain (R07.89) Active confirmed Vital Signs Blood pressure systolic 124 mm Hg 05/04/20 25 Blood pressure diastolic 70 mm Hg 025 Height 71 in 05/04/2025 Weight 194.4 lbs 05/04/2025 BMI 27.11 kg/m2 05/04/2025 Encounters Encounter Location Date Provider Diagnosis [facility] [address] [place] [address] 05/04/2025 Jose Hoy Chest wall pain R07. 89 Assessments Encounter Date Diagnosis (ICD Code) Assessment Notes Treatment Notes Treatment Clinical Notes Section Notes 05/04/2025 Chest wall pain (ICD-10 - R07.89) Plan Of Treatment Pending Test Test Name Order Date XR CHEST 2 V 05/04/2025 XR ribs LT 2V 05/04/2025 Progress Notes * Luis Fernando RDOB:1975 ( 49 yo M)Acc No.[id number]:05/04/2025 UNLOCKED PROGRESS NOTE Progress Note Patient: Luis Fernando LAU Provider: Rex Tovar ([facility])MD :1975 A ge:49 Y S ex:Male Date:05/04/2025 Address:[address] [place], [place] [id number] Check In:01:36 PM ESTCheck O ut:02:31 PM EST Subjective: * Chief Complaints: * 1 . Patient was on a water slide, went down the wrong way on the left side of body, hurt last night and today. * HPI: G eneral: slid on water slid - had pain on left side. * ROS: E ENT: hearing changes d enies. v isual changes d enies.?non-healing mouth sores d enies. s wollen glands or neck lumps d enies. h oarseness d enies. s ore throat d enies. d ifficulty swallowing d enies. n ose bleeds d enies. n cherri congestion d enies. e ar ache d enies. e ar discharge?denies. r inging in ears d enies. l ight sensitivity d enies. e ye pain d enies. b lurring d enies. e ye irritation d enies. d ouble vision d enies.?vision loss d enies. G eneral/Constitutional: Sweats: D enies. F atigue d enies. S leep problems d enies. A norexia d enies. M alaise d enies. W eight loss d enies.?Fatigue or Weakness d enies. F ever or Chills d enies. C ardiovascular: Shortness of Breath w/lying flat d enies. L ightheadedness/dizziness d enies. C hest tightness/ heavy pressure d enies. S welling of legs, ankles, or feet d enies. W aking up with shortness of breath d enies. C hest pain denies. P alpitations d enies. W eight gain d enies. R espiratory: Chronic or frequent cough d enies. C oughing up blood?denies. D ifficulty breathing d enies. P roductive cough d enies. S noring?denies. S hortness of breath that awakens from sleep (PND) d enies. C hest pain d enies. S putum production d enies. W heezing d enies. M usculoskeletal: Joint pain d enies. J oint Fluid d enies. B ack pain d enies. K nee pain d enies. N maxwell pain d enies. J oint Stiffness d enies. M uscle cramps d enies. W eakness of muscles d enies. A rthritis d enies. M uscle aches d enies. P ain in shoulder(s) d enies. S wollen joints d enies. * Medical History: O titis media, left, [...] T aking Azelastine HCl 0.05 % Solution INSTILL 1 DROP INTO AFFECTED EYE TWICE A DAY , Taking Cetirizine HCl 10 MG Tablet [...] Capsule 1 capsule Orally TID , Taking metroNIDAZOLE 500 MG Tablet 1 tablet Orally Three times a day , Taking Pantoprazole Sodium 40 MG Tablet Delayed Release TAKE 1 TABLET BY MOUTH EVERY DAY IN THE EVENING , Taking tiZANidine HCl 4 MG Tablet 2 tabs Orally qhs , Taking Triamcinolone Acetonide 0.1 % Cream 1 application Externally Two times a Week , Taking Trileptal(OXcarbazepine) 600 MG Tablet 1 tablet Orally Twice a day , Taking Virasal(Salicylic Acid) 27.5 % Liquid 1 application as needed Externally Once a day , Discontinued Ciprofloxacin HCl 500 MG Tablet 1 tablet Orally every 12 hrs , Discontinued Pyridium(Phenazopyridine HCl) 200 MG Tablet 1 tablet after meals Orally Three times a day , Medication List reviewed and reconciled with the patient * Allergies: N .K.D.A. Objective: * Vitals: W t:194.4lbs, Ht: 71 in, BP:124/70mm Hg, BMI:27.11Index, Ht-cm: 180.34 cm, Wt-k.18 kg. * Examination: P hysical Exam: GENERAL: w ell developed, well nourished, in no acute distress. HEAD: n ormocephalic/atraumatic. EYES: p upils equal, round and reactive to light, conjunctivae and sclerae normal. EARS: n o deformity or lesion of external ear, canals and TM appear normal bilaterally, TM's intact, not inflamed with normal light reflex, hearing grossly normal to conversational speech. NOSE: n o deformity, discharge, inflammation, or lesions.? MOUTH: m ucous membranes moist, normal oropharynx and posterior pharynx without lesions or exudates, tongue normal, dentition normal. NECK: n maxwell supple, no masses or palpable cervical nodes, trachea midline, thyroid without nodules, masses, tenderness, or enlargement. CHEST: l eft ant chest wall tendnerss over bone more than between. LUNGS: n ormal respiratory effort and clear to auscultation, no wheezes, rales, or rhonchi, good air exchange. CARDIO: r egular rate and rhythm, normal S1 and S2, nor murmur, rub, or gallop. PULSES: n ormal capillary refill. ABDOMEN: s oft, non-distended, non-tender, no masses. MUSCULOSKELETAL: n o deformity or scoliosis noted, normal range of motion, joints normal, no erythema, edema, effusion, or ecchymosis. EXTREMITY: n o clubbing, cyanosis, edema, or deformity with normal ROM in both upper and lower bilateral extremities. NEUROLOGIC: g rossly normal. SKIN: n o rashes, ulcerations, or suspicious lesions. LYMPH NODES: n o cervical adenopathy, nodes normal. MENTAL STATUS: a lert and oriented x3, normal mood and affect. Assessment: * Assessment: 1. C hest wall pain - R07.89 (Primary) Plan: * Treatment: * Preventive Medicine: Screenings/Counseling: B GA ACTION PLAN Above Normal BMI Follow-up D ietary management education, guidance, and counseling * * Electronic signature of Jose Tovar MD, [phone] on 05/04/2025 at 02:50 PM EDT Sign off status: Pending Visit Status: C TONY (Check Out) * Provider: Rex Tovar ([facility])MD Date: 05/04/2025 Generated for Printi ng/Faxing/eTransmitting on: 05/04/2025 02:50 PM EDT History and Physical Notes * HPI (History of Present Illness) Category Sub-Category Detail Notes Category Not es General slid on water s lid - had pain on left side Examination Category Sub-Category Detail Notes Category Not es Physical Exam GENERAL: well developed, well nourished, in no acute distress HEAD: normocephalic/atraum atic EYES: pupils equal, round and reactive to light, conjunctivae and sclerae normal EARS: no deformity or lesi on of external ear, canals and TM appear normal bilaterally, TM's intact, not inflamed with normal light reflex, hearing grossly normal to conversational speech NOSE: no deformity, discha rge, inflammation, or lesions MOUTH: mucous membranes [address] st, normal oropharynx and posterior pharynx without lesions or exudates, tongue normal, dentition normal NECK: neck supple, no mass es or palpable cervical nodes, trachea midline, thyroid without nodules, masses, tenderness, or enlargement CHEST: left ant chest wall tendnerss over bone more than between LUNGS: normal respiratory e ffort and clear to auscultation, no wheezes, rales, or rhonchi, good air exchange CARDIO: regular rate and rhy thm, normal S1 and S2, nor murmur, rub, or gallop PULSES: normal capillary ref ill ABDOMEN: soft, non-distended, non-tender, no masses RECTAL: MUSCULOSKELETAL: no deformity or scol iosis noted, normal range of motion, joints normal, no erythema, edema, effusion, or ecchymosis EXTREMITY: no clubbing, cyanosi s, edema, or deformity with normal ROM in both upper and lower bilateral extremities NEUROLOGIC: grossly normal SKIN: no rashes, ulceratio ns, or suspicious lesions LYMPH NODES: no cervical adenopat hy, nodes normal MENTAL STATUS: alert and oriented x 3, normal mood and affect
--- NOTE | 2025-05-04 14:49 | XR_ITS ---
The [address] [address] Patient Name: KJ NICOLAS MRN: [id number] date: 1975 Sex: M Assigned Patient Location: [facility] Current Patient Location: Accession/Order Number: [id number] Exam Date: 05/05/2025 09:51 Report Date: 05/05/2025 09:51 At the request of: JORDAN WYLIE MD Procedure: XR chest 2V Chest 2 views CLINICAL HISTORY: Chest wall pain COMPARISON: None FINDINGS: Heart normal in size. Lungs are clear. No free air. XR/XR chest 2V IMPRESSION: NO ACUTE CARDIOPULMONARY ABNORMALITY. Impression dictated by: Jerad Amos Jr. DMarialuisaOMarialuisa 05/05/2025 9:51 AM Dictation Location: [place] [address] Electronically authenticated by: [id number] Y Date: 05/05/2025 09:51
--- NOTE | 2025-05-04 14:49 | XR_ITS ---
The [address] [address] Patient Name: KJ NICOLAS MRN: [id number] date: 1975 Sex: M Assigned Patient Location: [facility] Current Patient Location: [facility] Accession/Order Number: [id number] Exam Date: 05/04/2025 15:19 Report Date: 05/04/2025 15:20 At the request of: JORDAN WYLIE MD Procedure: XR ribs LT 2V Single view chest with 4 views left RIBS Reason for exam: Chest wall pain. COMPARISON: None. FINDINGS: Heart normal in size. Lungs are clear. No free air. No displaced left-sided rib fracture is seen. XR/XR ribs LT 2V IMPRESSION: No acute process. Impression dictated by: Jerad Amos Jr., D.O. 05/04/2025 3:20 PM Dictation Location: [place] [address] Electronically authenticated by: [id number] Y Date: 05/04/2025 15:20
--- OUTSIDE RECORDS SUMMARY | 2025-05-04 14:49 | XMS_ITS | Encounter Summary ---
Author Organization [facility] Address [address] [facility] [address] Care Team Providers Care Stage Hand Name Role Phone Bertrand Tovar MD Primary Care Provider [phone] Jennifer Miller DO Unavailable [phone] Shoshana Diaz MERCHANT [employer]AN Unavailable [phone] Reason for Visit * Reason Comments Med Refill Encounter Details Date Type Department Care Team (Late st Contact Info) Description 04/14/2025 Refill [facility] [address] [facility] [address] [place] [address] Irina Vega MD [address] [facility] [address] [place], [place] [id number] LPRD (laryngopharyngeal reflux disease) Social History Tobacco Use Types Packs/Day Years [...] on file documented as of this encounter Visit Diagnoses Diagnosis LPRD (laryngopharyngeal reflux disease) Acute laryngitis, without mention of obstruction documented in this encounter Care Teams Stage Hand Relationship Specialty Start Date End Date Bertrand Tovar MD PCP - General Family Medicine 02/03/24 Jennifer Miller DO [address] [place] [address] Referring Physician Neurology 10/18/24 Shoshana Diaz NP [address] [place] [address] Nurse Practitioner Neurology 10/18/24 documented as of this encounter
--- OUTSIDE RECORDS SUMMARY | 2025-05-04 14:49 | XMS_ITS | Patient Health Record ---
Author Organization [facility] [place] Address [address] [place] [address] Care Team Providers Care Bookkeeping Machine Operator Name Role Phone Jose Wylie Primary Care Provider [phone] JORDAN WYLIE Unavailable [phone] Allergies No Known Allergies Results Component Value Reference Range Notes XR knee SUHA 3V Reviewed date:04/12/2025 06:37:11 PM Interpretation: Performing Lab: Notes/Report: Source Facility: [place] [address] XRay Report Signed Patient: KJ NICOLAS MR#: [id number] : 1975 Acct:[id number] Age/Sex: 49 / M ADM Date: 04/12/25 Loc: RAD Attending Dr: Jordan Wylie M.D. Ordering Physician: Jordan Wylie M.D. Date of Service: 04/12/25 Procedure(s): XR knee SUHA 3V Accession Number(s): [id number] cc: Jordan Wylie M.D. [place] [address] Patient Name: KJ NICOLAS MRN: [id number] date: 1975 Sex: M Assigned Patient Location: RAD Current Patient Location: RAD Accession/Order Number: [id number] Exam Date: 04/12/2025 16:29 Report Date: 04/12/2025 16:30 At the request of: JORDAN WYLIE MD Procedure: XR knee SUHA 3V 3 views both knees HISTORY: Bilateral anterior knee pain. No joint effusion, bony malalignment or acute displaced fracture. No significant degeneration or soft tissue abnormality. XR/XR knee SUHA 3V IMPRESSION: Unremarkable exam Impression dictated by: Manoj Teran M.D. 04/12/2025 4:30 PM [facility]ictation Location[facility] Electron[facility] authenticated by: [id number] Y Date: 04/12/2025 16:30 Dictated By: Manoj Teran D.O. Signed By: 04/12/25 1633 DD/ 1630 TD/TT: Anchorman: [place] [address] XRay Report Signed Patient: KJ NICOLAS MR#: [id number] : 1975 Acct:[id number] Age/Sex: 49 / M ADM Date: 04/12/25 Loc: RAD Attending Dr: Brigitte Wylie M.D. Ordering Physician: Jordan Wylie M.D. Date of Service: 04/12/25 Procedure(s): XR kne e SUHA 3V Accession Number(s): [id number] cc: Jordan Wylie M.D. [place] [id number] Patient Name: KJ NICOLAS MRN: [id number] date: 1975 Sex: M Assigned Patient Location: [facility] Current Patient Location: RAD Accession/Order Number: [id number] Exam Date: 04/12/2025 16:29 Report Date: 04/12/2025 16:30 At the request of: JORDAN WYLIE MD Procedure: XR knee B IL 3V 3 views both knees HISTORY: Bilateral anterior knee pain. No joint effusion, bony malalignment or acute displaced fracture. No significant degeneration or soft tissue abnormality. XR/XR knee SUHA 3V IMPRESSION: Unremarkable exam Impression dictated by: Manoj Teran M.D. 04/12/2025 4:30 PM Dictation Location[facility] Electronically authenticated by: [id number] Y Date: 04/12/2025 16:30 Dictated By: Manoj Teran D.O. Signed By: 04/12/25 1633 DD/ 1630 TD/TT: Anchorman: GLYCOHEMOGLOBIN A1C Reviewed date:11/27/2024 09:16:11 AM Interpretation: Performing Lab: Notes/Report: [facility] , Glycohemoglobin A1C 5.2 4.5-6.2 % ADA RECOMMENDED LIMIT 4.0 - 6.0 ADA THERAPEUTIC TARGET < 7.0 ACTION SUGGESTED > 7.0 Estimated Average Glucose 103 Performing Lab: see note ML - [facility] LB XR hip RT 2V w/ pelvis Reviewed date:11/27/2024 09:16:11 AM Interpretation: Performing Lab: Notes/Report: Source Facility: [facility]-[address] [place] [address] XRay Report Signed Patient: KJ NICOLAS MR#: [id number] : 1975 Acct:[id number] Age/Sex: 49 / M ADM Date: 11/26/24 Loc: LAB Attending Dr: Jordan Wylie M.D. Ordering Physician: Jordan Wylie M.D. Date of Service: 11/26/24 Procedure(s): XR hip RT 2V w/ pelvis Accession Number(s): [id number] cc: Jordan Wylie M.D. [place] [address] Patient Name: KJ NICOLAS MRN: [facility]:[id number] date: 1975 Sex: M Assigned Patient Location: LAB Current Patient Location: LAB Accession/Order Number: [id number] Exam Date: 11/26/2024 10:36 Report Date: 11/26/2024 [...] Isael Amaro M.D.11/26/2024 10:38 AM Dictation Location: [place] [address] Electronically authenticated by: [id number] Y Date: 11/26/2024 10:38 Dictated By: Isael Amaro M.D. Signed By: 11/26/24 1040 DD/ 1038 TD/TT: Anchorman: [place] [address] XRay Report Signed Patient: KJ NICOLAS MR#: [id number] : 1975 Acct:[id number] Age/Sex: 49 / M ADM Date: 11/26/24 Loc: LAB Attending Dr: Brigitte Wylie M.D. Ordering Physician: Jordan Wylie M.D. Date of Service: 11/26/24 Procedure(s): XR hip RT 2V w/ pelvis Accession Number(s): [id number] cc: Jordan Wylie M.D. [place] [id number] Patient Name: KJ NICOLAS MRN: [id number] date: 1975 Sex: M Assigned Patient Location: LAB Current Patient Location: LAB Accession/Order Number: [id number] Exam Date: 11/26/2024 10:36 Report Date: 11/26/2024 [...] Isael Amaro M.D.11/26/2024 10:38 AM Dictation Location: [place] [address] Electronically authenticated by: [id number] Y Date: 11/26/2024 10:38 Dictated By: Isael Amaro M.D. Signed By: 11/26/24 1040 DD/ 1038 TD/TT: Anchorman: XR lumbar spine min 4V Reviewed date:11/27/2024 09:16:11 AM Interpretation: Performing Lab: Notes/Report: Source Facility: [place] [address] XRay Report Signed Patient: KJ NICOLAS MR#: [id number] : 1975 Acct:[id number] Age/Sex: 49 / M ADM Date: 11/26/24 Loc: LAB Attending Dr: Jordan Wylie M.D. Ordering Physician: Jordan Wylie M.D. Date of Service: 11/26/24 Procedure(s): XR lumbar spine min 4V Accession Number(s): [id number] cc: Jordan Wylie M.D. [place] [address] Patient Name: KJ NICOLAS MRN: [id number] date: 1975 Sex: M Assigned Patient Location: LAB Current Patient Location: LAB Accession/Order Number: [id number] Exam Date: 11/26/2024 10:33 Report Date: 11/26/2024 [...] Isael Amaro M.D.11/26/2024 10:36 AM Dictation Location: [place] [address] Electronically authenticated by: [id number] Y Date: 11/26/2024 10:36 Dictated By: Isael Amaro M.D. Signed By: 11/26/24 1039 DD/ 1036 TD/TT: Anchorman: [place] [address] XRay Report Signed Patient: KJ NICOLAS MR#: [id number] : 1975 Acct:[id number] Age/Sex: 49 / M ADM Date: 11/26/24 Loc: LAB Attending Dr: Brigitte Wylie M.D. Ordering Physician: Jordan Wylie M.D. Date of Service: 11/26/24 Procedure(s): XR lumbar spine min 4V Accession Number(s): [id number] cc: Jordan Wylie M.D. [place] [id number] Patient Name: KJ NICOLAS MRN: [id number] date: 1975 Sex: M Assigned Patient Location: LAB Current Patient Location: LAB Accession/Order Number: [id number] Exam Date: 11/26/2024 10:33 Report Date: 11/26/2024 [...] Isael Amaro M.D.11/26/2024 10:36 AM Dictation Location: [place] [address] Electronically authenticated by: [id number] Y Date: 11/26/2024 10:36 Dictated By: Isael Amaro M.D. Signed By: 11/26/24 1039 DD/ 1036 TD/TT: Anchorman: URIC ACID SERUM Reviewed date:11/27/2024 09:16:11 AM Interpretation: Performing Lab: Notes/Report: [facility] , Uric Acid 4.5 3.5-7.2 mg/dL Performing Lab: see note ML - [facility] LB TSH Reviewed date:11/27/2024 09:16:11 AM Interpretation: Performing Lab: Notes/Report: [facility] , Thyroid Stimulating Hormone 1.399 0.358-3.740 uIU/mL Performing Lab: see note ML - [facility] LB T4 Reviewed date:11/27/2024 09:16:11 AM Interpretation: Performing Lab: Notes/Report: [facility] , T4 Thyroxine 6.30 4.50-12.10 ug/dL Performing Lab: see note ML - [facility] LB PSA SCREENING Reviewed date:11/27/2024 09:16:11 AM Interpretation: Performing Lab: Notes/Report: [facility] , Prostate Specific Antigen Scrn 0.39 <=4.00 ng/mL Performing Lab: see note ML - [facility] LB PROF 14(COMP METB) Reviewed date:11/27/2024 09:16:11 AM Interpretation: Performing Lab: Notes/Report: [facility] , Sodium 131 136-145 mmol/L Potassium [...] 1.1 Performing Lab: see note ML - [facility] LB LIPID PROFILE Reviewed date:11/27/2024 09:16:11 AM Interpretation: Performing Lab: Notes/Report: [facility] , Triglycerides 112 <=150 mg/dL Cholesterol 241 <=200 mg/dL HDL Cholesterol 42 40-60 mg/dL > or =60 mg/dl - LOW CARDIOVASCULAR RISK <40 mg/dl - HIGH CARDIOVASCULAR RISK LDL Cholesterol Calculated 177.0 <100 mg/dl OPTIMAL 100-129 mg/dl NEAR OR ABOVE OPTIMAL 130-159 mg/dl BORDERLINE HIGH 160-189 mg/dl HIGH >190 mg/dl VERY HIGH VLDL CHOLESTEROL 22.4 Chol HDL Ratio 5.7 3.3 - 4.4 LOW RISK 4.4 - 7.1 AVERAGE RISK 7.1 - 11.0 MODERATE RISK >11.0 HIGH RISK Performing Lab: see note ML - [facility] LB INSULIN Reviewed date:11/27/2024 12:34:17 PM Interpretation: Performing Lab: Notes/Report: [facility] , Insulin 13.9 2.6-24.9 uIU/mL Performed at: [facility] [address] [id number] Husbandry Person: Wade Cherry PhD, Phone: [phone] Performing Lab: see note LC - [facility] LB FREE T3 Reviewed date:11/27/2024 09:16:11 AM Interpretation: Performing Lab: Notes/Report: [facility] , Free T3 1.26 2.18-3.98 pg/mL Performing Lab: see note ML - [facility] LB CBC AUTO DIFF Reviewed date:11/27/2024 09:16:11 AM Interpretation: Performing Lab: Notes/Report: [facility] , White Blood Count 4.9 4.0-11.0 [...] Performing Lab: see note ML - [facility] LB CT head/brain wo con Reviewed date:07/28/2024 06:57:32 PM Interpretation: Performing Lab: Notes/Report: Source Facility: [place] [address] [place] [address] CT Scan Report Signed Patient: KJ NICOLAS MR#: [id number] : 1975 Acct:[id number] Age/Sex: 48 / M ADM Date: 07/28/24 Loc: CT Attending Dr: Jordan Wylie M.D. Ordering Physician: Jordan Wylie M.D. Date of Service: 07/28/24 Procedure(s): CT head/brain wo con Accession Number(s): [id number] cc: Jordan Wylie M.D. [place] [address] Patient Name: KJ NICOLAS MRN: [id number] date: 1975 Sex: M Assigned Patient Location: CT Current Patient Location: CT Accession/Order Number: [id number] Exam Date: 07/28/2024 12:54 Report Date: 07/28/2024 [...] M.D. Signed By: 07/28/241845 DD/ 43 TD/TT: Anchorman: [place] [address] CT Scan Report Signed Patient: KJ NICOLAS MR#: [id number] : 1975 Acct:[id number] Age/Sex: 48 / M ADM Date: 07/28/24 Loc: CT Attending Dr: Brigitte Wylie M.D. Ordering Physician: Jordan Wylie M.D. Date of Service: 07/28/24 Procedure(s): CT head/brain wo con Accession Number(s): [id number] cc: Jordan Wylie M.D. [place] [address] Patient Name: KJ NICOLAS MRN: [id number] date: 1975 Sex: M Assigned Patient Location: CT Current Patient Location: CT Accession/Order Number: [id number] Exam Date: 12:54 Report Date: 07/28/2024 18:44 [...] M.D. Signed By: 07/28/241845 DD/ 43 TD/TT: Anchorman: LIN SHRESTHA ([phone]) - IN OFFICE (Not yet reviewed by provider) Interpretation: Performing Lab: Notes/Report: COLOR yellow GLUCOSE NEG BILIRUBIN NEG KETONE NEG SPECIFIC GRAVITY 1.015 BLOOD NEG PH 6 PROTEIN TRACE UROBILINOGEN 4 NITRITE NEG LEUKOCYTE ESTERASE TRACE Reason For Referral Diagnosis 1 Nevus (D22.9) Referral Organization [facility] Referring Provider First Name Jose Referring Provider Last Name La Referring Provider Speciality [facility] Referred Provider Kirby Li Referred Provider Specialty [...] a day for 10 days 04/21/2025 Active Virasal 27.5 % 1 application as nee ded Externally Once a day 04/12/2025 Active Cetirizine HCl 10 MG TAKE 1 TABLET (10 M G) BY MOUTH DAILY NEEDED FOR ALLERGIES for 90 Active Trileptal 600 MG 1 tablet Orally Twic e a day Active Fenofibrate 145 MG TAKE 1 TABLET BY CORINNA TH EVERY DAY for 90 Active Diclofenac Sodium 75 MG TAKE 1 TABLET BY MOUTH TWICE A DAY NEEDED FOR 30 DAYS for 30 Active Azelastine HCl 0.05 % INSTILL 1 DROP INT O AFFECTED EYE TWICE A DAY for 45 Active Triamcinolone Acetonide 0.1 % 1 application Externally Two times a Week Active tiZANidine HCl 4 MG 2 tabs Orally qhs fo r 30 days 11/16/2024 Active Immunizations Vaccine Route Administration Date Status Comme nts Flu, Flucelvax (4590-5045) (02657) 6 mos +, single-dose syringe IM Intramuscular 07/27/2023 Administered Flu, Flucelvax (73422) 6 mos and older, single-dose syringe IM Intramuscular 07/13/2024 Partially Administered Social History Tobacco Use: Social History Observation Description Date Details (start date - stop date) Never Smoker NA - NA Tobacco Use/Smoking Question Answer Notes Patient is a nonsmoker Alcohol Screen (Audit-C) Question Answer Notes Did you have a drink containing alcohol in the p ast year? No Points 0 Interpretation Negative AUDIT-C (Standard) Question Answer Notes Did you have a drink containing alcohol in the p ast year? No Points 0 Interpretation Negative Problems Problem Type SNOMED Code ICD Code Onset Dates Problem Status W/U Status Risk Notes Problem Impacted cerumen (36182347) Impacted cerumen, right ear (H61.21) Active confirmed Problem Impacted cerumen (10601792) Impacted cerumen, left ear (H61.22) Active confirmed Problem Otitis media (17330449) Otitis media, unspecified, unspecified ear (H66.90) Active confirmed Problem Recurrent acute sinusitis (338612987) Acute recurrent pansinusitis (J01.41) Active confirmed Problem 544884145 Other seasonal allergic rhinitis (J30.2) Active confirmed Problem Allergic rhinitis (43501026) Allergic rhinitis, unspecified (J30.9) Active confirmed Problem 31185510 Chronic sinusiti s, unspecified (J32.9) Active confirmed Problem 0864852961165353 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) Active confirmed Problem 3827189484734422 Other instabili ty, 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) Active confirmed Problem Hand pain (18041861) Pain in unspecified hand (M79.643) Active confirmed Problem 854853321170716 Pain in right fo ot (M79.671) Active confirmed Problem 98185732 Dysphagia, unspecified (R13.10) Active confirmed Problem Contusion of knee (35050583) Contusion of unspecified knee, initial encounter (S80.00XA) Active confirmed Problem Sprain of left knee (41415374069091702) Sprain of other specified parts of left knee, initial encounter (S83.8X2A) Active confirmed Problem Sprain of ankle (04577852) Sprain of unspecified ligament of unspecified ankle, initial encounter (S93.409A) Active confirmed Problem Other allergy status, other than to drugs and biological substances (Z91.09) Active confirmed Problem Wart (93482840) Wart (B07.9) Active confirmed Problem Gastroesophageal reflux disease (114680088) GERD (gastroesophageal reflux disease) (K21.9) Active confirmed Problem Knee pain (9607830686) Knee pain (M25.569) Active confirmed Problem Migraine (70403908) Migraine (G43.909) Active c onfirmed Problem Back pain (369552497) Back pain (M54.9) Active confirmed Problem 01925391 Migraine without status migrainosus, not intractable, unspecified migraine type (G43.909) Active confirmed Problem Acute sinusitis (01319285) Acute sinusitis (J01.90) Active confirmed Problem Allergic rhinitis (09435892) Allergic rhinitis (J30.9) Active confirmed Problem Chronic sinusitis (59433737) Chronic sinusitis (J32.9) Active confirmed Problem Well adult (062290527) Well adult (Z00.00) Active confirmed Problem Dysphagia (23363413) Dysphagia (R13.10) Active confirmed Problem Lymphadenopathy (59752817) Lymphadenopathy (R59.1) Active confirmed Problem Seasonal allergic rhinitis (469504406) Seasonal allergic rhinitis (J30.2) Active confirmed Problem Pain in limb (51711242) Foot pain, right (M79.671) Active confirmed Problem Diverticulitis (58253249) Diverticulitis (K57.92) Active confirmed Problem Chest wall pain (449122129) Chest wall pain (R07.89) Active confirmed Problem Contact dermatitis (33643777) Contact dermatitis (L25.9) Active confirmed Problem Constipated (61893967) Constipated (K59.00) Active confirmed Problem Internal derangement of right knee (19541712481425895) Internal derangement of right knee (M23.91) Active confirmed Problem 336979921 Cognitive developmental delay (F81.9) Active confirmed Problem History and physical examination, sports participation (993520670) Sports physical (Z02.5) Active confirmed Problem Seizure (28694078) Seizure (R56.9) Active confi rmed Problem Sensorineural hearing loss (23956806) Hearing loss, sensorineural (H90.5) Active confirmed Problem Contusion of hand (7083392) Contusion, hand (S60.229A) Active confirmed Problem Arthralgia of the pelvic region and thigh (796632499) Hip pain, acute, right (M25.551) Active confirmed Problem Disorder of sacrum (19956836) Low back derangement syndrome (M53.86) Active confirmed Problem Osteoarthritis of knee (201983891) Knee osteoarthritis (M17.10) Active confirmed Problem 260689653 Encounter for immunotherapy (Z29.8) Active confirmed Problem 212655958 Cerebral seizure (G40.909) Active confirmed Problem Low back pain (finding) (849378023) Back pain, lumbosacral (M54.50) Active confirmed Vital Signs Temperature 98.3 degrees Fahrenheit 04/21/2025 Blood pressure diastolic 70 mm Hg 05/04/2025 Height 71 in 05/04/2025 Blood pressure systolic 124 mm Hg 05/04/2025 Weight 194.4 lbs 05/04/2025 BMI 27.11 kg/m2 05/04/2025 Encounters Encounter Location Date Provider Diagnosis [facility] [address] [place] [address] 04/26/2025 Jose Hoy Knee pain, right M25 .561 and Left knee pain M25.562 [facility] [address] [place] [address] 12/26/2024 [facility] [address] [place] [address] 12/26/2024 [facility] [address] [place] [address] 04/05/2025 Jose Hoy Knee pain, right M25 .561 and Knee pain, left M25.562 [facility] [address] [place] [address] 04/12/2025 [facility] [address] [place] [address] 04/21/2025 [facility] [address] [place] [address] 04/26/2025 [facility] [address] [place] [address] 07/28/2024 [facility] [address] [place] [address] 10/26/2024 Jose Hoy [facility] [address] [facility] [place] [address] 11/22/2024 Jose Hoy [facility] [address] [facility] [place] [address] 11/27/2024 Jose Hoy Other specified abno rmal findings of blood chemistry R79.89 [facility] [address] [facility] [place] [address] 11/29/2024 Jose Hoy [facility] [address] [facility] [place] [address] 12/12/2024 Jose Hoy Acute bronchitis, unspecified organism J20.9 [facility] [address] [facility] [address] 06/08/2024 Jose Hoy [facility] [address] [facility] [address] 06/15/2024 Jose Hoy Nevus D22.9 [facility] [address] [facility] [address] 06/21/2024 Jose Hoy Migraine G43.909 [facility] [address] [facility] [place] [address] 06/23/2024 Jose Hoy Foreign body (FB) in soft tissue M79.5 [facility] [address] [facility] [place] [address] 07/04/2024 Jose Hoy Knee pain, right M25 .561 [facility] [address] [facility] [address] 07/06/2024 Jose Hoy Migraine G43.909 and Knee osteoarthritis M17.10 [facility] [address] [facility] [address] 04/26/2025 Jose Hoy Encounter for other specified prophylactic measures Z29.89 [facility] [address] [facility] [address] 11/28/2024 Jose Hoy Other allergy status , other than to drugs and biological substances Z91.09 and Encounter for other specified prophylactic measures Z29.89 [facility] [address] [facility] [address] 12/28/2024 JORDAN HOY Allergic rhinitis J3 0.9 ; Seasonal allergic rhinitis J30.2 and Encounter for other specified prophylactic measures Z29.89 [facility] [address] [facility] [address] 01/09/2025 Jose Hoy Seasonal allergic rhinitis J30.2 and Encounter for other specified prophylactic measures Z29.89 [facility] [address] [facility] [address] 02/01/2025 Jose Hoy Seasonal allergic rhinitis J30.2 and Encounter for other specified prophylactic measures Z29.89 [facility] [address] [facility] [address] 02/24/2025 Jose Hoy Encounter for immunotherapy Z29.8 [facility] [address] [facility] [address] 03/24/2025 Jose Hoy Seasonal allergic rhinitis J30.2 and Encounter for other specified prophylactic measures Z29.89 [facility] [address] [facility] [address] 08/04/2024 Jose Hoy Allergic rhinitis, unspecified J30.9 and Encounter for other specified prophylactic measures Z29.89 [facility] [address] [facility] [address] 08/22/2024 Jose Hoy Other seasonal aller gic rhinitis J30.2 and Encounter for other specified prophylactic measures Z29.89 [facility] [address] [facility] [address] 09/08/2024 Jose Hoy Allergic rhinitis J3 0.9 and Encounter for immunotherapy Z29.8 [facility] [address] [facility] [address] 09/19/2024 Jose Hoy Chronic sinusitis, unspecified J32.9 and Encounter for other specified prophylactic measures Z29.89 [facility] [address] [facility] [address] 10/06/2024 Jose Hoy Seasonal allergic rhinitis J30.2 and Encounter for other specified prophylactic measures Z29.89 [facility] [address] [facility] [address] 10/19/2024 Jose Hoy Other allergy status , other than to drugs and biological substances Z91.09 and Encounter for other specified prophylactic measures Z29.89 [facility] [address] [facility] [address] 05/05/2024 Jose Hoy Encounter for other specified prophylactic measures Z29.89 [facility] [address] [facility] [address] 05/19/2024 Jose Hoy Seasonal allergic rhinitis J30.2 and Encounter for other specified prophylactic measures Z29.89 [facility] [address] [facility] [address] 06/01/2024 Jose Hoy Encounter for other specified prophylactic measures Z29.89 [facility] [address] [facility] [address] 07/13/2024 Jose Hoy Encounter for immunization Z23 and Encounter for other specified prophylactic measures Z29.89 [facility] [address] [facility] [address] 11/03/2024 Jose Hoy Acute bronchiolitis J21.9 ; Cerebral seizure G40.909 and Encounter for other specified prophylactic measures Z29.89 [facility] [address] [facility] [address] 11/16/2024 Jose Hoy Encounter for immunotherapy Z29.8 ; Low back derangement syndrome M53.86 and Well adult Z00.00 [facility] [address] [facility] [address] 04/12/2025 Jose Hoy Wart B07.9 and Encou nter for other specified prophylactic measures Z29.89 [facility] [address] [facility] [address] 04/14/2025 Jose Hoy Frequency R35.0 and Acute UTI N39.0 [facility] [address] [facility] [address] 12/12/2024 Jose Hoy Encounter for other specified prophylactic measures Z29.89 and Acute bronchitis, unspecified organism J20.9 [facility] [address] [place] [address] 03/09/2025 Jose Hoy Other allergy status , other than to drugs and biological substances Z91.09 and Encounter for other specified prophylactic measures Z29.89 [facility] [address] [place] [address] 05/04/2025 Jose Hoy Chest wall pain R07. 89 [facility] [address] [facility] [address] 06/15/2024 Jose Hoy Acute sinusitis J01. 90 and Encounter for other specified prophylactic measures Z29.89 [facility] [address] [facility] [address] 06/29/2024 Jose Hoy Knee osteoarthritis M17.10 and Encounter for other specified prophylactic measures Z29.89 [facility] [address] [facility] [address] 03/28/2025 Jose Hoy Knee pain M25.569 an d Knee pain, right M25.561 [facility] [address] [facility] [address] 04/21/2025 Jose Hoy Diverticulitis K57.9 2 Assessments Encounter Date Diagnosis (ICD Code) Assessment Notes Treatment Notes Treatment Clinical Notes Section Notes 05/05/2024 Encounter for other specified prophylactic measures [...] Other seasonal allergic rhinitis (ICD-10 - J30.2) 01/09/2025 Seasonal allergic rhinitis (ICD-10 - J30.2) [...] Knee pain, right (ICD-10 - M25.561) 04/12/2025 Wart (ICD-10 - B07.9) 04/12/2025 Encounter for other specified prophylactic measures (ICD-10 - Z29.89) 04/14/2025 Frequency (ICD-10 - R35.0) 04/14/2025 Acute UTI (ICD-10 - N39.0) 04/21/2025 Diverticulitis (ICD-10 - K57.92) 04/26/2025 Encounter for other specified prophylactic measures (ICD-10 - Z29.89) 05/04/2025 Chest wall pain (ICD-10 - R07.89) 06/15/2024 Nevus (ICD-10 - D22.9) 06/21/2024 Migraine [...] 04/05/2025 Knee pain, left (ICD-10 - M25.562) 04/26/2025 Knee pain, right (ICD-10 - M25.561) 04/26/2025 Left knee pain (ICD-10 - M25.562) 09/19/2024 Chronic sinusitis, unspecified (ICD-10 - J32.9) [...] J21.9) 11/03/2024 Cerebral seizure (ICD-10 - G40.909) 11/16/2024 Encounter for immunotherapy (ICD-10 - Z29.8) [...] vaporizer to help keep the drainage moist. Fdfn-wpt-avgigxg Nasal Saline may help the stuffy and runny nose. Use Ibuprofen and or Tylenol as needed for fever, chills, body aches or pain. Children 5 years old should not be given gtvu-jkk-bhcdtfx cough and cold medications such as guaifenesin and dextromethorphan. If you're over age 5, you may try wiec-dnu-itqlknh cold medications such as guaifenesin and dextromethorphan, [...] contrast 04/14 CT Brain w/o contrast 07/06/2024 CT Knees Bilateral without contrast * MRI Knee RT w/o contrast * 07/04/2024 US Soft Tissue Neck/Head 03/28/2024 Urinalysis Microscopic 08/26/2023 UA DIP NONAUTO WO MICRO (74461) - IN OFF ICE 04/14/2025 PSA, TOTAL 11/16/2024 MRI Brain w/o Contrast 06/21/2024 CULTURE URINE 08/26/2023 ANDREA-MARTINEZ VIRUS (EBV) AB PROFILE 03/06 MONO 03/28/2024 CT SINUSES WO CON 01/12/2024 US APPENDIX 04/09/2023 XR CHEST 2 V 05/04/2025 XR HIP RT 2 3V W PELVIS 08/26/2023 XR LSPINE MIN 4 VIEWS 11/16/2024 XR MODIFIED BARIUM SWALLOW 01/12/2024 XR SINUSES 3 VIEWS OR GREATER 01/25/2024 THYROID PANEL (T4/TSH/FREE T3) THYROID PANEL (T4/TSH/FREE T3) 5 XR HIP RT 2 3V W PELVIS 11/16/2024 XR pelvis 1-2V 06/23/2024 XR ribs LT 2V 05/04/2025 CT KNEE RIGHT WO CONTRAST 07/06/2024 CMP (COMP MET EDWARDS) w/eGFR CKD-EPI 2024 Insurance Providers Payer Name Payer Address Payer Phone Subscriber Number Group Number Insured Name Patient Relationship to Insured Coverage Start Date Coverage End Date [employer] MEDICARE [address] [place], [place] [id number] Kj Nicolas Self - patient is the insured MEDICAID [place] 2ND INS [address] [facility] [address] [place], [place] [id number] Kj Nicolas Self - patient is the [...] Surgical History Surgery Date(Month/Year) Foot Surgery- Right 2006 Hospitalization History Reason Date(Month/Year) see above
--- OUTSIDE RECORDS SUMMARY | 2025-05-04 14:49 | XMS_ITS | Clinical Summary ---
Author Organization [facility] Address [address] [place] [address] Care Team Providers Care Basting Puller Name Role Phone Bertrand Tovar MD Primary Care Provider [phone] Jennifer Miller DO Unavailable [phone] Shoshana Diaz BAND LINING BANDER Unavailable [phone] Allergies Active Allergy Reactions Criticality Noted Date Comments Dust Mite Extract 07/14/2017 Molds & Smuts 07/27/2017 Medications diclofenac (Voltaren) 75 MG EC tablet Take 75 mg by mouth in the morning and 75 mg before bedtime. 4 Active fenofibrate (Tricor) 145 MG tablet Take 145 mg by mouth Daily 4 Active EPINEPHrine (Epipen) 0.3 MG/0.3ML injection syringe Inject 1 Syringe as directed 1 (one) time 4 Active fluticasone (Flonase) 50 MCG/ACT nasal sprayIndications :Chronic pansinusitis Administer 2 sprays into each nostril Daily Shake gently. Before first use, prime pump. After use, clean tip and replace cap. 16 g 11 4 Active Additional Information Patient not taking.Reported on 12/19/2024 cetirizine (ZyrTEC) 10 MG tabletIndication s:Chronic pansinusitis Take 1 tablet (10 mg) by mouth Daily as needed for allergies 30 tablet 11 4 Active famotidine (Pepcid) 20 MG tabletIndication s:LPRD (laryngopharynge al reflux disease) Take 1 tablet (20 mg) by mouth at bedtime 90 tablet 3 4 Active gabapentin (Neurontin) 300 MG capsuleIndicatio ns:Nonintractabl e epilepsy without status epilepticus, unspecified epilepsy type (HCC) Take 1 capsule (300 mg) by mouth in the morning and 1 capsule (300 mg) in the evening and 1 capsule (300 mg) before bedtime. 90 capsule 2 4 Active OXcarbazepine (Trileptal) 300 MG tabletIndication s:Seizure disorder (HCC) TAKE 2 TABLETS BY MOUTH IN THE MORNING AND 2 TABLETS BEFORE BEDTIME 360 tablet 1 5 Active Active Problems Problem Noted Date Diagnosed Date Chronic pansinusitis 03/02/2024 LPRD (laryngopharyngeal reflux disease) 03/02/20 24 Seasonal allergic rhinitis 02/22/2024 Diverticulitis 02/22/2024 Headache 02/22/2024 Hearing loss 02/22/2024 OM (otitis media) 02/22/2024 Acute sinusitis 02/22/2024 Migraine 02/04/2024 Seizure disorder 02/04/2024 Dizziness 02/04/2024 Cognitive developmental delay 02/04/2024 Encounters Date Type Department Care Team Description 04/14/2025 Refill [facility] [address] [facility] [address] [place] [address] Irina Vega MD LPRD (laryngopharyngeal reflux disease) 02/01/2025 Telephone [facility]AR[facility] [address] [place] [address] Apple Cooper MA MED REFILL REQ from Last 3 Months Family History Medical History Relation Name Comments No Known Problems Brother No Known Problems Father Diabetes Mother HTN Mother seizure disorder Other Relation Name Status Comments Brother Alive Father Alive Mother Alive Other Social History Tobacco Use Types Packs/Day Years Used Date Smoking Tobacco: Never Smokeless Tobacco: Never Tobacco Cessation:Counseling Given: Not Answered Alcohol Use Standard Drinks/Week Comments Never 0 (1 standard drink = 0.6 oz pur e alcohol) Sex and Gender Information Value Date Recorded Sex Assigned at Not on file Legal Sex Male 7:17 PM EDT Gender Identity Not on file Sexual Orientation Not on file Last Filed Vital Signs Vital Sign Reading Time Taken Comments Blood Pressure 122/80 12/19/2024 2:22 PM EDT Pulse 84 12/19/2024 2:22 PM EDT Temperature - - Respiratory Rate - - Oxygen Saturation 94% 12/19/2024 2:22 PM EDT Inhaled Oxygen Concentration - - Weight 91.2 kg (201 lb) 12/19/2024 2:22 PM EDT Height 180.3 cm (5' 11 ) 12/19/2024 2:22 PM EDT Body Mass Index 28.03 12/19/2024 2:22 PM EDT Plan of Treatment Health Maintenance Due Date Last Done Comments CT Colonography 1975 Colonoscopy 1975 Colorectal Cancer Screening 1975 FIT-DNA 1975 FIT 1975 FOBT 1975 Sigmoidoscopy 1975 Influenza Vaccine (#1) 2025 3, 08/07/2022, 07/16/2021, Additional history exists Medical Devices Implanted Type Area Process Specialist Device Identifier Shelf Expiration Date Model / Serial / Lot Bb In Rectal Area Rectum Insurance [employer] MEDICARE ADVANTAGE MEDICAID [place] Care Teams Basting Puller Relationship Specialty Start Date End Date Bertrand Tovar MD PCP - General Family Medicine 02/03/24 Jennifer Miller DO [address] [place] [address] Referring Physician Neurology 10/18/24 Shoshana Diaz NP [address] [place] [address] Nurse Practitioner Neurology 10/18/24
--- OUTSIDE RECORDS SUMMARY | 2025-05-04 14:50 | XMS_ITS | Encounter Summary ---
Author Organization [facility] Address [address] [place] [address] Care Team Providers Care Firearms Expert Name Role Phone Bertrand Tovar MD Primary Care Provider [phone] Jennifer Miller DO Unavailable [phone] Shoshana Diaz PUBLIC ADDRESS TECHNICIAN Unavailable Encounter Details Date Type Department Care Team (Late st Contact Info) Description 03/30/2024 Clinisync Result Encounter [facility] External Department Unsolicited Irina Vega MD [address] [address] Social History Tobacco Use Types Packs/Day Years [...] facial pressure COMPARISON: NONE. FINDINGS: Within the ddlzo-qe-jigc the ventricles are of normal size configuration. [...] facial pressure COMPARISON: NONE. FINDINGS: Within the plkpv-bn-ryuy the ventricles are of normal size configuration.No [...] to as lowas reasonably achievable. Ordering Provider: Irina Vega FINAL REPORT Dictated: 03/31/2024 9:44 am Manoj Brown Signed (Electronic Signature): 03/31/2024 9:44 am Signed by: Manoj Brown Transcribed by: RIGO Technologist: ANGIE Irina Vega MD [facility] Final Resul t documented in this encounter Visit Diagnoses Not on filedocumented in this encounter Care Teams Firearms Expert Relationship Specialty Start Date End Date Bertrand Tovar MD PCP - General Family Medicine 02/03/24 Jennifer Miller DO [address] [place] [address] Referring Physician Neurology 10/18/24 Shoshana Diaz NP [address] [place] [address] Nurse Practitioner Neurology 10/18/24 documented as of this encounter
== END 2025-05-04 14:44 | disposition home or self-care (01) ==
LOC: RAD 14:45
PROVIDERS: PCP Family Medicine; Visit Provider Family Medicine
DX: R07.89 Other chest pain (principal)
CPT/HCPCS: 71046; 71100

== ENCOUNTER 2025-05-16 12:23 | Outpatient (REF) | payer MEDICARE, MEDICAID, SELFPAY ==
--- OUTSIDE RECORDS SUMMARY | 2025-05-04 11:55 | XMS_ITS ---
Author Organization [facility] [place] Address [address] [place] [address] Care Team Providers Care Telegraph Service Rater Name Role Phone Jose Tovar Primary Care Provider REASON FOR VISIT xr Encounters Encounter Location Date Provider Diagnosis [facility] [address] [place] [address] 05/04/2025 Jose Tovar Plan Of Treatment No Information Progress Notes * Luis Fernando NICOLAS RDOB:1975 ( 49 yo M)Acc No.[id number]:05/04/2025 Patient: Primo Luis Fernando SCHULTZ :1975 A ge:49 Y S ex:Male Address:[address] [place], [address] * true * Date: Generated for Printi ng/Faxing/eTransmitting on: 0 05/16/2025 12:26 PM EDT
--- OUTSIDE RECORDS SUMMARY | 2025-05-07 15:51 | XMS_ITS ---
Author Organization [facility] [place] Address [address] [place] [address] Care Team Providers Care Hat Ironer Name Role Phone Jose Tovar Primary Care Provider REASON FOR VISIT Chest X-Ray Results- LMTCB X 2 Encounters Encounter Location Date Provider Diagnosis [facility] [address] [place] [address] 05/07/2025 Jose Tovar Plan Of Treatment No Information Progress Notes * Luis Fernando NICOLAS RDOB:1975 ( 49 yo M)Acc No.[id number]:05/07/2025 Patient: Primo Luis Fernando SCHULTZ :1975 A ge:49 Y S ex:Male Address:[address] [place], [address] * true * Date: Generated for Margo armijo/Carrillo/eTransmitting on: 0 05/16/2025 12:25 PM EDT
--- OUTSIDE RECORDS SUMMARY | 2025-05-16 06:18 | XMS_ITS ---
Author Organization [facility] [place] Address [address] [place] [address] Care Team Providers Care Delinquency Counselor Name Role Phone Jose Tovar Primary Care Provider REASON FOR VISIT side and back pain Encounters Encounter Location Date Provider Diagnosis [facility] [address] [place] [address] 05/16/2025 Jose Tovar Flank pain R10.9 Assessments Encounter Date Diagnosis (ICD Code) Assessment Notes Treatment Notes Treatment Clinical Notes Section Notes 05/16/2025 Flank pain (ICD-10 - R10.9) Plan Of Treatment Pending Test Test Name Order Date UA (URINALYSIS, COMPLETE) 05/16/2025 CULTURE URINE 05/16/2025 URINE MICROSCOPIC ONLY 05/16/2025 Progress Notes * Luis Fernando RDOB:1975 ( 49 yo M)Acc No.[id number]:05/16/2025 Patient: Luis Fernando LAU Master :1975 A ge:49 Y S ex:Male Address:[address] [place], [address] Subjective: * Chief Complaints: * S maggy and back pain * Medical History: * Surgical History: * Hospitalization/Major Diagno stic Procedure: * Medications: Objective: * Vitals: * Physical Examination: Assessment: * Assessment: 1. F lank pain - R10.9 (Primary) Plan: * Treatment: * Procedure Codes: * true * Date: Generated for Printi ng/Faxing/eTransmitting on: 0 05/16/2025 12:26 PM EDT
--- OUTSIDE RECORDS SUMMARY | 2025-05-16 12:25 | XMS_ITS | Clinical Summary ---
Author Organization [facility] Address [address] [place] [address] Care Team Providers Care Right Of Way Man Name Role Phone Bertrand Tovar MD Primary Care Provider [phone] Jennifer Miller DO Unavailable [phone] Shoshana Diaz BARREL LATHE OPERATOR INSIDE Unavailable [phone] Allergies Active Allergy Reactions Criticality Noted [...] 04/14/2025 Refill [facility] [address] [place] [address] Irina Vega MD LPRD (laryngopharyngeal reflux disease) from Last 3 Months Family History Medical [...] history exists Medical Devices Implanted Type Area Hide Splitter Device Identifier Shelf Expiration Date Model / Serial / Lot Bb In Rectal Area Rectum Insurance [employer] MEDICARE ADVANTAGE MEDICAID [place] Care Teams Right Of Way Man Relationship Specialty Start Date End Date Bertrand Tovar MD PCP - General Family Medicine 02/03/24 Jennifer Miller DO [address] [place] [address] Referring Physician Neurology 10/18/24 Shoshana Diaz NP [address] [place] [address] Nurse Practitioner Neurology 10/18/24
--- OUTSIDE RECORDS SUMMARY | 2025-05-16 12:26 | XMS_ITS | Encounter Summary ---
Author Organization [facility] Address [address] [place] [address] Care Team Providers Care Blade Worker Name Role Phone Bertrand Tovar MD Primary Care Provider [phone] Jennifer Miller DO Unavailable [phone] Shoshana Diaz FACULTY RESEARCH ASSISTANT Unavailable Encounter Details Date Type Department Care Team (Late st Contact Info) Description 03/30/2024 Clinisync Result Encounter [facility] External Department Unsolicited Irina Vega MD [address] [address] Social History Tobacco Use Types Packs/Day Years [...] facial pressure COMPARISON: NONE. FINDINGS: Within the okspo-wf-jwtf the ventricles are of normal size configuration. [...] facial pressure COMPARISON: NONE. FINDINGS: Within the rlyzq-ix-epbl the ventricles are of normal size configuration.No [...] on filedocumented in this encounter Care Teams Blade Worker Relationship Specialty Start Date End Date Bertrand Tovar MD PCP - General Family Medicine 02/03/24 Jennifer Miller DO [address] [place] [address] Referring Physician Neurology 10/18/24 Shoshana Diaz NP [address] [place] [address] Nurse Practitioner Neurology 10/18/24 documented as of this encounter
--- OUTSIDE RECORDS SUMMARY | 2025-05-16 12:26 | XMS_ITS | Patient Health Record ---
Author Organization [facility] in [place] Address [address] [place] [address] Care Team Providers Care Turn Supervisor Name Role Phone Jose Wylie Primary Care Provider JORDAN WYLIE Unavailable [phone] Allergies No Known Allergies Results Component Value Reference Range Notes XR knee SUHA 3V Reviewed date:04/12/2025 06:37:11 PM Interpretation: Performing Lab: Notes/Report: Source Facility: [place] [address] XRay Report Signed Patient: KJ NICOLAS MR#: [id number] : 1975 Acct:[id number] Age/Sex: 49 / M ADM Date: 04/12/25 Loc: PEDRO Attending Dr: Jordan Wylie M.D. Ordering Physician: Jordan Wylie M.D. Date of Service: 04/12/25 Procedure(s): XR knee SUHA 3V Accession Number(s): [id number] cc: Jordan Wylie M.D. [place] [address] Patient Name: KJ NICOLAS MRN: [id number]:[id number] date: 1975 Sex: M Assigned Patient Location: RAD Current Patient Location: RAD Accession/Order Number: [id number] Exam Date: 04/12/2025 16:29 Report Date: 04/12/2025 [...] M.D. 04/12/2025 4:30 PM Dictation Location: [facility] Electronically authenticated by: [id number] Y Date: 04/12/2025 16:30 Dictated By: Manoj Teran D.O. Signed By: 04/12/25 1633 DD/ 1630 TD/TT: User Interface Engineer: [place] [address] XRay Report Signed Patient: KJ NICOLAS MR#: [id number] : 1975 Acct:[id number] Age/Sex: 49 / M ADM Date: 04/12/25 Loc: RAD Attending Dr: Brigitte Wylie M.D. Ordering Physician: Jordan Wylie M.D. Date of Service: 04/12/25 Procedure(s): XR kne e SUHA 3V Accession Number(s): [id number] cc: Jordan Wylie M.D. [place] [address] Patient Name: KJ NICOLAS MRN: TBH:[id number] date: 1975 Sex: M Assigned Patient Location: [facility] Current Patient Location: RAD Accession/Order Numb er: [id number] Exam Date: 04/12/2025 16:29 Report Date: 04/12/2025 16:30 At the request of: JORDAN WYLIE MD Procedure: XR knee B IL 3V 3 views both knees HISTORY: Bilateral anterior knee pain. No joint effusion, b west malalignment or acute displaced fracture. No significant degeneration or soft tissue abnormality. XR/XR knee SUHA 3V IMPRESSION: Unremarkable exam Impression dictated by: Manoj Teran M.D. 04/12/2025 4:30 PM Dictation Location: [facility] Electronically authenticated by: [id number] Y Date: 04/12/2025 16:30 Dictated By: Manoj Teran D.O. Signed By: 04/12/25 1633 DD/ 1630 TD/TT: User Interface Engineer: GLYCOHEMOGLOBIN A1C Reviewed date:11/27/2024 09:16:11 AM Interpretation: Performing Lab: Notes/Report: [facility] , Glycohemoglobin A1C 5.2 4.5-6.2 % ADA RECOMMENDED LIMIT 4.0 - 6.0 ADA THERAPEUTIC TARGET < 7.0 ACTION SUGGESTED > 7.0 Estimated Average Glucose 103 Performing Lab: see note ML - [facility] LB XR hip RT 2V w/ pelvis Reviewed date:11/27/2024 09:16:11 AM Interpretation: Performing Lab: Notes/Report: Source Facility: [facility]-[address] [place] [address] XRay Report Signed Patient: KJ NICOLAS MR#: [id number] : 1975 Acct:[id number] Age/Sex: 49 / M ADM Date: 11/26/24 Loc: LAB Attending Dr: Jordan Wylie M.D. Ordering Physician: Jordan Wylei M.D. Date of Service: 11/26/24 Procedure(s): XR hip RT 2V w/ pelvis Accession Number(s): [id number] cc: Jordan Wylie M.D. [place] [address] Patient Name: KJ NICOLAS MRN: [facility]:[id number] date: 1975 Sex: M Assigned Patient Location: LAB Current Patient Location: LAB Accession/Order Number: [id number] Exam Date: 11/26/2024 10:36 Report Date: 11/26/2024 [...] Isael Amaro M.D.11/26/2024 10:38 AM Dictation Location: [place] [address] Electronically authenticated by: [id number] Y Date: 11/26/2024 10:38 Dictated By: Isael Amaro M.D. Signed By: 11/26/24 1040 DD/ 1038 TD/TT: User Interface Engineer: [place] [address] XRay Report Signed Patient: KJ NICOLAS MR#: [id number] : 1975 Acct:[id number] Age/Sex: 49 / M ADM Date: 11/26/24 Loc: LAB Attending Dr: Brigitte Wylie M.D. Ordering Physician: Jrodan Wylie M.D. Date of Service: 11/26/24 Procedure(s): XR hip RT 2V w/ pelvis Accession Number(s): [id number] cc: Jordan Wylie M.D. [place] [address] Patient Name: KJ NICOLAS MRN: [id number] date: 1975 Sex: M Assigned Patient Location: LAB Current Patient Location: LAB Accession/Order Numb er: [id number] Exam Date: 11/26/2024 10:36 Report Date: 11/26/2024 [...] Isael Amaro M.D.11/26/2024 10:38 AM Dictation Location: [place] [address] Electronically authenticated by: [id number] Y Date: 11/26/2024 10:38 Dictated By: Isael Amaro M.D. Signed By: 11/26/24 1040 DD/ 1038 TD/TT: User Interface Engineer: XR lumbar spine min 4V Reviewed date:11/27/2024 09:16:11 AM Interpretation: Performing Lab: Notes/Report: Source Facility: [place] [address] XRay Report Signed Patient: KJ NICOLAS MR#: [id number] : 1975 Acct:[id number] Age/Sex: 49 / M ADM Date: 11/26/24 Loc: LAB Attending Dr: Jordan Wylie M.D. Ordering Physician: Jordan Wylie M.D. Date of Service: 11/26/24 Procedure(s): XR lumbar spine min 4V Accession Number(s): [id number] cc: Jordan Wylie M.D. [place] [address] Patient Name: KJ NICOLAS MRN: [id number]:[id number] date: 1975 Sex: M Assigned Patient Location: LAB Current Patient Location: LAB Accession/Order Number: [id number] Exam Date: 11/26/2024 10:33 Report Date: 11/26/2024 [...] Isael Amaro M.D.11/26/2024 10:36 AM Dictation Location: [place] [address] Electronically authenticated by: [id number] Y Date: 11/26/2024 10:36 Dictated By: Isael Amaro M.D. Signed By: 11/26/24 1039 DD/ 103 TD/TT: User Interface Engineer: [place] [address] XRay Report Signed Patient: KJ NICOLAS MR#: [id number] : 1975 Acct:[id number] Age/Sex: 49 / M ADM Date: 11/26/24 Loc: LAB Attending Dr: Brigitte Wylie M.D. Ordering Physician: Jordan Wylie M.D. Date of Service: 11/26/24 Procedure(s): XR lum bar spine min 4V Accession Number(s): [id number] cc: Jordan Wylie M.D. [place] [id number] Patient Name: KJ NICOLAS MRN: TBH:[id number] date: 1975 Sex: M Assigned Patient Location: LAB Current Patient Location: LAB Accession/Order Numb er: [id number] Exam Date: 11/26/2024 10:33 Report Date: 11/26/2024 [...] are normal. There is no fracture or destruct barbara lesion. Mild disc height los s is [...] Isael Amaro M.D.11/26/2024 10:36 AM Dictation Location: [place] [address] Electronically authenticated by: [id number] Y Date: 11/26/2024 10:36 Dictated By: Isael Amaro M.D. Signed By: 11/26/24 1039 DD/ 1036 TD/TT: User Interface Engineer: XR chest 2V Reviewed date:05/07/2025 07:53:06 PM Interpretation: Performing Lab: Notes/Report: Source Facility: [place] [address] XRay Report Signed Patient: KJ NICOLAS MR#: [id number] : 1975 Acct:[id number] Age/Sex: 49 / M ADM Date: 05/04/25 Loc: RAD Attending Dr: Jordan Wylie M.D. Ordering Physician: Jordan Wylie M.D. Date of Service: 05/04/25 Procedure(s): XR chest 2V Accession Number(s): [id number] cc: Jordan Wylie M.D. [place] [address] Patient Name: KJ NICOLAS MRN: [id number] date: 1975 Sex: M Assigned Patient Location: RAD Current Patient Location: Accession/Order Number: [id number] Exam Date: 05/05/2025 09:51 Report Date: 05/05/2025 09:51 At the request of: JORDAN WYLIE MD Procedure: XR chest 2V Chest 2 views CLINICAL HISTORY: Chest wall pain COMPARISON: None FINDINGS: Heart normal in size. Lungs are clear. No free air. XR/XR chest 2V IMPRESSION: NO ACUTE CARDIOPULMONARY ABNORMALITY. Impression dictated by: Jerad Amos Jr., D.O. 05/05/2025 9:51 AM Dictation Location: [facility] Electronically authenticated by: [id number] Y Date: 05/05/2025 09:51 Dictated By: Jerad Amos M.D. Signed By: 05/05/2554 DD/ 0 TD/TT: User Interface Engineer: [place] [address] XRay Report Signed Patient: KJ NICOLAS MR#: [id number] : 1975 Acct:[id number] Age/Sex: 49 / M ADM Date: 05/04/25 Loc: RAD Attending Dr: Brigitte Wylie M.D. Ordering Physician: Jordan Wylie M.D. Date of Service: 05/04/25 Procedure(s): XR [address] 2V Accession Number(s): [id number] cc: Jordan Wylie M.D. [place] [address] Patient Name: KJ NICOLAS MRN: [id number] date: 1975 Sex: M Assigned Patient Location: RAD Current Patient Location: Accession/Order Numb er: [id number] Exam Date: 05/05/2025 09:51 Report Date: 05/05/2025 09:51 At the request of: JORDAN WYLIE MD Procedure: XR chest 2V Chest 2 views CLINICAL HISTORY: Ch est wall pain COMPARISON: None FINDINGS: Heart normal in size . Lungs are clear. No free air. XR/XR chest 2V IMPRESSION: NO ACUTE CARDIOPULMONARY ABNORMALITY. Impression dictated by: Jerad Amos Jr., D.O. 05/05/2025 9:51 AM Dictation Location: [facility] Electronically authenticated by: [id number] Y Date: 05/05/2025 09:51 Dictated By: Jerad Amos M.D. Signed By: 05/05/2554 DD/ TD/TT: User Interface Engineer: CBC AUTO DIFF Reviewed date:11/27/2024 09:16:11 AM Interpretation: Performing Lab: Notes/Report: [facility] , White Blood Count 4.9 4.0-11.0 [...] Performing Lab: see note ML - [facility] LB CT head/brain wo con Reviewed date:07/28/2024 06:57:32 PM Interpretation: Performing Lab: Notes/Report: Source Facility: [facility], [place] [address] [address] [address] Scan Report Signed Patient: KJ NICOLAS MR#: [id number] : 1975 Acct:[id number] Age/Sex: 48 / M ADM Date: 07/28/24 Loc: CT Attending Dr: Jordan Wylie M.D. Ordering Physician: Jordan Wylie M.D. Date of Service: 07/28/24 Procedure(s): CT head/brain wo con Accession Number(s): [id number] cc: Jordan Wylie M.D. [address] [address] Patient Name: KJ NICOLAS MRN: [id number] date: 1975 Sex: M Assigned Patient Location: CT Current Patient Location: CT Accession/Order Number: [id number] Exam Date: 07/28/2024 12:54 Report Date: 07/28/2024 [...] DANA SEGAL M.D. Signed By: 07/28/241845 DD/ 1844 TD/TT: User Interface Engineer: [place] [address] CT Scan Report Signed Patient: KJ NICOLAS MR#: [id number] : 1975 Acct:[id number] Age/Sex: 48 / M ADM Date: 07/28/24 Loc: CT Attending Dr: Brigitte Wylie M.D. Ordering Physician: Jordan Wylie M.D. Date of Service: 07/28/24 Procedure(s): CT head/brain wo con Accession Number(s): [id number] cc: Jordan Wylie M.D. [place] [address] Patient Name: KJ NICOLAS MRN: [id number]:[id number] date: 1975 Sex: M Assigned Patient Location: CT Current Patient Location: CT Accession/Order Numb er: [id number] Exam Date: 12:54 Report Date: 07/28/2024 18:44 At the request of: JORDAN WYLIE Procedure: CT head/brain wo con EXAM: CT head/brain wo con HISTORY: migraine G43.909 COMPARISON: None. TECHNIQUE: Axial CT scans through the head were obtained without IV contrast administration. Dose reduction techniques were achieved by using: automated exposure control and /or adjustment of mA and /or kV according to patient size and/or use of iterat barbara reconstruction technique. FINDINGS: There is no acute [...] Dictated By: LAURENCE SEGAL M.D. Signed By: 07/28/24 1846 DD/ 43 TD/TT: User Interface Engineer: XR ribs LT 2V Reviewed date:05/04/2025 07:03:37 PM Interpretation: Performing Lab: Notes/Report: Source Facility: [place] [address] [place] [address] XRay Report Signed Patient: KJ NICOLAS MR#: [id number] : 1975 Acct:[id number] Age/Sex: 49 / M ADM Date: 05/04/25 Loc: RAD Attending Dr: Jordan Wylie M.D. Ordering Physician: Jordan Wylie M.D. Date of Service: 05/04/25 Procedure(s): XR ribs LT 2V Accession Number(s): [id number] cc: Jordan Wylie M.D. The [place] [address] Patient Name: KJ NICOLAS MRN: [id number] date: 1975 Sex: M Assigned Patient Location: [facility] Current Patient Location: [facility] Accession/Order Number: [id number] Exam Date: 05/04/2025 15:19 Report Date: 05/04/2025 15:20 At the request of: JORDAN WYLIE MD Procedure: XR ribs LT 2V Single view chest with 4 views left RIBS Reason for exam: Chest wall pain. COMPARISON: None. FINDINGS: Heart normal in size. Lungs are clear. No free air. No displaced left-sided rib fracture is seen. XR/XR ribs LT 2V IMPRESSION: No acute process. Impression dictated by: Jerad Amos Jr., D.O. 05/04/2025 3:20 PM Dictation Location: [place] [address] Electronically authenticated by: [id number] Y Date: 05/04/2025 15:20 Dictated By: Jerad Amos M.D. Signed By: 05/04/25 1522 DD/ 19 TD/TT: User Interface Engineer: The [address] [address] XRay Report Signed Patient: KJ NICOLAS MR#: [id number] : 1975 Acct:[id number] Age/Sex: 49 / M ADM Date: 05/04/25 Loc: RAD Attending Dr: Brigitte Wylie M.D. Ordering Physician: Jordan Wylie M.D. Date of Service: 05/04/25 Procedure(s): XR rib s LT 2V Accession Number(s): [id number] cc: Jordan Wylie M.D. [address] [address] Patient Name: KJ NICOLAS MRN: [id number] date: 1975 Sex: M Assigned Patient Location: [facility] Current Patient Location: [facility] Accession/Order Numb er: [id number] Exam Date: 05/04/2025 15:19 Report Date: 05/04/2025 15:20 At the request of: JORDAN WYLIE MD Procedure: XR ribs L T 2V Single view chest wi th 4 views left RIBS Reason for exam: [address] st wall pain. COMPARISON: None. FINDINGS: Heart norm al in size. Lungs are clear. No free air. No displaced left-sided rib fract ure is seen. XR/XR ribs LT 2V IMPRESSION: No acute process. Impression dictated by: Jerad Amos Jr., D.O. 05/04/2025 3:20 PM Dictation Location: [place] [address] Electronically authenticated by: [id number] Y Date: 05/04/2025 15:20 Dictated By: Jerad Amos M.D. Signed By: 05/04/25 1522 DD/ 1520 TD/TT: User Interface Engineer: LIN SHRESTHA ([id number]) - IN OFFICE Reviewed date:05/04/2025 07:03:37 PM Interpretation: Performing Lab: Notes/Report: COLOR yellow GLUCOSE NEG BILIRUBIN NEG KETONE NEG SPECIFIC GRAVITY 1.015 BLOOD NEG PH 6 PROTEIN TRACE UROBILINOGEN 4 NITRITE NEG LEUKOCYTE ESTERASE TRACE URIC ACID SERUM Reviewed date:11/27/2024 09:16:11 AM Interpretation: Performing Lab: Notes/Report: [facility] , Uric Acid 4.5 3.5-7.2 mg/dL Performing Lab: see note ML - [facility] LB TSH Reviewed date:11/27/2024 09:16:11 AM Interpretation: Performing Lab: Notes/Report: [facility] , Thyroid Stimulating Hormone 1.399 0.358-3.740 uIU/mL Performing Lab: see note ML - [facility] LB T4 Reviewed date:11/27/2024 09:16:11 AM Interpretation: Performing Lab: Notes/Report: [facility] , T4 Thyroxine 6.30 4.50-12.10 ug/dL Performing Lab: see note ML - [facility] LB PSA SCREENING Reviewed date:11/27/2024 09:16:11 AM Interpretation: Performing Lab: Notes/Report: [facility] , Prostate Specific Antigen Scrn 0.39 <=4.00 ng/mL Performing Lab: see note ML - [facility] LB PROF 14(COMP METB) Reviewed date:11/27/2024 09:16:11 AM Interpretation: Performing Lab: Notes/Report: [facility] , Sodium 131 136-145 mmol/L Potassium [...] Performing Lab: see note ML - [facility] LB LIPID PROFILE Reviewed date:11/27/2024 09:16:11 AM Interpretation: Performing Lab: Notes/Report: [facility] , Triglycerides 112 <=150 mg/dL Cholesterol [...] RISK Performing Lab: see note ML - [facility] INSULIN Reviewed date:11/27/2024 12:34:17 PM Interpretation: Performing Lab: Notes/Report: [facility] , Insulin 13.9 2.6-24.9 uIU/mL Performed at: [facility] [address] [id number] Head Cager: Wade Cherry PhD, Phone: [phone] Performing Lab: see note - [facility] FREE T3 Reviewed date:11/27/2024 09:16:11 AM Interpretation: Performing Lab: Notes/Report: [facility] , Free T3 1.26 2.18-3.98 pg/mL Performing Lab: see note ML - [facility] Reason For Referral Diagnosis 1 Nevus (D22.9) Referral Organization [facility] Referring Provider First Name Jose Referring Provider Last Name La Referring Provider Speciality [facility] mehrdad Referred Provider Kirby Li Referred Provider [...] Administration Date Status Comme nts Flu, Flucelvax (0899-7245) (95709) 6 mos +, single-dose syringe IM Intramuscular 07/27/2023 Administered Flu, Flucelvax (03432) 6 mos and older, single-dose syringe IM [...] W/U Status Risk Notes Problem Impacted cerumen (05031951) Impacted cerumen, right ear (H61.21) Active confirmed Problem Impacted cerumen (51184006) Impacted cerumen, left ear (H61.22) Active confirmed Problem Otitis media (76029247) Otitis media, unspecified, unspecified ear (H66.90) Active confirmed Problem Recurrent acute sinusitis (452019164) Acute recurrent pansinusitis (J01.41) Active confirmed Problem 313153783 Other seasonal allergic rhinitis (J30.2) Active confirmed Problem Allergic rhinitis (71239485) Allergic rhinitis, unspecified (J30.9) Active confirmed Problem 60980613 Chronic sinusiti s, unspecified (J32.9) Active confirmed Problem 8854405239496134 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) Active confirmed Problem 7171192483785559 Other instabili ty, 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) Active confirmed Problem Hand pain (81242832) Pain in unspecified hand (M79.643) Active confirmed Problem 079772341605506 Pain in right fo ot (M79.671) Active confirmed Problem 53730783 Dysphagia, unspecified (R13.10) Active confirmed Problem Contusion of knee (26805105) Contusion of unspecified knee, initial encounter (S80.00XA) Active confirmed Problem Sprain of left knee (27419024415557390) Sprain of other specified parts of left knee, initial encounter (S83.8X2A) Active confirmed Problem Sprain of ankle (50769337) Sprain of unspecified ligament of unspecified ankle, initial encounter (S93.409A) Active confirmed Problem Other allergy status, other than to drugs and biological substances (Z91.09) Active confirmed Problem Wart (60394600) Wart (B07.9) Active confirmed Problem Gastroesophageal reflux disease (502381886) GERD (gastroesophageal reflux disease) (K21.9) Active confirmed Problem Knee pain (9344097735) Knee pain (M25.569) Active confirmed Problem Migraine (63031997) Migraine (G43.909) Active c onfirmed Problem Back pain (373829453) Back pain (M54.9) Active confirmed Problem 11004209 Migraine without status migrainosus, not intractable, unspecified migraine type (G43.909) Active confirmed Problem Acute sinusitis (21852842) Acute sinusitis (J01.90) Active confirmed Problem Allergic rhinitis (92496446) Allergic rhinitis (J30.9) Active confirmed Problem Chronic sinusitis (53748854) Chronic sinusitis (J32.9) Active confirmed Problem Well adult (119064116) Well adult (Z00.00) Active confirmed Problem Dysphagia (99460605) Dysphagia (R13.10) Active confirmed Problem Lymphadenopathy (29744919) Lymphadenopathy (R59.1) Active confirmed Problem Seasonal allergic rhinitis (652057128) Seasonal allergic rhinitis (J30.2) Active confirmed Problem Pain in limb (16206391) Foot pain, right (M79.671) Active confirmed Problem Diverticulitis (33515968) Diverticulitis (K57.92) Active confirmed Problem Chest wall pain (342689526) Chest wall pain (R07.89) Active confirmed Problem Contact dermatitis (27063892) Contact dermatitis (L25.9) Active confirmed Problem Constipated (49091447) Constipated (K59.00) Active confirmed Problem Internal derangement of right knee (37595083810194956) Internal derangement of right knee (M23.91) Active confirmed Problem 965896771 Cognitive developmental delay (F81.9) Active confirmed Problem History and physical examination, sports participation (699010561) Sports physical (Z02.5) Active confirmed Problem Seizure (66409600) Seizure (R56.9) Active confi rmed Problem Sensorineural hearing loss (87041446) Hearing loss, sensorineural (H90.5) Active confirmed Problem Contusion of hand (2924797) Contusion, hand (S60.229A) Active confirmed Problem Arthralgia of the pelvic region and thigh (562277627) Hip pain, acute, right (M25.551) Active confirmed Problem Disorder of sacrum (67614946) Low back derangement syndrome (M53.86) Active confirmed Problem Osteoarthritis of knee (225654084) Knee osteoarthritis (M17.10) Active confirmed Problem 772268932 Encounter for immunotherapy (Z29.8) Active confirmed Problem 264756302 Cerebral seizure (G40.909) Active confirmed Problem Low back pain (finding) (064843894) Back pain, lumbosacral (M54.50) Active confirmed Vital Signs Temperature 98.3 degrees Fahrenheit 04/21/2025 Blood pressure diastolic 70 mm Hg 05/04/2025 Height 71 in 05/04/2025 Blood pressure systolic 124 mm Hg 05/04/2025 Weight 194.4 lbs 05/04/2025 BMI 27.11 kg/m2 05/04/2025 Encounters Encounter Location Date Provider Diagnosis [facility] [address] [place] [address] 05/19/2024 Jose Wylie Seasonal allergic rhinitis J30.2 and Encounter for other specified prophylactic measures Z29.89 [facility] [address] [place] [address] 06/01/2024 Jose Hoy Encounter for other specified prophylactic measures Z29.89 [facility] [address] [place] [address] 06/15/2024 Jose Hoy Acute sinusitis J01. 90 and Encounter for other specified prophylactic measures Z29.89 [facility] [address] [place] [facility] [place] [address] 06/29/2024 Jose Hoy Knee osteoarthritis M17.10 and Encounter for other specified prophylactic measures Z29.89 [facility] [address] [place] [address] 07/13/2024 Jose Hoy Encounter for immunization Z23 and Encounter for other specified prophylactic measures Z29.89 [facility] [address] [place] [address] 08/04/2024 Jose Hoy Allergic rhinitis, unspecified J30.9 and Encounter for other specified prophylactic measures Z29.89 [facility] [address] [place] [address] 08/22/2024 Jose Hoy Other seasonal aller gic rhinitis J30.2 and Encounter for other specified prophylactic measures Z29.89 [facility] [address] [place] [address] 09/08/2024 Jose Hoy Allergic rhinitis J3 0.9 and Encounter for immunotherapy Z29.8 [facility] [address] [place] [address] 09/19/2024 Jose Hoy Chronic sinusitis, unspecified J32.9 and Encounter for other specified prophylactic measures Z29.89 [facility] [address] [place] [address] 06/08/2024 Jose Hoy [facility] [address] [place] [place] [address] 06/15/2024 Jose Hoy Nevus D22.9 [facility] [address] [place] [address] 06/21/2024 Jose Hoy Migraine G43.909 [facility] [address] [place] [address] 06/23/2024 Jose Hoy Foreign body (FB) in soft tissue M79.5 [facility] [address] [place] [address] 07/04/2024 Jose Hoy Knee pain, right M25 .561 [facility] [address] [place] [facility] [place] [address] 07/06/2024 Jose Hoy Migraine G43.909 and Knee osteoarthritis M17.10 [facility] [address] [place] [place] [address] 07/28/2024 Jose Hoy [facility] [address] [place] [address] 10/06/2024 Jose Hoy Seasonal allergic rhinitis J30.2 and Encounter for other specified prophylactic measures Z29.89 [facility] [address] [place] [address] 10/19/2024 Jose Hoy Other allergy status , other than to drugs and biological substances Z91.09 and Encounter for other specified prophylactic measures Z29.89 [facility] [address] [place] [address] 10/26/2024 Jose Hoy [facility] [address] [place] [address] 11/03/2024 Jose Hoy Acute bronchiolitis J21.9 ; Cerebral seizure G40.909 and Encounter for other specified prophylactic measures Z29.89 [facility] [address] [place] [address] 11/16/2024 Jose Hoy Encounter for immunotherapy Z29.8 ; Low back derangement syndrome M53.86 and Well adult Z00.00 [facility] [address] [place] [address] 11/22/2024 Jose Hoy [facility] [address] [place] [address] 11/27/2024 Jose Hoy Other specified abno rmal findings of blood chemistry R79.89 [facility] [address] [place] [address] 11/28/2024 Jose Hoy Other allergy status , other than to drugs and biological substances Z91.09 and Encounter for other specified prophylactic measures Z29.89 [facility] [address] [place] [address] 11/29/2024 Jose Hoy [facility] [address] [place] [address] 12/12/2024 Jose Hoy Encounter for other specified prophylactic measures Z29.89 and Acute bronchitis, unspecified organism J20.9 [facility] [address] [place] [address] 12/12/2024 Jose Hoy Acute bronchitis, unspecified organism J20.9 [facility] [address] [place] [address] 12/26/2024 Jose Hoy [facility] [address] [place] [address] 12/26/2024 Jose Hoy [facility] [address] [place] [address] 12/28/2024 JORDAN HOY Allergic rhinitis J3 0.9 ; Seasonal allergic rhinitis J30.2 and Encounter for other specified prophylactic measures Z29.89 [facility] [address] [place] [place] [address] 01/09/2025 Jose Hoy Seasonal allergic rhinitis J30.2 and Encounter for other specified prophylactic measures Z29.89 [facility] [address] [place] [address] 02/01/2025 Jose Hoy Seasonal allergic rhinitis J30.2 and Encounter for other specified prophylactic measures Z29.89 [facility] [address] [place] [address] 02/24/2025 Jose Hoy Encounter for immunotherapy Z29.8 [facility] [address] [place] [address] 03/09/2025 Jose Hoy Other allergy status , other than to drugs and biological substances Z91.09 and Encounter for other specified prophylactic measures Z29.89 [facility] [address] [place] [place] [address] 03/24/2025 Jose Hoy Seasonal allergic rhinitis J30.2 and Encounter for other specified prophylactic measures Z29.89 [facility] [address] [place] [address] 03/28/2025 Jose Hoy Knee pain M25.569 an d Knee pain, right M25.561 [facility] [address] [place] [address] 04/05/2025 Jose Hoy Knee pain, right M25 .561 and Knee pain, left M25.562 [facility] [address] [place] [address] 04/12/2025 Jose Hoy Wart B07.9 and Encou nter for other specified prophylactic measures Z29.89 [facility] [address] [place] [address] 04/12/2025 Jose Hoy [facility] [address] [place] [address] 04/14/2025 Jose Hoy Frequency R35.0 and Acute UTI N39.0 [facility] [address] [place] [address] 04/21/2025 Jose Hoy Diverticulitis K57.9 2 [facility] [address] [place] [address] 04/21/2025 Jose Hoy [facility] [address] [place] [address] 04/26/2025 Jose Hoy [facility] [address] [place] [address] 04/26/2025 Jose Hoy Encounter for other specified prophylactic measures Z29.89 [facility] [address] [place] [facility] [place] [address] 04/26/2025 Jose Hoy Knee pain, right M25 .561 and Left knee pain M25.562 [facility] [address] [place] [address] 05/04/2025 Jose Hoy Chest wall pain R07. 89 [facility] [address] [place] [address] 05/04/2025 Jose Wylie [facility] [address] [place] [address] 05/07/2025 Jose Wylie [facility] [address] [place] [address] 05/16/2025 Jose Wylie Flank pain R10.9 Assessments Encounter Date Diagnosis (ICD Code) Assessment Notes Treatment Notes Treatment Clinical Notes Section Notes 05/19/2024 Seasonal allergic rhinitis (ICD-10 - J30.2) [...] Knee pain, left (ICD-10 - M25.562) 04/26/2025 Left knee pain (ICD-10 - M25.562) 04/26/2025 Knee pain, right (ICD-10 - M25.561) 05/16/2025 Flank pain (ICD-10 - R10.9) 09/19/2024 Chronic sinusitis, unspecified (ICD-10 - J32.9) [...] 11/03/2024 Cerebral seizure (ICD-10 - G40.909) 11/16/2024 Well adult (ICD-10 - Z00.00) 11/16/2024 Low back derangement syndrome (ICD-10 - M53.86) 11/16/2024 Encounter for immunotherapy (ICD-10 - Z29.8) 11/28/2024 Other allergy status, other than to drugs and biological substances (ICD-10 - Z91.09) 11/28/2024 Encounter for other specified prophylactic measures (ICD-10 - Z29.89) 12/12/2024 Acute bronchitis, unspecified organism (ICD-10 - J20.9) 12/12/2024 Encounter for other specified prophylactic measures (ICD-10 - Z29.89) 12/28/2024 Allergic rhinitis (ICD-10 - J30.9) 12/28/2024 [...] vaporizer to help keep the drainage moist. Ezhi-fvx-qtainbr Nasal Saline may help the stuffy and runny nose. Use Ibuprofen and or Tylenol as needed for fever, chills, body aches or pain. Children 5 years old should not be given indu-ayx-vpoyxyv cough and cold medications such as guaifenesin and dextromethorphan. If you're over age 5, you may try nddr-nlr-mcqmnpq cold medications such as guaifenesin and dextromethorphan, [...] Name Order Date CMP (COMPLETE METABOLIC PANEL) UA (URINALYSIS, COMPLETE) 05/16/2025 HEMOGLOBIN A1C (GLYCO) 11/16/2024 INSULIN, TOTAL 11/16/2024 [...] Brain w/o Contrast 06/21/2024 CULTURE URINE 08/26/2023 CULTURE URINE 05/16/2025 ANDREA-MARTINEZ VIRUS (EBV) AB PROFILE 03/06 MONO 03/28/2024 URINE MICROSCOPIC ONLY 05/16/2025 CT SINUSES WO CON 01/12/2024 US APPENDIX 04/09/2023 XR CHEST 2 V 05/04/2025 XR HIP RT 2 3V W PELVIS 08/26/2023 XR LSPINE MIN 4 VIEWS 11/16/2024 XR MODIFIED BARIUM SWALLOW 01/12/2024 XR SINUSES 3 VIEWS OR GREATER 01/25/2024 THYROID PANEL (T4/TSH/FREE T3) THYROID PANEL (T4/TSH/FREE T3) XR HIP RT 2 3V W PELVIS 11/16/2024 XR pelvis 1-2V 06/23/2024 CT KNEE RIGHT WO CONTRAST 07/06/2024 CMP (COMP MET EDWARDS) w/eGFR CKD-EPI 2024 Insurance Providers Payer Name Payer Address Payer Phone Subscriber Number Group Number Insured Name Patient Relationship to Insured Coverage Start Date Coverage End Date [employer] [address] [place], [place] [id number] RoelKj zamora Self - patient is the insured MEDICAID [place] 2ND INS [address] [place], [place] [id number] RoelKj zamora Self - patient is the insured Medications [...]
[2025-05-16 12:54] LABS: Glucose Urine UA NEGATIVE (NEGATIVE)
[2025-05-16 13:08] LABS: Cast Seen? NONE SEEN #/LPF (NONE SEEN); Crystals Seen? None Seen #/HPF (None Seen); Urine Culture Indicated ALREADY ORDERED
== END 2025-05-16 12:24 | disposition home or self-care (01) ==
LOC: LAB 12:23
PROVIDERS: PCP Family Medicine; Visit Provider Family Medicine
DX: R10.9 Unspecified abdominal pain (principal)
CPT/HCPCS: 81001; 87086

== ENCOUNTER 2025-08-30 09:10 | Outpatient (OUT) | payer MEDICARE, MEDICAID, SELFPAY ==
--- OUTSIDE RECORDS SUMMARY | 2025-06-22 10:15 | XMS_ITS ---
Author Organization [facility] in [place] Address [address] [place] [address] Care Team Providers Care Cargo Service Supervisor Name Role Phone Jose Tovar Primary Care Provider [phone] Encounters Encounter Location Date Provider Diagnosis [facility] [address] [place] [address] 06/22/2025 Jose Tovar Plan Of Treatment No Information Progress Notes * MARIA ISABELLuis Fernando Thao RDOB:1975 ( 49 yo M)Acc No.[id number]:06/22/2025 UNLOCKED PROGRESS NOTE Progress Note Patient: Luis Fernando LAU :?Bertrand Tovar (ERIC), MDDOB:1975???Age: 49 Y???Sex:MaleDate:06/22/2025Phone:[phone]:[address] [facility] Subjective: * Chief Complaints: * * Medical History: Objective: * Vitals: Assessment: Plan: * Treatment: * * Electronic signature of Jose Tovar MD, [id number] on 08/30/2025 at 09:12 AM EST Sign off status: PendingVisit Status:?CANC (Cancelled) * Provider: Rex Tovar MD (TTC) Date: 0 06/22/2025 Generated for Printing/Faxing/eTransmitting on:?08/30/2025 09:12 AM EST
--- OUTSIDE RECORDS SUMMARY | 2025-08-23 06:15 | XMS_ITS ---
Author Organization [facility] in [place] Address [address] [place] [address] Care Team Providers Care White Hat Hacker Name Role Phone Jose Tovar Primary Care Provider [phone] Allergies No Known Allergies REASON FOR VISIT ALLERGY injections given, Migraines, Spot in middle of back would like checked out Medications Medication SIG (Take, Route, Frequency, Duration) Notes Start Date End Date Status Cetirizine HCl 10 MG TAKE 1 TABLET (10 M G) BY MOUTH DAILY NEEDED FOR ALLERGIES; Duration: 90 ActiveDiclofenac Sodium 75 MGTAKE 1 TABLET BY MOUTH TWICE A DAY NEEDED FOR 30 DAYS; Duration: 14 daysActiveFenofibrate 145 MGTAKE 1 TABLET BY MOUTH EVERY DAY; Duration: 90ActiveFluticasone Propionate 50 MCG/ACTUSE 1 SPRAY INTO EACH NOSTRIL TWICE A DAY; Duration: 30ActiveAzelastine HCl 0.05 %INSTILL 1 DROP INTO AFFECTED EYE TWICE A DAY; Duration: 45ActiveTriamcinolone Acetonide 0.1 %1 application Externally Two times a WeekActiveTrileptal 600 MG1 tablet Orally Twice a day ActiveVirasal 27.5 %1 application as needed Externally Once a day04/12/2025 ActiveCefdinir 300 MG2 capsule Orally once a day; Duration: 10 days08/23/2025 ActivetiZANidine HCl 4 MG2 tabs Orally qhs; Duration: 30 days5Active Pantoprazole Sodium 40 MGTAKE 1 TABLET BY MOUTH EVERY DAY IN THE EVENING; Duration: 30ActiveDoxycycline Monohydrate 100 MG1 tablet Orally bid; Duration: 10 days5ActiveGabapentin 300 MG1 capsule Orally TIDActiveKetoconazole 2 %1 application Externally bid; Duration: 14 days5Active Social History Tobacco Use: Social History Observation Description Date Details (start date - stop date) Never Smoker NA - NA Tobacco Use/Smoking Question Answer Notes Patient is a nonsmoker Vital Signs Blood pressure systolic 114 mm Hg 08/23/20 25 Blood pressure diastolic 86 mm Hg 025 Height 71 in 08/23/2025 Weight 195.8 lbs 08/23/2025 BMI 27.31 kg/m2 08/23/2025 Encounters Encounter Location Date Provider Diagnosis [facility] [address] [place] [address] 08/23/2025 Jose Tovar Chronic sinusitis J3 2.9 ; Encounter for other specified prophylactic measures Z29.89 and Boil L02.92 Assessments Encounter Date Diagnosis (ICD Code) Assessment Notes Treatment Notes Treatment Clinical Notes Section Notes 08/23/2025 Chronic sinusitis (ICD-10 - J32. 9) 08/23/2025Encounter for other specified prophylactic measures (ICD-10 - Z29.89) 08/23/2025oil (ICD-10 - L02.92) Plan Of Treatment Medication Medication Name Sig Start Date Stop Date Notes Cefdinir 300 MG 2 capsule Orally once a day; Duration: 10 days 08/23/2025 Doxycycline Monohydrate 100 MG1 tablet Orally bid; Duration: 10 days08/23/2025 Pending Test Test Name Order Date CT sinus w con 08/23/2025 Procedure Notes * CategorySub-CategoryDetailNotesAllergyAllergy ShotAdministeredVial AAllergy: os* Formulation:restart1, Expires:05/08/26, Arm: leftVial BFormulation:restart, Allergies:os Expires:05/09/25, Arm: right Epinephrin drawn up and released before drawing up solution per hammer shop supervisor Progress Notes * Luis Fernando NICOLAS RDOB:1975 ( 49 yo M)Acc No.[id number]:08/23/2025 Progress Note Patient: Luis Fernando LAU :?Bertrand Tovar ([facility]), MDDOB:1975???Age: 49 Y???Sex:MaleDate:08/23/2025Phone:[phone]:[address], [id number] In:11:00 AM ESTCheck Out:12:03 PM EST Subjective: * Chief Complaints: * A LLERGY injections givenMigrainesSpot in middle of back would like checked out * HPI: ???General:?Patient presents today for allergy injection boil on back. * ROS: ???EENT:?hearing changes?denies.?visual changes?denies. non-healing mouth sores?denies.?swollen glands or neck lumps?denies.?hoarseness?denies.?sore throat?denies.?difficulty swallowing?denies.?nose bleeds?denies.?nasal congestion?denies.?ear ache?denies.?ear discharge denies.?ringing in ears?denies.?light sensitivity?denies.?eye pain?denies.?blurring?denies.?eye irritation?denies.?double vision?denies. vision loss?denies.?General/Constitutional:?Sweats:?Denies.?Fatigue?denies.?Sleep proble ms?denies.?Anorexia?denies.?Malaise?denies.?Weight loss?denies. Fatigue or Weakness?denies.?Fever or Chills?denies.?Cardiovascular:?Shortness of Breath w/lying flat?denies.?Lightheadedne ss/dizziness?denies.?Chest tightness/ heavy pressure?denies.?Swelling of legs, a nkles, or feet?denies.?Waking up with shortness of breath?denies.?Chest pain&#16 0;denies.?Palpitations?denies.?Weight gain?denies.?Respiratory:?Chronic or frequent cough?denies.?Coughing up blood&#1 60;denies.?Difficulty breathing?denies.?Productive cough?denies.?Snoring&#1 60;denies.?Shortness of breath that awakens from sleep (PND)?denies.?Chest pain? denies.?Sputum production?denies.?Wheezing?denies.?Musculoskeletal:?Joint pain?denies.?Joint Fluid?denies.?Backpain?denies.?Knee pain?denies.?Neck pain?denies.?Joint Stiffness?denies.?Muscle cramps?denies.?Weakness of muscles?denies.?Arthritis?denies.?Muscle aches?denies.?Pain in shoulder(s)?denies.?Swollen joints?denies.? * Active Problem List H61.22 Impacted cerumen, le ft ear Modified On:02/20/2023 Status:hzhzbppgnW08.90Otitis media, unspecified, unspecified ear Modified On:06/29/2023 Status:sumudtmprJ04.41Acute recurrent pansinusitis Modified On:09/16/2023 Status:uxseonvmhI26.21Impacted cerumen, right ear Modified On:02/20/2023 Status:zluaqfasxO73.643Pain in unspecified hand Modified On:02/20/2023 Status:xsdwkpithZ11.00XAContusion of unspecified knee, initial encounter Modified On:02/20/2023 Status:gfybdmvkqW23.5S7RCkxqcp of other specified parts of left knee, initial encounter Modified On:02/20/2023 Status:dxogjdoeiQ72.409ASprain of unspecified ligament of unspecified ankle, initial encounter Modified On:02/20/2023 Status:gvgihpcniG84.9Back pain Modified On:02/20/2023 Status:fqjxebekqB08.00Well adult Modified On:02/20/2023 Status:vempatasaA60.10Dysphagia Modified On:02/20/2023 Status:stbuyvfbuB17.2Seasonal allergic rhinitis Modified On:10/26/2023 Status:mqjbyupnoQ48.671Foot pain, right Modified On:02/20/2023 Status:nsmzwnuxqC88.9Contact dermatitis Modified On:02/20/2023 Status:nfocompynK96.91Internal derangement of right knee Modified On:02/20/2023 Status:vqvfxofjgI42.5Sports physical Modified On:02/20/2023 Status:sofnffwwhR26.9Seizure Modified On:02/20/2023 Status:gfcpmiqtsU63.5Hearing loss, sensorineural Modified On:03/11/2023 Status:lnrfpkvozX42.229AContusion, hand Modified On:02/20/2023 Status:aejiqpvrnH19.50Back pain, lumbosacral Modified On:02/20/2023 Status:ekmklgxzrJ43.9Allergic rhinitis Modified On:09/15/2023 Status:mbxhaptlrZ14.9Allergic rhinitis, unspecified Modified On:12/20/2022 Status:hnfgfynmoL07.909Cerebral seizure Modified On:01/16/2023 Status:vosnurxhaI79.909Migraine without status migrainosus, not intractable, unspecified migraine type Modified On:01/16/2023 Status:mkmyrunweT83.9Cognitive developmental delay Modified On:01/16/2023 Status:nnapnbeccF10.2Other seasonal allergic rhinitis Modified On:10/22/2023 Status:vxbonozoiW05.09Other allergy status, other than to drugs and biological substances Modified On:01/08/2024 Status:xfaawptrmM50.00Constipated Modified On:05/13/2023 Status:rmfrkyfvlN70.86Low back derangement syndrome Modified On:05/13/2023 Status:wfdpldgbyR90.671Pain in right foot Modified On:05/26/2023 Status:kvkmbqvreM83.6V3Qaikj acquired deformities of right foot Modified On:07/28/2023 Status:rssicyosdG37.371Other instability, right ankle Modified On:07/28/2023 Status:ttawuqkitD39.551Hip pain, acute, right Modified On:11/29/2023W/U Status:rsnhoblhpN78.9GERD (gastroesophageal reflux disease) Modified On:12/11/2023 Status:qblofsyraJ65.9Chronic sinusitis Modified On:01/13/2024 Status:voafkzxyxB20.10Dysphagia, unspecified Modified On:01/13/2024 Status:iuobdditeK65.9Chronic sinusitis, unspecified Modified On:02/01/2024 Status:ffrlfyizyI54.1Lymphadenopathy Modified On:03/28/2024 Status:jvegnijruW23.90Acute sinusitis Modified On:06/15/2024 Status:afayjmnbcY46.909Migraine Modified On:06/21/2024 Status:mpbgduojiS46.8Encounter for immunotherapy Modified On:06/29/2024 Status:xnnkyfcdjH19.10Knee osteoarthritis Modified On:06/29/2024 Status:dhibyuuipP55.569Knee pain Modified On:03/28/2025 Status:vhbikggnhC09.9Wart Modified On:04/12/2025 Status:twoyevzthY13.92Diverticulitis Modified On:04/21/2025 Status:tmnuqlrmrO51.89Chest wall pain Modified On:05/04/2025 Status:iubpoopfyJ13.6Tinea cruris Modified On:06/22/2025 Status:confirmed * Medical History: * Surgical History: F oot Surgery- Right 2006 * Hospitalization/Major Diagno stic Procedure: s ee above * Family History: F ather: unknown. M other: alive, type II diabetes, diagnosed with Cancer, Diabetes. B rother(s): alive. 1 brother(s) - healthy. . * Social History: ???Tobacco Use:?Tobacco Use/Smoking?Patient is a?nonsmoker * Medications: T akingAzelastine HCl 0.05 % Solution INSTILL 1 DROP INTO AFFECTED EYE TWICE A DAY Cetirizine HCl 10 MG Tablet TAKE 1 [...] 300 MG Capsule 1 capsule Orally TID Ketoconazole 2 % Cream 1 application Externally bid Pantoprazole Sodium 40 MG Tablet Delayed Release TAKE 1 TABLET BY MOUTH EVERY DAY IN THE EVENING tiZANidine HCl 4 MG Tablet 2 tabs Orally qhs Triamcinolone Acetonide 0.1 % Cream 1 application Externally Two times a Week Trileptal(OXcarbazepine) 600 MG Tablet 1 tablet Orally Twice a day Virasal(Salicylic Acid) 27.5 % Liquid 1 application as needed Externally Once a day Taking Azelastine HCl 0.05 % Solution INSTILL 1 DROP INTO AFFECTED EYE TWICE A DAY Taking Cetirizine HCl 10 MG Tablet TAKE [...] MG Capsule 1 capsule Orally TID Taking Ketoconazole 2 % Cream 1 application Externally bid Taking Pantoprazole Sodium 40 MG Tablet Delayed Release TAKE 1 TABLET BY MOUTH EVERY DAY IN THE EVENING Taking tiZANidine HCl 4 MG Tablet 2 tabs Orally qhs Taking Triamcinolone Acetonide 0.1 % Cream 1 application Externally Two times a Week Taking Trileptal(OXcarbazepine) 600 MG Tablet 1 tablet Orally Twice a day Taking Virasal(Salicylic Acid) 27.5 % Liquid 1 application as needed Externally Once a day DiscontinuedDiflucan 100 MG Tablet 1 tablet Orally daily metroNIDAZOLE 500 MG Tablet 1 tablet Orally Three times a day Cfpmgryd-Nwawxzjoy-Vnictowi 3.5-95748-3.1 Suspension 1 drop into affected eye Ophthalmic Four times a day Medication List reviewed and reconciled with the patientDiscontinued Diflucan 100 MG Tablet 1 tablet Orally daily Discontinued metroNIDAZOLE 500 MG Tablet 1 tablet Orally Three times a day Discontinued Fuaihxmj-Znadzhmte-Fzrfufvl 3.5-29355-6.1 Suspension 1 drop into affected eye Ophthalmic Four times a day Medication List reviewed and reconciled with the patient * Allergies: N .K.D.A.no[Allergies Verified] Objective: * Vitals: W t:195.8lbs, Ht: 71 in, BP:114/86mm Hg, BMI:27.31Index, Ht-cm: 180.34 cm, Wt-k.81 kg. * Examination: ???Physical Exam: ?GENERAL:?well developed, well nourished, in no acute distress.?HEAD:?normocephalic/atraumatic.?EYES:?pupils equal, round and reactive to light, conjunctivae and sclerae normal.?EARS:?no deformity or lesion of external ear, canals and TM appear normal bilaterally, TM's intact, not inflamed with normal light reflex, hearing grossly normal to conversational speech.?NOSE:?no deformity, discharge, inflammation, or lesions. ?MOUTH:?mucous membranes moist, normal oropharynx and posterior pharynx without lesions or exudates, tongue normal, dentition normal.?NECK:?neck supple, no masses or palpable cervical nodes, trachea midline, thyroid without nodules, masses, tenderness, or enlargement.?CHEST:?no chest wall deformity, no chest wall tenderness. ?LUNGS:?normal respiratory effort and clear to auscultation, no wheezes, rales, or rhonchi, good air exchange.?CARDIO:?regular rate and rhythm, normal S1 and S2, nor murmur, rub, or gallop.?PULSES:?normal capillary refill.?ABDOMEN:?soft, non-distended, non-tender, no masses.?MUSCULOSKELETAL:?no deformity or scoliosis noted, normal range of motion, joints normal, no erythema, edema, effusion, or ecchymosis.?EXTREMITY:?no clubbing, cyanosis, edema, or deformity withnormal ROM in both upper and lower bilateral extremities.?NEUROLOGIC:?grossly normal.?SKIN:?no rashes, ulcerations, or suspicious lesions.?LYMPH NODES:?no cervical adenopathy, nodes normal.?MENTAL STATUS:?alert and oriented x3, normal mood and affect.? Assessment: * Assessment: 1.?Chronic sinusitis - J32.9 (Primary)???2.?Encounter for other specified p rophylactic measures - Z29.89???3.?Boil - L02.92??? Plan: * Treatment: ?Imaging: CT sinus w con2.?Others? Start Doxycycline Monohydrate Tablet, 100 MG, 1 tablet, Orally, bid, 10 days, 20 Tablet;?StartCefdinir Capsule, 300 MG, 2 capsule, Orally, once a day, 10 days, 20 Capsule, Refills 0.?? * Procedures: ???Allergy:?Allergy Shot?Administered.?Vial A?Allergy:?os*?Formulation:restart1, Expires:05/08/26, Arm: left.?Vial B?Formulation:restart, Allergies:os Expires:05/09/25, Arm: right? Epinephrin drawn up and released?before drawing up solution per hammer shop supervisor?.??&#1 60; ? * Procedure Codes: 9 5144 ANTIGENS,SINGLE DOSE VIAL * * Sign off status: CompletedVisit Status:?CHK (Check Out) true * Provider: Rex Tovar ([facility])MD Date: 10/23/2024 Generated for Printing/Faxing/eTransmitting on:?08/30/2025 09:12 AM EST History and Physical Notes * HPI (History of Present Illness) CategorySub-CategoryDetailNotesCategory NotesGeneral Patient presents today for allergy injection boil on back Examination CategorySub-CategoryDetailNotesCategory NotesPhysical ExamGENERAL:well developed, well nourished, in no acute distressHEAD:normocephalic/atraumatic EYES:pupils equal, round and reactive to light, conjunctivae and sclerae normal EARS:no deformity or lesion of external ear, canals and TM appear normal bilaterally, TM's intact, not inflamed with normal light reflex, hearing grossly normal to conversational speechNOSE:no deformity, discharge, inflammation, or lesionsMOUTH:mucous membranes moist, normal oropharynx and posterior pharynx without lesions or exudates, tonguenormal, dentition normalNECK:neck supple, no masses or palpable cervical nodes, trachea midline, thyroid without nodules, masses, tenderness, or enlargementCHEST:no chest wall deformity, no chest wall tendernessLUNGS:normal respiratory effort and clear to auscultation, no wheezes, rales, or rhonchi, good air exchangeCARDIO:regular rate and rhythm, normal S1 and S2, nor murmur, rub, or gallopPULSES:normal capillary refillABDOMEN:soft, non-distended, non-tender, no massesRECTAL:MUSCULOSKELETAL:no deformity or scoliosis noted, normal range of motion, joints normal, no erythema, edema, effusion, or ecchymosisEXTREMITY:no clubbing, cyanosis, edema, or deformity with normal ROM in both upper and lower bilateral extremitiesNEUROLOGIC:grossly normalSKIN:no rashes, ulcerations, or suspicious lesionsLYMPH NODES:no cervical adenopathy, nodes normalMENTAL STATUS:alert and oriented x3, normal mood and affect
--- OUTSIDE RECORDS SUMMARY | 2025-08-30 09:12 | XMS_ITS | Clinical Summary ---
Author Organization [facility] Address [address] [place] [address] Care Team Providers Care Nursing Manager Name Role Phone Bertrand Tovar MD Primary Care Provider [phone] Jennifer Miller DO Unavailable [phone] Shoshana Diaz NETWORK ENGINEER ADMINISTRATOR Unavailable [phone] Allergies Active AllergyReactionsCriticalityNoted DateCommentsDust Mite Ozhydfz1407/14/2017 Molds & Smuts07/27/2017 Medications MedicationSigDispense QuantityRefillsLast FilledStart DateEnd DateStatus diclofenac (Voltaren) 75 MG EC tablet Take 75 mg by mouth in the morning and 75 mg before bedtime.12/27/2023ctive fenofibrate (Tricor) 145 MG tablet Take 145 mg by mouth Daily12/04/2023ctive EPINEPHrine (Epipen) 0.3 MG/0.3ML injection syringe Inject 1 Syringe as directed 1 (one) time11/20/2023ctive fluticasone (Flonase) 50 MCG/ACT nasal spray Indications:Chronic pansinusitisAdminister 2 sprays into each nostril Daily Shake gently. Before first use, prime pump. After use, clean tip and replace cap. 16 g ctive Additional Information Patient not taking.Reported on 12/19/2024 cetirizine (ZyrTEC) 10 MG tablet Indications:Chronic pansinusitisTake 1 tablet (10 mg) by mouth Daily as needed for allergies 30 tablet ctive famotidine (Pepcid) 20 MG tablet Indications:LPRD (laryngopharyngeal reflux disease)Take 1 tablet (20 mg) by mouth at bedtime 90 tablet ctive gabapentin (Neurontin) 300 MG capsule Indications:Nonintractable epilepsy without status epilepticus, unspecified epilepsy type (HCC)Take 1 capsule (300 mg) by mouth in the morning and 1 capsule (300 mg) in the evening and 1 capsule(300 mg) before bedtime. 90 capsule ctive OXcarbazepine (Trileptal) 300 MG tablet Indications:Seizure disorder (HCC)TAKE 2 TABLETS BY MOUTH IN THE MORNING AND 2 TABLETS BEFORE BEDTIME 360 tablet tive Active Problems ProblemNoted DateDiagnosed DateChronic putblwmtvdes89/29/2024LPRD (laryngopharyngeal reflux disease)03/02/2024Seasonal allergic ybawyjko81/20/2024 Jptkaxfffjkjkf73/20/3222Yihznlxc23/20/2024Hearing loss02/22/2024OM (otitis media)02/22/2024cute cqzeuocvc58/20/7645Dnfudemz51/02/2024Seizure disorder 02/04/20248416Kzcylimtc79/02/2024ognitive developmental delay02/04/2024 Family History Medical HistoryRelationNameCommentsNo Known ProblemsBrotherNo Known Problems FatherDiabetesMotherHTNMotherseizure disorderOtherRelationNameStatusComments BrotherAliveFatherAliveMotherAliveOther Social History Tobacco UseTypesPacks/DayYears UsedDateSmoking Tobacco: NeverSmokeless Tobacco: Never Tobacco Cessation:Counseling Given: Not Answered Alcohol UseStandard Drinks/WeekCommentsNever0 (1 standard drink = 0.6 oz pure alcohol)Sex and Gender InformationValueDate RecordedSex Assigned at BirthNot on fileLegal UzwHbuv6212/17/2022 7:17 PM EDTGender IdentityNot on fileSexual OrientationNot on file Last Filed Vital Signs Vital SignReadingTime TakenCommentsBlood Cjxcojbn771/8003 2:22 PM EDT Sdfou798712/19/2024 2:22 PM EDTTemperature--Respiratory Rate--Oxygen Eaijgfbvds16% 12/19/2024 2:22 PM EDTInhaled Oxygen Concentration--Dwmtrd25.2 kg (201 lb) 12/19/2024 2:22 PM OEHMtigqz918.3 cm (5' 11 )12/19/2024 2:22 PM EDTBody Mass Index28.03012/19/2024 2:22 PM EDT Plan of Treatment Not on file Medical Devices ImplantedTypeAreaManufacturerDevice IdentifierShelf Expiration DateModel / Serial / LotBb In Rectal AreaRectum Insurance Care Teams Team MemberRelationshipSpecialtyStart Date Bertrand Tovar MD PCP - GeneralFamily Medicine02/03/24 Jennifer Miller DO [address] [place] [address] Referring PhysicianNeurolog10/18/24 Shoshana Diaz NP [address] [place] [address] Nurse PractitionerNeurolog10/18/24
--- OUTSIDE RECORDS SUMMARY | 2025-08-30 09:12 | XMS_ITS | Encounter Summary ---
Author Organization [facility] Address [address] [place] [address], [address] [place] [address] Care Team Providers Care Bow Machine Operator Name Role Phone Unavailable Primary Care Provider Unavailabl e Reason for Referral * Imaging (Routine) - OpenSpecialtyDiagnoses / ProceduresReferred By Contact Referred To ContactRadiology Diagnoses Chronic sinusitis, unspecified location Procedures CT SINUS W CONTRAST Bertrand Tovar MD [address] [place] [address] Phone: tel: fax: Referral IDStatusReasonStart DateExpiration DateVisits RequestedVisits [id number]/ Encounter Details DateTypeDepartmentCare Team (Latest Contact Info)Xnuyvhtndxf50/19/2025Transcribe Orders [facility] [address] [id number] Bertrand Tovar MD [address] [place] [address] Chronic sinusitis, unspecified location (Primary Dx) Social History Tobacco UseTypesPacks/DayYears UsedDateSmoking Tobacco: Never AssessedSex and Gender InformationValueDate RecordedSex Assigned at BirthNot on fileLegal Sex Male11/14/2012 3:07 PM ESTGender IdentityNot on fileSexual OrientationNot on filedocumented as of this encounter Plan of Treatment NameTypePriorityAssociated DiagnosesOrder ScheduleCT SINUS W CONTRASTImaging Routine Chronic sinusitis, unspecified location Expected: 08/23/2025, Expires: 08/23/2026documented as of this encounter Visit Diagnoses Diagnosis Chronic sinusitis, unspecified location- Primary documented in this encounter
--- NOTE | 2025-08-30 09:13 | CT_ITS ---
The [address] [address] Patient Name: KJ NICOLAS MRN: [id number] date: 1975 Sex: M Assigned Patient Location: CT Current Patient Location: CT Accession/Order Number: [id number] Exam Date: 08/30/2025 09:25 Report Date: 08/30/2025 10:12 At the request of: JORDAN WYLIE MD Procedure: CT sinus w con CT PARANASAL SINUSES WITH CONTRAST: CLINICAL HISTORY: Chronic Sinusitis with headaches, facial pressure and congestion COMPARISON: Brain 07/28/2024 TECHNIQUE: Contiguous axial images were obtained through the paranasal sinuses following 100 mL of Omnipaque 300. Coronal reconstructions were also performed. This CT exam was performed using one or more following dose reduction techniques: Automated exposure control, adjustment of the mA and/or kV according to patient size, or use of iterative reconstruction technique. FINDINGS: There is appropriate development and pneumatization. There is minimal maxillary, ethmoid and sphenoid mucosal thickening. No fluid levels are seen. The ostiomeatal complexes are patent. There is subtle nasal septal deviation to the right. There is no bony destruction. CT/CT sinus w con IMPRESSION: MINIMAL CHRONIC SINUSITIS. Impression dictated by: Carolyn Wallace M.D. 08/30/2025 10:12 AM Dictation Location: [place] [address] Electronically authenticated by: [id number] Y Date: 08/30/2025 10:12
--- OUTSIDE RECORDS SUMMARY | 2025-08-30 09:13 | XMS_ITS | Clinical Summary ---
Author Organization [facility] Address [address] [place] [address], [address] [place] [address] Care Team Providers Care Enrollment Advisor Name Role Phone Unavailable Primary Care Provider Unavailabl e Encounters DateTypeDepartmentCare OfjvSddqcvuusdu28/19/2025Transcribe Orders [facility] [address] [place], [place] [id number] Bertrand Tovar MD Chronic sinusitis, unspecified location (Primary Dx)from Last 3 Months Social History Tobacco UseTypesPacks/DayYears UsedDateSmoking Tobacco: Never AssessedSex and Gender InformationValueDate RecordedSex Assigned at BirthNot on fileLegal Sex Male11/14/2012 3:07 PM ESTGender IdentityNot on fileSexual OrientationNot on file Plan of Treatment Not on file
--- OUTSIDE RECORDS SUMMARY | 2025-08-30 09:13 | XMS_ITS | Patient Health Record ---
Author Organization [facility] in [place] Address [address] [place] [address] Care Team Providers Care Rn Research Name Role Phone Jose Wylie Primary Care Provider -[phone] JORDAN WYLIE Unavailable [phone] VilmaNat granado Unavailable [phone] Allergies No Known Allergies Results Component Value Reference Range Notes UA (Urinalysis, Dipstix only - w/o micro) Reviewed date:07/21/2025 11:19:13 AM Interpretation: Performing Lab: Notes/Report: COLOR carole Yellow - Carole - CLARITYclearClear - ClearGLUCOSE-0 - 133 MG/DLALBUMIN-NEG - NEG MG/DLBILIRUBIN- NEG - NEG MG/DLSPECIFIC GRAVITY1.0001.001 - 1.035KETONES-NEG - NEG MG/DLBLOOD, UR-PH, UR5.05 - 9UROBILNOGEN-0.2 - 1 MG/DLNITRITE-NEG - NEGXR knee SUHA 3V Reviewed date:04/12/2025 06:37:11 PM Interpretation: Performing Lab: Notes/Report: Source Facility: [place] [address] [place] [address] XRay Report Signed Patient: KJ NICOLAS MR#: [id number] : 1975 Acct:[id number] Age/Sex: 49 / M ADM Date: 04/12/25 Loc: RAD Attending Dr: Jordan Wylie M.D. Ordering Physician: Jordan Wylie M.D. Date of Service: 04/12/25 Procedure(s): XR knee SUHA 3V Accession Number(s): [id number] cc: Jordan Wylie M.D. [address] [place] [id number] Patient Name: KJ NICOLAS MRN: [id number] date: 1975 Sex: M Assigned Patient Location: RAD Current Patient Location: RAD Accession/Order Number: [id number] Exam Date: 04/12/2025 16:29 Report Date: 04/12/2025 16:30 At the request of: JORDAN WYLIE MD Procedure: XR knee SUHA 3V 3 views both knees HISTORY: Bilateral anterior knee pain. No joint effusion, bony malalignment or acute displaced fracture. No significant degeneration or soft tissue abnormality. XR/XR knee SUHA 3V IMPRESSION: Unremarkable exam Impression dictated by: Manoj Teran M.D. 04/12/2025 4:30 PM Dictation Location: [place] [address] Electronically authenticated by: [id number] Y Date: 04/12/2025 16:30 Dictated By: Manoj Teran D.O. Signed By: 04/12/25 1633 DD/ 1630 TD/TT: Production Support Analyst:CBC AUTO DIFF Reviewed date:11/27/2024 09:16:11 AM Interpretation: Performing Lab: Notes/Report: [facility] ,White Blood Count4.94.0-11.0 10 3/uLRed Blood Count4.734.70-6.10 10 6/uL Wblodvxwsl95.214.0-18.0 g/pZRgkpqvkuxo94.742.0-54.0 %Mean Corpuscular Kmmvtb43.4 80.0-94.0 fLMean Corpuscular Tkvkhkthhi63.125.9-34.0 pgMean Corpuscular HGB Conc 34.829.9-35.2 g/dLRed Cell Distribution Width11.911.0-15.0 %Platelet Vqgfh385 150-450 10 3/uLMean Platelet Volume8.79.5-13.5 fLNeutrophils Percent Auto36.9 43.0-75.0 %Lymphocytes Percent Auto39.620.5-60.0 %Monocytes Percent Auto14.21.7- 12.0 %Eosinophils Percent Auto7.50.9-7.0 %Basophils Percent Auto1.20.2-2.0 % Immature Granulocytes Pct Auto0.60.0-0.5 %Neutrophils Absolute Auto1.81.4-6.5 10 3/uLLymphocytes Absolute Auto2.01.2-3.8 10 3/uLMonocytes Absolute Auto0.70.3-0.8 10 3/uLEosinophils Absolute Auto0.40.0-0.7 10 3/uLBasophils Absolute Auto0.10.0- 0.1 10 3/uLImmature Granulocytes Abs Auto0.030.00-0.03 10 3/uLPerforming Lab:see noteML - [facility] LBFREE T3 Reviewed date:11/27/2024 09:16:11 AM Interpretation: Performing Lab: Notes/Report: [facility] ,Free T31.262.18-3.98 pg/mLPerforming Lab:see noteML - [facility] LB INSULIN Reviewed date:11/27/2024 12:34:17 PM Interpretation: Performing Lab: Notes/Report: [facility] ,Umgaprn81.92.6-24.9 uIU/mL [address] [place], [place] [id number] Clinical Program Consultant: Wade Cherry PhD, Phone: [phone] Performed at: [facility] Performing Lab:see noteMULT[facility] Labsaint [facility] LBLIPID PROFILE Reviewed date:11/27/2024 09:16:11 AM Interpretation: Performing Lab: Notes/Report: [facility] ,Hzjlokflyihnf639<=150 mg/jTIyjjcgrwpig443<=200 mg/dLHDL Xvoguzauwft4828-63 mg/dL <40 mg/dl - HIGH CARDIOVASCULAR RISK > or =60 mg/dl - LOW CARDIOVASCULAR RISK LDL Cholesterol Jaxignrtil509.0 130-159 mg/dl BORDERLINE HIGH 100-129 mg/dl NEAR OR ABOVE OPTIMAL >190 mg/dl VERY HIGH <100 mg/dl OPTIMAL 160-189 mg/dl HIGH VLDL BPKPHQVADYC65.4Chol HDL Ratio5.7 >11.0 HIGH RISK 3.3 - 4.4 LOW RISK 4.4 - 7.1 AVERAGE RISK 7.1 - 11.0 MODERATE RISK Performing Lab:see note - [facility] LBPROF 14(COMP METB) Reviewed date:11/27/2024 09:16:11 AM Interpretation: Performing Lab: Notes/Report: [facility] ,Rgyrhu188409-443 mmol/LPotassium4.33.5-5.1 mmol/VSwhvjtbu1427-269 mmol/LCarbon Otyjavu05.421.0-32.0 mmol/LAnion Gap6.6Sepaxnv4404-187 mg/dLBlood Urea Nitrogen 14.07.0-18.0 mg/dLCreatinine1.190.70-1.30 mg/dLEstimated GFR ( Denise>60 >=60 mL/min/1.73m 2Estimated GFR (Non- Criss>60>=60 mL/min/1.73m 2BUN Creatinine Ratio11.5Wctbtwz9.98.5-10.1 mg/dLBilirubin Total0.50.2-1.0 mg/dL Aspartate Amino Tqdcyvgnkiy3731-15 U/LAlanine Pneposzlhwezlbdl9375-54 U/L Alkaline Gknpibfbcmq2853-828 U/LTotal Protein7.86.4-8.2 g/dLAlbumin Level4.13.4- 5.0 g/dLGlobulin3.7Albumin Globulin Ratio1.1Performing Lab:see note - [facility] LBPSA SCREENING Reviewed date:11/27/2024 09:16:11 AM Interpretation: Performing Lab: Notes/Report: [facility] ,Prostate Specific Antigen Scrn0.39<=4.00 ng/mLPerforming Lab:see note - [facility] LBT4 Reviewed date:11/27/2024 09:16:11 AM Interpretation: Performing Lab: Notes/Report: [facility] ,T4 Thyroxine6.304.50-12.10 ug/dLPerforming Lab:[facility] LBTSH Reviewed date:11/27/2024 09:16:11 AM Interpretation: Performing Lab: Notes/Report: [facility] ,Thyroid Stimulating Hormone1.3990.358-3.740 uIU/mLPerforming Lab:see note - [facility] LBURIC ACID SERUM Reviewed date:11/27/2024 09:16:11 AM Interpretation: Performing Lab: Notes/Report: [facility] ,Uric Acid4.53.5-7.2 mg/dLPerforming Lab:see noteML - [facility] LBXR chest 2V Reviewed date:05/07/2025 07:53:06 PM Interpretation: Performing Lab: Notes/Report: Source Facility: [facility] [place] [address] [place] [address] XRay Report Signed Patient: KJ NICOLAS MR#: [id number] : 1975 Acct:[id number] Age/Sex: 49 / M ADM Date: 05/04/25 Loc: [facility] Attending Dr: Jordan Wylie M.D. Ordering Physician: Jordan Wylie M.D. Date of Service: 05/04/25 Procedure(s): XR chest 2V Accession Number(s): [id number] cc: Jordan Wylie M.D. [place] [address] Patient Name: KJ NICOLAS MRN: [id number] date: 1975 Sex: M Assigned Patient Location: [facility] Current Patient Location: Accession/Order Number: [id number] Exam Date: 05/05/2025 09:51 Report Date: 05/05/2025 09:51 At the request of: JORDAN WYLIE MD Procedure: XR chest 2V Chest 2 views CLINICAL HISTORY: Chest wall pain COMPARISON: None FINDINGS: Heart normal in size. Lungs are clear. No free air. XR/XR chest 2V IMPRESSION: NO ACUTE CARDIOPULMONARY ABNORMALITY. Impression dictated by: Jerad Amos Jr., D.O. 05/05/2025 9:51 AM Dictation Location: [place] [address] Electronically authenticated by: [id number] Y Date: 05/05/2025 09:51 Dictated By: Jerad Amos M.D. Signed By: 05/05/25 0954 DD/ 0 TD/TT: Production Support Analyst:GLYCOHEMOGLOBIN A1C Reviewed date:11/27/2024 09:16:11 AM Interpretation: Performing Lab: Notes/Report: [facility] ,Glycohemoglobin A1C5.24.5-6.2 % ADA THERAPEUTIC TARGET < 7.0 > 7.0 ADA RECOMMENDED LIMIT 4.0 - 6.0 ACTION SUGGESTED Estimated Average Lhusamb269Kifvpriyrp Lab:see noteML - [facility] LB XR ribs LT 2V Reviewed date:05/04/2025 07:03:37 PM Interpretation: Performing Lab: Notes/Report: Source Facility: [facility] [place] [address] [place] [address] XRay Report Signed Patient: KJ NICOLAS MR#: [id number] : 1975 Acct:[id number] Age/Sex: 49 / M ADM Date: 05/04/25 Loc: RAD Attending Dr: Jordan Wylei M.D. Ordering Physician: Jordan Wylie M.D. Date of Service: 05/04/25 Procedure(s): XR ribs LT 2V Accession Number(s): [id number] cc: Jordan Wylie M.D. [place] [address] Patient Name: KJ NICOLAS MRN: [id number] date: 1975 Sex: M Assigned Patient Location: [facility] Current Patient Location: [facility] Accession/Order Number: [id number] Exam Date: 05/04/2025 15:19 Report Date: 05/04/2025 [...] Jr., D.O. 05/04/2025 3:20 PM Dictation Location: [place] [address] Electronically authenticated by: [id number] Y Date: 05/04/2025 15:20 Dictated By: Jerad Amos M.D. Signed By: 05/04/25 1522 DD/ 1520 TD/TT: Production Support Analyst:LIN SHRESTHA ([id number]) - IN OFFICE Reviewed date:05/04/2025 07:03:37 PM Interpretation: Performing Lab: Notes/Report: COLORyellowGLUCOSENEGBILIRUBINNEGKETONENEGSPECIFIC GRAVITY1.394QWAJQYIQTP5 DELCAHYGNODUEDLJYDVGLUNU2APTZWLOFJQBHUGRPYXA ESTERASETRACEUrine Culture - [facility] Reviewed date:05/18/2025 04:14:20 PM Interpretation: Performing Lab: Notes/Report: [facility] ,Urine Culture - FRMCSee Below For Report Urine Culture - [facility] 15,000 colonies/ml mixed Urine Culture - FRMCbacterial skin contaminants Urine Culture - [facility] 15,000 colonies/ml mixed Urine Culture - [facility]2 Days Urine Culture - [facility] 15,000 colonies/ml mixed Urine Culture - [facility] Urine Culture - [facility] 15,000 colonies/ml mixed Urine Culture - [facility]CTesting [facility] at [facility] Urine Culture - [facility] 15,000 colonies/ml mixed Urine Culture - [id number] [place] [address] Urine Culture - [facility] 15,000 colonies/ml mixed Performing Lab:see noteML - [facility] LBUA RANDOM W or MICROSCOPIC Reviewed date:05/16/2025 07:53:41 PM Interpretation: Performing Lab: Notes/Report: [facility] ,Color UrineYELLOWYELLOWClarity UrineCLEARCLEARSpecific [place] Urine1.015 1.005-1.025pH Urine7.05.0-9.0Protein UrineNEGATIVENEG/TRACE mg/dLGlucose Urine UANEGATIVENEGATIVE mg/dLBilirubin UrineNEGATIVENEGATIVEKetones UrineNEGATIVE NEGATIVE mg/dLBlood UrineNEGATIVENEGATIVENitrite UrineNEGATIVENEGATIVE Urobilinogen Urine1.00.2-1.0 EU/dLLeukocyte Esterase UrineNEGATIVENEGATIVEWBC Urine0-2NONE SEEN #/HPFRBC UrineNONE SEEN0-2 #/HPFBacteria UrineTRACENONE SEEN #/HPFMucus UrineNONE SEENNONE SEENSquamous Epithelial Cell UrineNONE SEEN NONE/RARE #/LPFCrystals Seen?None SeenNone Seen #/HPFCast Seen?NONE SEENNONE SEEN #/LPFUrine Culture IndicatedALREADY ORDEREDPerforming Lab:see noteML - [facility] LBXR lumbar spine min 4V Reviewed date:11/27/2024 09:16:11 AM Interpretation: Performing Lab: Notes/Report: Source Facility: [place] [address] XRay Report Signed Patient: KJ NICOLAS MR#: [id number] : 1975 Acct:[id number] Age/Sex: 49 / M ADM Date: 11/26/24 Loc: LAB Attending Dr: Jordan Wylie M.D. Ordering Physician: Jordan Wyile M.D. Date of Service: 11/26/24 Procedure(s): XR lumbar spine min 4V Accession Number(s): [id number] cc: Jordan Wylie M.D. [place] [address] Patient Name: KJ NICOLAS MRN: [id number] date: 1975 Sex: M Assigned Patient Location: LAB Current Patient Location: LAB Accession/Order Number: [id number] Exam Date: 11/26/2024 10:33 Report Date: 11/26/2024 [...] Isael Amaro M.D.11/26/2024 10:36 AM Dictation Location: [place] [address] Electronically authenticated by: [id number] Y Date: 11/26/2024 10:36 Dictated By: Isael Amaro M.D. Signed By: 11/26/24 1039 DD/ 1036 TD/TT: Production Support Analyst:XR hip RT 2V w/ pelvis Reviewed date:11/27/2024 09:16:11 AM Interpretation: Performing Lab: Notes/Report: Source Facility: [place] [address] XRay Report Signed Patient: KJ NICOLAS MR#: [id number] : 1975 Acct:[id number] Age/Sex: 49 / M ADM Date: 11/26/24 Loc: LAB Attending Dr: Jordan Wylie M.D. Ordering Physician: Jordan Wylie M.D. Date of Service: 11/26/24 Procedure(s): XR hip RT 2V w/ pelvis Accession Number(s): [id number] cc: Jordan Wylie M.D. [place] [address] Patient Name: KJ NICOLAS MRN: [id number] date: 1975 Sex: M Assigned Patient Location: LAB Current Patient Location: LAB Accession/Order Number: [id number] Exam Date: 11/26/2024 10:36 Report Date: 11/26/2024 [...] Isael Amaro M.D.11/26/2024 10:38 AM Dictation Location: [place] [address] Electronically authenticated by: [id number] Y Date: 11/26/2024 10:38 Dictated By: Isael Amaro M.D. Signed By: 11/26/24 1040 DD/ 1038 TD/TT: Production Support Analyst: Reason For Referral No Information Medications Medication SIG (Take, Route, Frequency, Duration) Notes Start Date End Date Status Doxycycline Monohydrate 100 MG 1 tablet Orally b id; Duration: 10 days 5ActiveCefdinir 300 MG2 capsule Orally once a day; Duration: 10 days 5ActiveFenofibrate 145 MGTAKE 1 TABLET BY MOUTH EVERY DAY; Duration: 90 ActiveFluticasone Propionate 50 MCG/ACTUSE 1 SPRAY INTO EACH NOSTRIL TWICE A DAY; Duration: 30ActiveGabapentin 300 MG1 capsule Orally TIDActiveKetoconazole 2 %1 application Externally bid; Duration: 14 days5ActiveAzelastine HCl 0.05 %INSTILL 1 DROP INTO AFFECTED EYE TWICE A DAY; Duration: 45ActivetiZANidine HCl 4 MG2 tabs Orally qhs; Duration: 30 days5ActiveCetirizine HCl 10 MG TAKE 1 TABLET (10 MG) BY MOUTH DAILY NEEDED FOR ALLERGIES; Duration: 90Active Triamcinolone Acetonide 0.1 %1 application Externally Two times a WeekActive Diclofenac Sodium 75 MGTAKE 1 TABLET BY MOUTH TWICE A DAY NEEDED FOR 30 DAYS; Duration: 14 daysActiveTrileptal 600 MG1 tablet Orally Twice a dayActiveVirasal 27.5 %1 application as needed Externally Once a day5ActivePantoprazole Sodium 40 MGTAKE 1 TABLET BY MOUTH EVERY DAY IN THE EVENING; Duration: 30Active Immunizations Vaccine Route Administration Date Status Comme nts Flu, Flucelvax (5972-9665) (75182) 6 mos +, single-dose syringe IM Intramuscular 07/27/2023 Administered Flu, Flucelvax (87574) 6 mos and older, single-dose syringe (9880-1054)IM Rvtzxoxdujwqk35/09/2024Partially AdministeredFlu, Flucelvax (25081) 6 mos and older, single-dose syringe (9838-6685)IM Luszkdjfclilr43/03/2025Administered Social History Tobacco Use: Social History Observation Description Date Details (start date - stop date) Never Smoker NA - NA Tobacco Use/Smoking Question Answer Notes Patient is a nonsmoker Alcohol Screen (Audit-C) Question Answer Notes Did you have a drink containing alcohol in the p ast year? No Hsubci1GluvjxketjomhlVvyishjvTNBQA-Y (Standard) Question Answer Notes Did you have a drink containing alcohol in the p ast year? No Lntqgv2WnhosigasxlxgdOgjolskz Problems Problem Type SNOMED Code ICD Code Onset Dates Problem Status W/U Status Risk Notes Problem Impacted cerumen (70368057) Impacted ceru men, right ear (H61.21) ActiveconfirmedProblemTinea cruris (501922155)Tinea cruris (B35.6)Active confirmedProblemImpacted cerumen (44741985)Impacted cerumen, left ear (H61.22) ActiveconfirmedProblemOtitis media (05789547)Otitis media, unspecified, unspecified ear (H66.90)ActiveconfirmedProblemRecurrent acute sinusitis (626286571)Acute recurrent pansinusitis (J01.41)ActiveconfirmedProblemSeasonal allergic rhinitis (983180160)Other seasonal allergic rhinitis (J30.2)Active confirmedProblemAllergic rhinitis (63353595)Allergic rhinitis, unspecified (J30.9)ActiveconfirmedProblemChronic sinusitis (99050715)Chronic sinusitis, unspecified (J32.9)ActiveconfirmedProblemAcquired deformity of right foot (disorder) (332153358)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)Active confirmedProblemInstability of joint of right ankle (7806997689421186)Other instability, 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)ActiveconfirmedProblemHand pain (78724344)Pain in unspecified hand (M79.643)ActiveconfirmedProblemPain in right foot (591854616055080)Pain in right foot (M79.671)ActiveconfirmedProblemDysphagia (63222308)Dysphagia, unspecified (R13.10)ActiveconfirmedProblemContusion of knee (81397073)Contusion of unspecified knee, initial encounter (S80.00XA)Active confirmedProblemSprain of left knee (15452947274819942)Sprain of other specified parts of left knee, initial encounter (S83.8X2A)ActiveconfirmedProblemSprain of ankle (83368894)Sprain of unspecified ligament of unspecified ankle, initial encounter (S93.409A)ActiveconfirmedProblemOther allergy status, other than to drugs and biological substances (Z91.09)ActiveconfirmedProblemWart (61840927) Wart (B07.9)ActiveconfirmedProblemGastroesophageal reflux disease (213505554) GERD (gastroesophageal reflux disease) (K21.9)ActiveconfirmedProblemKnee pain (0744421714)Knee pain (M25.569)ActiveconfirmedProblemMigraine (64932991)Migraine (G43.909)ActiveconfirmedProblemBack pain (368957038)Back pain (M54.9)Active confirmedProblemMigraine (59617412)Migraine without status migrainosus, not intractable, unspecified migraine type (G43.909)ActiveconfirmedProblemAcute sinusitis (70698126)Acute sinusitis (J01.90)ActiveconfirmedProblemAllergic rhinitis (86937070)Allergic rhinitis (J30.9)ActiveconfirmedProblemChronic sinusitis (08712812)Chronic sinusitis (J32.9)ActiveconfirmedProblemWell adult (832788257)Well adult (Z00.00)ActiveconfirmedProblemDysphagia (92819896) Dysphagia (R13.10)ActiveconfirmedProblemLymphadenopathy (66278095) Lymphadenopathy (R59.1)ActiveconfirmedProblemSeasonal allergic rhinitis (529600757)Seasonal allergic rhinitis (J30.2)ActiveconfirmedProblemPain in limb (89189065)Foot pain, right (M79.671)ActiveconfirmedProblemDiverticulitis (01397557)Diverticulitis (K57.92)ActiveconfirmedProblemChest wall pain (714434146)Chest wall pain (R07.89)ActiveconfirmedProblemContact dermatitis (18584114)Contact dermatitis (L25.9)ActiveconfirmedProblemConstipated (44991694) Constipated (K59.00)ActiveconfirmedProblemInternal derangement of right knee (04310826528893188)Internal derangement of right knee (M23.91)Activeconfirmed ProblemCognitive developmental delay (760473141)Cognitive developmental delay (F81.9)ActiveconfirmedProblemHistory and physical examination, sports participation (456962344)Sports physical (Z02.5)ActiveconfirmedProblemSeizure (23021622)Seizure (R56.9)ActiveconfirmedProblemSensorineural hearing loss (03572359)Hearing loss, sensorineural (H90.5)ActiveconfirmedProblemContusion of hand (0754054)Contusion, hand (S60.229A)ActiveconfirmedProblemArthralgia of the pelvic region and thigh (927758583)Hip pain, acute, right (M25.551)Active confirmedProblemDisorder of sacrum (24821756)Low back derangement syndrome (M53.86)ActiveconfirmedProblemOsteoarthritis of knee (784535750)Knee osteoarthritis (M17.10)ActiveconfirmedProblemImmunotherapy (procedure) (70251147)Encounter for immunotherapy (Z29.8)ActiveconfirmedProblemEpilepsy (71345811)Cerebral seizure (G40.909)ActiveconfirmedProblemLow back pain (finding) (542273257)Back pain, lumbosacral (M54.50)Activeconfirmed Vital Signs Temperature 98.3 degrees Fahrenheit 04/21/2025 Blood pressure cybxmsmhz77 mm Hg08/23/20255437Lqaboy52 in08/23/2025lood pressure vurbynsg024 mm Hg08/23/20257811Ejfujd386.8 lbs110/23/2024BMI27.31 kg/m208/23/2025 Encounters Encounter Location Date Provider Diagnosis [facility] [address] [place] [address] 03/28/2025 Jose Hoy Knee pain M25.569 an d Knee pain, right M25.561 [facility] [address] [place] [address] 05/04/2025 Jose Hoy Chest wall pain R07. [address] [place] [address] 04/21/2025 Jose Hoy Diverticulitis K57.9 [address] [place] [address] [place] [address] 07/21/2025 Nat Vilma Flank pain, left mando e R10.A2 and Encounter for other specified prophylactic measures Z29.89 [facility] [address] [place] [address] 04/12/2025 Jose Hoy Wart B07.9 and Encounter for other specified prophylactic measures Z29.89 [facility] [address] [place] [address] 04/14/2025 Jose Hoy Frequency R35.0 and Acute UTI N39.0 [facility] [address] [place] [address] 11/03/2024 Jose Hoy Acute bronchiolitis J21.9 ; Cerebral seizure G40.909 and Encounter for other specified prophylactic measures Z29.89 [facility] [address] [place] [address] 11/16/2024 Jose Hoy Encounter for immunotherapy Z29.8 ; Low back derangement syndrome M53.86 and Well adult Z00.00 [facility] [address] [place] [address] 08/23/2025 Jose Hoy Chronic sinusitis J3 2.9 ; Encounter for other specified prophylactic measures Z29.[address] [facility] [address] [place] [address] 03/09/2025 Jose Hoy Other allergy status , other than to drugs and biological substances Z91.09 and Encounter for other specified prophylactic measures Z29.89 [facility] [address] [place] [address] 03/24/2025 Jose Hoy Seasonal allergic rhinitis J30.2 and Encounter for other specified prophylactic measures Z29.89 [facility] [address] [place] [facility] [place] [place] [address] 12/28/2024 JORDAN HOY Allergic rhinitis J3 0.9 ; Seasonal allergic rhinitis J30.2 and Encounter for other specified prophylactic measures Z29.89 [facility] [address] [place] [address] 01/09/2025 Jose Hoy Seasonal allergic rhinitis J30.2 and Encounter for other specified prophylactic measures Z29.89 [facility] [address] [place] [facility] [place] [place] [address] 02/01/2025 Jose Hoy Seasonal allergic rhinitis J30.2 and Encounter for other specified prophylactic measures Z29.89 [facility] [address] [place] [facility] [place] [place] [address] 02/24/2025 Jose Hoy Encounter for immunotherapy Z29.8 [facility] [address] [place] [facility] [place] [place] [address] 08/07/2025 Jose Hoy Other seasonal aller gic rhinitis J30.2 ; Encounter for immunization Z23 and Encounter for other specified prophylactic measures Z29.89 [facility] [address] [place] [facility] [place] [place] [address] 04/26/2025 Jose Hoy Encounter for other specified prophylactic measures Z29.89 [facility] [address] [place] [facility] [place] [place] [address] 05/17/2025 Jose Hoy Allergic rhinitis, unspecified J30.9 and Encounter for other specified prophylactic measures Z29.89 [facility] [address] [place] [place] [place] [address] 06/15/2025 Jose Hoy Encounter for immunotherapy Z29.8 [facility] [address] [place] [facility] [place] [place] [address] 11/28/2024 Jose Hoy Other allergy status , other than to drugs and biological substances Z91.09 and Encounter for other specified prophylactic measures Z29.89 [facility] [address] [place] [facility] [place] [place] [address] 09/08/2024 Jose Hoy Allergic rhinitis J3 0.9 and Encounter for immunotherapy Z29.8 [facility] [address] [place] [facility] [place] [place] [address] 09/19/2024 Jose Hoy Chronic sinusitis, unspecified J32.9 and Encounter for other specified prophylactic measures Z29.89 [facility] [address] [place] [facility] [place] [place] [address] 10/06/2024 Jose Hoy Seasonal allergic rhinitis J30.2 and Encounter for other specified prophylactic measures Z29.89 [facility] [address] [place] [facility] [place] [place] [address] 10/19/2024 Jose Hoy Other allergy status , other than to drugs and biological substances Z91.09 and Encounter for other specified prophylactic measures Z29.89 [facility] [address] [place] [facility] [place] [place] [address] 06/30/2025 Jose Hoy Encounter for immunotherapy Z29.8 and Seasonal allergic rhinitis J30.2 [facility] [address] [place] [facility] [place] [place] [address] 12/12/2024 Jose Hoy Encounter for other specified prophylactic measures Z29.89 and Acute bronchitis, unspecified organism J20.9 [facility] [address] [place] [facility] [place] [place] [address] 06/22/2025 Jose Hoy Tinea cruris B35.6 [facility] [address] [place] [place] [address] 10/26/[address] [facility] [place] [facility] [place] [place] [address] 11/22/2024Doug [facility] [place] [address]/Doug HoyOther specified abnormal findings of blood chemistry R79.89[facility] [place] [address]/Doug [facility] [facility] [place] [address]/07/2025Doug HoyAcute bronchitis, unspecified organism J20.9[facility] [facility] [address] [place] [address] 12/26/2024Doug [facility] [facility] [address] [place] [place] [address]/[facility] [place] [address]/11/2024Doug HoyKnee pain, right M25.561 and Knee pain, left M25.562B[facility] [place] [address]/06/2025[facility] [facility] [place] [address]/[facility] [facility] [place] [address]/Doug [facility] [facility] [place] [address]/Doug HoyKnee pain, right M25.561 and Left knee pain M25.562B[facility] [place] [address]/[facility] [place] [address]/12/2024[facility] [facility] [address] [place] [address]/09/2025 Jose HoyFlank pain R10.9BAd[facility] [place] [address]/09/2025[facility] [place] [address]/[facility] [place] [address]/Doug Hoy Assessments Encounter Date Diagnosis (ICD Code) Assessment Notes Treatment Notes Treatment Clinical Notes Section Notes 09/19/2024 Chronic sinusitis, unspecified ( ICD-10 - J32.9) 09/19/2024Encounter for other specified prophylactic measures (ICD-10 - Z29.89) 10/06/2024Seasonal allergic rhinitis (ICD-10 - J30.2)10/06/2024Encounter for other specified prophylactic measures (ICD-10 - Z29.89)10/19/2024Other allergy status, other than to drugs and biological substances (ICD-10 - Z91.09) 10/19/2024Encounter for other specified prophylactic measures (ICD-10 - Z29.89) 5Acute bronchiolitis (ICD-10 - J21.9)5Cerebral seizure (ICD-10 - G40.909)01/09/2025Seasonal allergic rhinitis (ICD-10 - J30.2)01/09/2025 Encounter for other specified prophylactic measures (ICD-10 - Z29.89)02/01/2025 Seasonal allergic rhinitis (ICD-10 - J30.2)02/01/2025Encounter for other specified prophylactic measures (ICD-10 - Z29.89)02/24/2025Encounter for immunotherapy (ICD-10 - Z29.8)03/09/2025Other allergy status, other than to drugs and biological substances (ICD-10 - Z91.09)03/09/2025Encounter for other specified prophylactic measures (ICD-10 - Z29.89)03/24/2025Seasonal allergic rhinitis (ICD-10 - J30.2)03/24/2025Encounter for other specified prophylactic measures (ICD-10 - Z29.89)03/28/2025Knee pain (ICD-10 - M25.569)03/28/2025Knee pain, right (ICD-10 - M25.561)04/12/2025Wart (ICD-10 - B07.9)04/12/2025Encounter for other specified prophylactic measures (ICD-10 - Z29.89)04/14/2025Frequency (ICD-10 - R35.0)04/14/2025ute UTI (ICD-10 - N39.0)04/21/2025Diverticulitis (ICD-10 - K57.92)04/26/2025Encounter for other specified prophylactic measures (ICD-10 - Z29.89)05/04/2025hest wall pain (ICD-10 - R07.89)05/17/2025llergic rhinitis, unspecified (ICD-10 - J30.9)05/17/2025Encounter for other specified prophylactic measures (ICD-10 - Z29.89)06/15/2025Encounter for immunotherapy (ICD-10 - Z29.8)06/22/2025Tinea cruris (ICD-10 - B35.6)06/30/2025Encounter for immunotherapy (ICD-10 - Z29.8)06/30/2025Seasonal allergic rhinitis (ICD-10 - J30.2)07/21/2025Flank pain, left side (ICD-10 - R10.A2) urine negative try nsaid if worsens fu 07/21/2025Encounter for other specified prophylactic measures (ICD-10 - Z29.89) 08/07/2025Other seasonal allergic rhinitis (ICD-10 - J30.2)08/07/2025Encounter for immunization (ICD-10 - Z23)11/27/2024Other specified abnormal findings of blood chemistry (ICD-10 - R79.89)5Acute bronchitis, unspecified organism (ICD-10 - J20.9)04/05/2025Knee pain, right (ICD-10 - M25.561)04/05/2025 Knee pain, left (ICD-10 - M25.562)04/26/2025Knee pain, right (ICD-10 - M25.561) 04/26/2025Left knee pain (ICD-10 - M25.562)05/16/2025Flank pain (ICD-10 - R10.9) 11/16/2024Encounter for immunotherapy (ICD-10 - Z29.8)11/16/2024Low back derangement syndrome (ICD-10 - M53.86)11/16/2024Well adult (ICD-10 - Z00.00) 11/28/2024Other allergy status, other than to drugs and biological substances (ICD-10 - Z91.09)11/28/2024Encounter for other specified prophylactic measures (ICD-10 - Z29.89)12/12/2024Encounter for other specified prophylactic measures (ICD-10 - Z29.89)12/12/2024ute bronchitis, unspecified organism (ICD-10 - J20.9)5Allergic rhinitis (ICD-10 - J30.9)12/28/2024Seasonal allergic rhinitis (ICD-10 - J30.2)4Allergic rhinitis (ICD-10 - J30.9)08/23/2025 Chronic sinusitis (ICD-10 - J32.9)08/23/2025Encounter for other specified prophylactic measures (ICD-10 - Z29.89)5Boil (ICD-10 - L02.92) 09/08/2024Encounter for immunotherapy (ICD-10 - Z29.8)12/28/2024Encounter for other specified prophylactic measures (ICD-10 - Z29.89)08/07/2025Encounter for other specified prophylactic measures (ICD-10 - Z29.89)11/03/2024Encounter for other specified prophylactic measures (ICD-10 - Z29.89)11/16/2024Other Recommended to rest and use a heating pad on the area. Take NSAIDs for pain as lsztan8812/12/2024OtherRest and drink more liquids, especially water. You may use a humidifier or vaporizer to help keep the drainage moist. Tlfo-auv-yevyhiv Nasal Saline may help the stuffy and runny nose. Use Ibuprofen and or Tylenol as needed for fever, chills, body aches or pain. Children 5 years old should not be given vhrn-qsn-clxgpoy cough and cold medications such as guaifenesin and dextromethorphan. If you're over age 5, you may try mdir-rrz-ekwtmsu cold medications such as guaifenesin and dextromethorphan, or multi-symptom cold reliever such as Dayquil to help reduce the symptoms. Antibiotics have been pre scribed. You should take these until completed and follow the directions. Antibiotics can sometimescause upset stomach, and in rare cases, serious allergic reactions or serious gastrointestinal problems. If you start having severe abdominal pain, severe vomiting, or bloody diarrhea, you should be r eevaluated by your physician or urgent care immediately. Follow up with your Primary Care Provider or return to clinic if symptoms do not improve within 3-5 days. If you develop severe symptoms such as shortness of breath, repeated vomiting, coughing up blood, or chest pain you should go to the emergency room or call [phone] ot c med Plan Of Treatment Pending Test Test Name Order Date CMP (COMPLETE METABOLIC PANEL) UA (URINALYSIS, COMPLETE) 05/16/2025 HEMOGLOBIN A1C (GLYCO) 11/16/2024 INSULIN, TOTAL 11/16/2024 LIPID PANEL (CHOL/TRIG/HDL/LDL) 11/16/19 25 CBC WITH DIFF (EXP 08/2025) 11/16/2024 CBC WITH DIFF (EXP 08/2025) 03/28/2024 URIC ACID 11/16/2024 CT Abdomen and [...] 06/23/2024 CT KNEE RIGHT WO CONTRAST 07/06/2024 CT sinus w con 08/23/2025 CMP (COMP MET EDWARDS) w/eGFR CKD-EPI 2024 Insurance Providers Payer Name Payer Address Payer Phone Subscriber Number Group Number Insured Name Patient Relationship to Insured Coverage Start Date Coverage End Date [employer] [address] [place], [place] [id number] RoelRaciel zamora - patient is the insuredMEDICAID [facility] [address] [place], [place] [id number], RyanSelf - patient is the insured Medications Administered Medication Instructions Date of Administration Dosage Notes Kenalog-40 480 [id number] Spvaxqdewtvg49/11/511814 mg60 Medical (General) History Medical History History ICD [...]
--- OUTSIDE RECORDS SUMMARY | 2025-08-30 09:17 | XMS_ITS | CCD ---
Author Organization [facility] Care Team Providers Care Wastewater Design Engineer Name Role Phone INESSA ., DR ORTEGA [...] HOY ., DR ORTEGA Attending Unavailable Jordan Tovar Primary Care Physician [phone] Jordan Tovar Admitting Unavailable Hoy, Jordan Attending Unavailable Hoy, Jordan Referring Unavailable Hoy, Jordan Admitting Unavailable Hoy, Jordan Referring Unavailable Hoy, Ojrdan Attending Unavailable Timmis, Irina H Referring Unavailable Timmis, Irina H Attending Unavailable Timmis, Irina H Admitting Unavailable Jordan Tovar MD Primary Care Provider [phone] MARIANA DIAZ Attending Unavailable TIMMIS, IRINA H Attending Unavailable MAREY, JORDAN M Referring Unavailable TIMMIS, IRINA H Attending Unavailable MARIANA DIAZ Attending Unavailable Jordan Tovar MD Attending Provider Jordan Tovar Attending Unavailable Jordan Tovar Admitting Unavailable Jordan Tovar MD Primary Care Provider [phone] Jennifer Miller DO Unavailable Mariana Diaz NP Unavailable Allergies Allergy ClassificationReported Allergen(s)Allergy TypeDate of OnsetReaction(s) Facility (3 sources)House dust mitePropensity to adverse uoltahxmp48-86-4472[facility] (3 sources)Mold ExtractDrug Hlvwdqi58-41-7929[facility] Medications Current Medications MedicationDrug Class(es)DatesSig (Normalized)Sig (Original)cetirizine hydrochloride 10 mg oral tablet (3 sources)Histamine-1 Receptor AntagonistStart: 03-02-2024 End: 81-24-1748nmol 1 tablet by mouth once daily as neededcetirizine (ZyrTEC) 10 MG tablet Indications: Chronic pansinusitis Take 1 tablet (10 mg) by mouth Daily as needed for allergies 30 tablet 11 03/02/2024 Activediclofenac sodium 75 mg delayed release oral tablet (3 sources)Nonsteroidal Anti-inflammatory DrugStart: 03-41-3789dyoi 1 tablet by mouth in the morningdiclofenac (Voltaren) 75 MG EC tablet Take 75 mg by mouth in the morning and 75 mg before bedtime. 12/27/2023 Kfmzuuysd254797 0.3 ml EPINEPHrine 1 mg/ml auto-injector (3 sources)alpha-Adrenergic Agonist, beta-Adrenergic Agonist, Catecholamine Start: 53-80-7986GJPMTEXtoww (Epipen) 0.3 MG/0.3ML injection syringe Inject 1 Syringe as directed 1 (one) time 11/20/2023 Activefamotidine 20 mg oral tablet (2 sources)Histamine-2 Receptor AntagonistStart: 04-06-2024 End: 61-84-2760azrl 1 tablet by mouth at bedtimefamotidine (Pepcid) 20 MG tablet Indications: LPRD (laryngopharyngeal reflux disease) Take 1 tablet(20 mg) by mouth at bedtime 90 tablet 3 04/06/2024 04/01/2025 Activefenofibrate 145 mg oral tablet (3 sources)Peroxisome Proliferator Receptor alpha AgonistStart: 97-45-9744czet 1 tablet by mouth once dailyfenofibrate (Tricor) 145 MG tablet Take 145 mg by mouth Daily 12/04/2023 Activefluticasone propionate 0.05 mg/actuat metered dose nasal spray (3 sources)CorticosteroidStart: 03-02-2024 End: 13-75-0314hceb 2 spray(s) nasal route once dailyfluticasone (Flonase) 50 MCG/ACT nasal spray Indications: Chronic pansinusitis Administer 2 sprays into each nostril Daily Shake gently. Before first use, prime pump. After use, clean tip and replacecap. 16 g 11 03/02/2024 Activegabapentin 300 mg oral capsule (4 sources)Anti-epileptic AgentStart: 04-11-2024 End: 49-09-7870ibvg 1 capsule by mouth in the morning, then take 1 capsule by mouth in the evening, then take 1 capsule by mouth at bedtimegabapentin (Neurontin) 300 MG capsule Indications: Nonintractable epilepsy without status epilepticus, unspecified epilepsy type (CMS/HCC) Take 1 capsule (300 mg) by mouth in the morning and 1 capsule (300 mg) in the evening and 1 capsule (300 mg) before bedtime. 90 capsule 2 08/09/2024 11/07/2024 ActiveOXcarbazepine 300 mg oral tablet (3 sources)Anti-epileptic AgentStart: 04-11-2024 End: 98-85-9449lszd 2 tablets by mouth in the morningOXcarbazepine (Trileptal) 300 MG tablet Indications: Seizure disorder (CMS/HCC) Take 2 tablets (600mg) by mouth in the morning and 2 tablets (600 mg) before bedtime. 120 tablet 2 08/09/2024 11/07/2024 Active Problems Active Problems Problem ClassificationProblemDateDocumented DateEpisodic/ChronicDevelopmental disorders (3 sources)Cognitive developmental delay; Translations: [Developmental disorder of scholastic skills, unspecified]Onset: 893850-72-2186EwtjsrkArjtmgdc mellitus without complication (1 source)Type 2 diabetes mellitus without complications; Translations: [TYPE 2 DM WITHOUT COMPLICATIONS]Onset: 22-07-6304PqhvghdNrveaelzc of lipid metabolism (1 source)Hyperlipidemia, unspecified; Translations: [HYPERLIPIDEMIA UNSPECIFIED]Onset: 04-41-8059LkoczhlGernhrrwltpqwn and diverticulitis (3 sources)Diverticulitis; Translations: [Diverticulitis of intestine, part unspecified, without perforation or abscess without bleeding]Onset: 02-22-2024 77-06-0982JadjyviBkzjjide; convulsions (6 sources)Epilepsy; Translations: [Epilepsy, unspecified, not intractable, without status epilepticus]Onset: 563934-66-6162YsmbwckGwguzgnuam disorders (3 sources)Laryngopharyngeal reflux; Translations: [Gastro-esophageal reflux disease without esophagitis]Onset: 914573-02-4722JzzlfvlSxlzffof; including migraine (3 sources)Migraine; Translations: [Migraine, unspecified, not intractable, without status migrainosus]Onset: 542993-49-5257IhmafgzFidkf connective tissue disease (4 sources)Pain in right hand; Translations: [PAIN IN RIGHT HAND]Onset: 30-97-3550DsgrlnizQoiew ear and sense organ disorders (3 sources)Hearing loss; Translations: [Unspecified hearing loss, unspecified ear]Onset: 381333-04-5695MryywdtLrggj upper respiratory disease (3 sources)Seasonal allergic rhinitis; Translations: [Other seasonal allergic rhinitis]Onset: 183677-36-1308BycccbcMgyqt upper respiratory infections (3 sources)Chronic pansinusitis; Translations: [Chronic pansinusitis]Onset: hronic Past or Other Problems Problem ClassificationProblemDateDocumented DateEpisodic/ChronicConditions associated with dizziness or vertigo (3 sources)Dizziness; Translations: [Dizziness and giddiness]Onset: 02-04-2024 76-39-5729DerdqwzjWmpifdvwtj and other anemia (1 source)Anemia, unspecified; Translations: [ANEMIA UNSPECIFIED]Onset: 33-18-1909AumdtipkWyeldsfg; including migraine (3 sources)Headache; Translations: [Headache]Onset: 825995-88-6086Qqnufyzq Other aftercare (1 source)Other belt loop maker (current) drug therapy; Translations: [OTH DRAMATIC CRITIC CURRENT DRUG THERAPY]Onset: 56-85-0643DdwcgmddAoahg non-traumatic joint disorders (1 source)Pain in unspecified joint; Translations: [PAIN IN UNSPECIFIED JOINT] Onset: 44-74-8744YpcrfelkXiwrt screening for suspected conditions (not mental disorders or infectious disease) (1 source)Encounter for screening for malignant neoplasm of prostate; Translations: [ENC SCREEN MALIG NEOPLASM PROSTATE]Onset: 95-43-2224SculvtxyCwuxh upper respiratory infections (3 sources)Acute sinusitis; Translations: [Acute sinusitis, unspecified]Onset: 900062-28-3436TdclgpqbIcrery media and related conditions (3 sources)Otitis media; Translations: [Otitis media, unspecified, unspecified ear]Onset: 465151-62-9645Yghjlzja Results Test NameValueInterpretationReference RangeFacilityUrine Cultureon 05-16-2025 Bacteria identified Cx Nom (U)15,000 colonies/ml mixed bacterial skin contaminants 2 Days PERFORMED BY: [place] [address] PATHOLOGIST MOTEL [employer]OD SERVICE SUPERVISOR JAQUAN HERNANDEZ M.D.NormalThe [facility] Physician GroupComment on above: Performed By: #### CUU #### [place] [address] [place] Head/Neck Soft Tissueon 53-94-3864EL Head/Neck Soft TissueExam Date/Time: 03/30/2024 15:02 EDT Reason for Exam: [...] no solid lesions identified. Ordering Provider: Jordan Tovar FINAL REPORT Dictated: 04/02/2024 10:00 am Shekhar Elmore MD Signed (Electronic Signature): 04/02/2024 10:00 am Signed by: Shekhar Elmore MD Transcribed by: RIGO Technologist: [facility] CenterEBV Antibody Profileon 09-83-2006ZSJ capsid IgG IA Qn (S)>600.0High0.0-17.9[facility] HospitalComment on above:Result Comment: Negative <18.0 Equivocal 18.0 - 21.9 Positive >21.9Performed By: #### [id number] #### [facility] [address], [place] [address]CZX capsid IgM IA Qn (S)<36.0Invalid Interpretation Code 0.0-35.9[facility] HospitalComment on above:Result Comment: Negative <36.0 Equivocal 36.0 - 43.9 Positive >43.9Performed By: #### [id number] #### [facility] [address], [place] [address]PCR nuclear IgG IA Qn (S)298.0 unit/mLHigh0.0-17.9[facility] HospitalComment on above:Result Comment: Negative <18.0 Equivocal 18.0 - 21.9 Positive >21.9Performed By: #### [id number] #### [facility] [address] [place] [address]Lfngnnb comment (Unsp spec) [Interp]CommentInvalid Interpretation CodeElyria Memorial HospitalComment on above:Result Comment: EBV Interpretation Chart Celis: Antibody Present [...] never develop antibodies to EBNA. Performed at: [address] [id number] PhD Jo Ann OlveraPerformed By: #### [id number] #### [facility] [address] [place] [address]SM MAXILLOFACIAL W/O CONTRASTon 03-31-2024 Exam Date/Time: 03/30/2024 14:30 EDT Reason for Exam: J32.4 Report IMPRESSION: NO RADIOGRAPHIC FINDINGS TO SUGGEST ACUTE OR CHRONIC SINUSITIS CLINICAL HISTORY: J32.4 facial pressure COMPARISON: NONE. FINDINGS: Within the rpvjl-tf-nnan the ventricles are of normal size configuration. [...] by: Manoj Brown Transcribed by: RIGO Technologist: [facility]ERRad[facility], Radiologist, MD - 03/31/2024 Exam Date/Time: 03/30/2024 14:30 EDT Reason for Exam: J32.4 Report IMPRESSION: NO RADIOGRAPHIC FINDINGS TO SUGGEST ACUTE OR CHRONIC SINUSITIS CLINICAL HISTORY: J32.4 facial pressure COMPARISON: NONE. FINDINGS: Within the ifrnt-ai-pbqq the ventricles are of normal size configuration. [...] (Electronic Signature): 03/31/2024 9:44 am Signed by: aMnoj Brown Transcribed by: RIGO Technologist: ANGIE Maldonado MAXILLOFACIAL W/O CONTRASTOrdered By: Radiologist Radiology on 35-07-9088JLHC Amadesa Work Phone: ct Maxillofacial w/o Contraston 32-07-3839IF Maxillofacial w/o ContrastExam Date/Time: 03/30/2024 14:30 EDT Reason for Exam: J32.4 Report IMPRESSION: NO RADIOGRAPHIC FINDINGS TO SUGGEST ACUTE OR CHRONIC SINUSITIS CLINICAL HISTORY: J32.4 facial pressure COMPARISON: NONE. FINDINGS: Within the qabmo-mj-prde the ventricles are of normal size configuration. [...] by: Manoj Brown Transcribed by: RIGO Technologist: FannyElyria Memorial HospitalCBC w/ Auto Diffon 21-33-7891Aaciimmfg/100 WBC (Bld)0.7 %Normal0.0-2.0[facility] HospitalComment on above:Performed By: #### [id number] #### [facility] [address] [place] [address]Esawkbjoa/Leukocytes Auto (Bld) [Pure # fraction]0.0 E9/LNormal 0.0-0.2[facility] CenterComment on above:Performed By: #### [id number] #### [facility] [address] [place] [address] 149[address]Tgdppaylhtf (Bld) [#/Vol]0.2 E9/LNormal0.0-0.5FChillicothe VA Medical CenterComment on above:Performed By: #### [id number] #### [facility] [address] [place] [address]38[address]Crbypnonuoo/100 WBC (Bld)3.9 %Normal0.0-8.0[facility] HospitalComment on above:Performed By: #### [id number] #### [facility] [address] [place] [address]Kbdpyaapznj distribution width (RBC) [Ratio]12.6 %Normal 10.9-14.2FChillicothe VA Medical CenterComment on above:Performed By: #### [id number] #### [facility] [address] [place] [address] 23496Ruytwvckte (Bld) [Volume fraction]41.3 %Ubdloa49.7-49.0[facility] HospitalComment on above:Performed By: #### [id number] #### [facility] [address] [place] [address]69[address]Kwwwbxlhqh (Bld) [Mass/Vol]14.6 g/qUSfrpob18.5-17.5FChillicothe VA Medical CenterComment on above:Performed By: #### [id number] #### [facility] [address] [place] [address]Lqbtgukdqyd (Bld) [#/Vol]1.4 E9/LNormal1.0-4.0[facility] HospitalComment on above:Performed By: #### [id number] #### [facility] [address] [place] [address] 07[address]Ljczywreluj/100 WBC (Bld)34.8 %Fjicas04.0-50.0[facility] HospitalComment on above:Performed By: #### [id number] #### [facility] [address] [place] [address]GKK (RBC) [Entitic mass]32.6 urEngucs47.0-34.0[facility] HospitalComment on above:Performed By: #### [id number] #### [facility] [address] [place] [address]PINM (RBC) [Mass/Vol]35.4 g/iNHikkwd85.4-36.0[facility] HospitalComment on above:Performed By: #### [id number] #### [facility] [address] [place] [address] 110[address]WQJ (RBC) [Entitic vol]92.1 jAUnvhkl64.0-100.0[facility] HospitalComment on above:Performed By: #### [id number] #### [facility] [address] [place] [address] 590[address]Ujprssqpt (Bld) [#/Vol]0.6 E9/LNormal0.2-1.0[facility] HospitalComment on above:Performed By: #### [id number] #### [facility] [address] [place] [address] 18[address]Kpkdywcdgks (Bld) [#/Vol]1.8 E9/LLow2.0-7.5FChillicothe VA Medical CenterComment on above:Performed By: #### [id number] #### [facility] [address] [place] [address] 118[address]Tslxelyldbc/100 WBC (Bld)44.8 %Cjdmgy10.0-75.0[facility] HospitalComment on above:Performed By: #### [id number] #### [facility] [address] [place] [address]Pnmqugnw290.0 E9/IYwqnsg800.0-500.0[facility] Comment on above:Performed By: #### [id number] #### [facility] [address] [place] [address] 38[address]Yujaklwo mean volume (Bld) [Entitic vol]6.3 fLLow6.4-10.8[facility] HospitalComment on above:Performed By: #### [id number] #### [facility] [address], [place] [address]LBW (Bld) [#/Vol]4.5 E12/LNormal4.3-5.9[facility] HospitalComment on above:Performed By: #### [id number] #### [facility] [address], [place] [address]ZKR corrected for nucl RBC Auto (Bld) [#/Vol]4.1 E9/LNormal 4.0-11.0[facility] HospitalComment on above:Performed By: #### [id number] #### [facility] [address], [place] [address]DKRZGZAYSLhdthgu By: SYSTEM SYSTEM on 86-73-0521Vrxqeyg [Mass/Vol]4.5 g/dLNormal3.3 - 5.0 gm/dLRemisol ChemAlbumin/Globulin [Mass ratio] 1.4 {ratio}Normal1.1 - 2.2Remisol ChemALP [Catalytic activity/Vol]44 [iU]/d Ikmdfn57 - 98 Int._Unit/LRemisol ChemALT No additional P-5'-P [Catalytic activity/Vol]38 [iU]/dNormal6 - 46 Int._Unit/LRemisol ChemAnion gap [Moles/Vol] 10 mmol/LNormal6 - 16 mEq/LRemisol ChemAST [Catalytic activity/Vol]32 [iU]/d Normal5 - 43 Int._Unit/LRemisol ChemBilirubin [Mass/Vol]0.6 mg/dLNormal0.0 - 1.1 mg/dLRemisol ChemCalcium [Mass/Vol]9.4 mg/dLNormal8.9 - 11.1 mg/dLRemisol Chem Chloride [Moles/Vol]101 mmol/BBlfzmt575 - 111 mmol/LRemisol ChemCO2 [Moles/Vol] 30 mmol/ONnamkf27 - 31 mmol/LRemisol ChemCreatinine [Mass/Vol]1.2 mg/dLNormal0.5 - 1.3 mg/dLRemisol WrwoxTRX95 mL/min/1.73 y8Klhuig>=59mL/min/1.73 e7Zngdzwn ChemGlobulin (S) [Mass/Vol]3.2 g/dLNormal1.4 - 4.0 gm/dLRemisol ChemGlucose [Mass/Vol]93 mg/jRJnbyue14 - 199 mg/dLRemisol ChemPotassium [Moles/Vol]4.3 mmol/LNormal3.5 - 5.3 mmol/LRemisol ChemProtein [Mass/Vol]7.7 g/dLNormal6.0 - 7.8 gm/dLRemisol ChemSodium [Moles/Vol]137 mmol/HGeuhnr670 - 145 mmol/LRemisol ChemUrea nitrogen [Mass/Vol]17 mg/dLNormal5 - 21 mg/dLRemisol ChemUrea nitrogen/Creatinine [Mass ratio]14 mg/ymMzahfd19 - 20Remisol ChemCMPon 83-70-0173Wzpqtsq [Mass/Vol]4.5 g/dLNormal3.3-5.0[facility] Comment on above:Performed By: #### [id number] #### [facility] [address], [place] [address]Uulfbge/Globulin (S) [Mass conc ratio]1.9Jmfwtb0.1-2.2[facility] CenterComment on above:Performed By: #### [id number] #### [facility] [address], [place] [address]REB [Catalytic activity/Vol]44 Int._Unit/ASsabov72-45CaixctElyria Memorial HospitalComment on above:Performed By: #### [id number] #### [facility] [address], [place] [address]FJY No additional P-5'-P [Catalytic activity/Vol]38 Int._Unit/L Normal6-46[facility] HospitalComment on above:Performed By: #### [id number] #### [facility] [address], [place] [address]Gueou gap [Moles/Vol]10 mmol/LNormal6-16[facility] HospitalComment on above:Performed By: #### [id number] #### [facility] [address], [place] [address]CRR [Catalytic activity/Vol]32 Int._Unit/LNormal5-43[facility] HospitalComment on above:Performed By: #### [id number] #### [facility] [address], [place] [address]Kxpkquket [Mass/Vol]0.6 mg/dLNormal0.0-1.1FChillicothe VA Medical CenterComment on above:Performed By: #### [id number] #### [facility] [address], [place] [address]Woknccv [Mass/Vol]9.4 mg/dLNormal8.9-11.1FChillicothe VA Medical CenterComment on above:Performed By: #### [id number] #### [facility] [address], [place] [address]Hgfanebv [Moles/Vol]101 mmol/CUoiwst683-173EaucvcElyria Memorial HospitalComment on above:Performed By: #### [id number] #### [facility] [address], [place] [address]VS1 [Moles/Vol]30 mmol/EUlqnxd40-11SwmifvElyria Memorial Hospital Comment on above:Performed By: #### [id number] #### [facility] [address], [place] [address]Vcrgzyosgf [Mass/Vol]1.2 mg/dLNormal0.5-1.3FChillicothe VA Medical CenterComment on above:Performed By: #### [id number] #### [facility] [address], [place] [address]Unanbqgh (S) [Mass/Vol]3.2 g/dLNormal1.4-4.0[facility] HospitalComment on above:Performed By: #### [id number] #### [facility] [address], [place] [address]Bqyexkj [Mass/Vol]93 mg/gYRdfuuu06-273QmebccElyria Memorial HospitalComment on above:Performed By: #### [id number] #### [facility] [address], [place] [address]Iscikamyj [Moles/Vol]4.3 mmol/LNormal3.5-5.3FChillicothe VA Medical CenterComment on above:Performed By: #### [id number] #### [facility] [address], [place] [address]Vyexlzi [Mass/Vol]7.7 g/dLNormal6.0-7.8[facility] HospitalComment on above:Performed By: #### [id number] #### [facility] [address], [place] [address]Lnraut [Moles/Vol]137 mmol/JEpqmwb286-652AzsgmuElyria Memorial HospitalComment on above:Performed By: #### [id number] #### [facility] [address], [place] [address]Bgdv nitrogen [Mass/Vol]17 mg/dLNormal5-21[facility] HospitalComment on above:Performed By: #### [id number] #### [facility] [address], [place] [address]Fmjj nitrogen/Creatinine [Mass ratio]14 No JlwafIrsaub24-61 [facility] HospitalComment on above:Performed By: #### [id number] #### [facility] [address], [place] [address]EY MAXILLOFACIAL W/O CONTRASTon 87-42-9264Wxcrbkszt Study observation (narrative)NOMS HealthcareConsent for Treatmenton 36-66-6089Zjnqryc for [id number]#1.00TIFBrecksville VA / Crille HospitalConsent for Treatment [id number]#1.00TIFBrecksville VA / Crille HospitalHEMATOLOGYOrdered By: SYSTEM SYSTEM on 67-95-4999Rrpexzegp/100 WBC (Bld) 0.7 %Normal0.0 - 2.0 %Remisol HemeBasophils/Leukocytes Auto (Bld) [Pure # fraction]0.0 E9/LNormal0.0 - 0.2 E9/LRemisol HemeEosinophils (Bld) [#/Vol]0.2 E9/LNormal0.0 - 0.5 E9/LRemisol HemeEosinophils/100 WBC (Bld)3.9 %Normal0.0 - 8.0 %Remisol HemeErythrocyte distribution width (RBC) [Ratio]12.6 %Bklhvr69.9 - 14.2 %Remisol HemeHematocrit (Bld) [Volume fraction]41.3 %Gprxsg81.7 - 49.0 % Remisol HemeHemoglobin (Bld) [Mass/Vol]14.6 g/fERysjrp26.5 - 17.5 gm/dLRemisol HemeLymphocytes (Bld) [#/Vol]1.4 E9/LNormal1.0 - 4.0 E9/LRemisol Heme Lymphocytes/100 WBC (Bld)34.8 %Aplnho30.0 - 50.0 %Remisol HemeMCH (RBC) [Entitic mass]32.6 riMgtsrj62.0 - 34.0 pgRemisol HemeMCHC (RBC) [Mass/Vol]35.4 g/dL Evaape36.4 - 36.0 gm/dLRemisol HemeMCV (RBC) [Entitic vol]92.1 xYGteols84.0 - 100.0 fLRemisol HemeMonocytes (Bld) [#/Vol]0.6 E9/LNormal0.2 - 1.0 E9/LRemisol HemeMonocytes/100 WBC (Bld)15.8 %High4.0 - 14.0 %Remisol HemeNeutrophils (Bld) [#/Vol]1.8 E9/LLow2.0 - 7.5 E9/LRemisol HemeNeutrophils/100 WBC (Bld)44.8 % Topkid68.0 - 75.0 %Remisol JlooIfzheikd746.0 E9/ZBkwtrk525.0 - 500.0 E9/LRemisol HemePlatelet mean volume (Bld) [Entitic vol]6.3 fLLow6.4 - 10.8 fLRemisol Heme RBC (Bld) [#/Vol]4.5 E12/LNormal4.3 - 5.9 E12/LRemisol HemeWBC corrected for nucl RBC Auto (Bld) [#/Vol]4.1 E9/LNormal4.0 - 11.0 E9/LRemisol HemeMono Screen on 90-37-5376Wdlrjjvfnbd Ab LA Ql (S)NegativeNormalNegativeElyria Memorial HospitalComment on above:Performed By: #### [id number] #### [facility] [address], [place] [address]Oqghzohwt Orderon 36-65-8819Gfruhlire Order [id number]#1.00TIFBrecksville VA / Crille HospitalPhysician [id number]#1.00TIFFNormal [facility] Memorial HospitalEROLOGYOrdered By: Guerita Gamino on 03-30-2024 Heterophile Ab LA Ql (S)Negative (03/30/24 3:07 PM)NormalNegativePRAGUE COMMUNITY HOSPITAL – [place] Man SeroeGFRon 69-09-8574dERH41 mL/min/1.73 c9Klisvk>=59[facility] HospitalComment on above:Order Comment: Order added by Discern Expert.Performed By: #### [id number] #### [facility] [address], [place] [address]Nwdgtssmv Orderon 76-44-8259Nzatqnbju Order [id number]#1.00TIFBrecksville VA / Crille HospitalINSULINon 56-78-7594Maypyqm58.6 uIU/mLNormal2.6-24.9The [facility] Comment on above:Performed By: #### INSULIN #### [facility] [address] [address] [address] Gabriel Higgins AUTO DIFFon 96-63-6029GNVP #0.1 103/ulNormal0.0-0.1The [facility] NorthComment on above:Performed By: #### CBC #### [facility] [address] [address] [address] Gabriel GarciaBasophils/100 WBC (Bld)1.0 %Normal0.2-2.0[facility] Comment on above:Performed By: #### CBC #### [facility] [address] [place] [address] Dr. Gabriel Cade #0.3 103/ulNormal0.0-0.7The [facility] NorthComment on above: Performed By: #### CBC #### [facility] [address] [place] [address] Dr. Gabriel Albertoosinophils/100 WBC (Bld)5.1 %Normal0.9-7.0The [facility] Comment on above:Performed By: #### CBC #### [facility] [address] [place] [address] Dr. Gabriel Albertorythrocyte distribution width (RBC) [Ratio]11.9 %Rwbdlu58.0-15.0 [facility] NorthComment on above:Performed By: #### CBC #### [facility] [address] [place] [address] Dr. Gabriel GarciaHematocrit (Bld) [Volume fraction]46.9 %Wvpcpy89.0-54.0The [facility] NorthComment on above:Performed By: #### CBC #### [facility] [address] [place] [address] Dr. Gabriel GarciaHemoglobin (Bld) [Mass/Vol]16.1 g/cKAsjfqm43.0-18.0The [facility] NorthComment on above:Performed By: #### CBC #### [facility] [address] [place] [address] Dr. Gabriel Bazan #0.01 10e3/ulNormal0.00-0.03The [facility] on above:Performed By: #### CBC #### [facility] [address] [address] [address] Gabriel Bazan %0.2 %Normal0.0-0.5The [facility] on above: Performed By: #### CBC #### [facility] [address] [address] [address] Gabriel Torres #1.9 103/ulNormal1.2-3.8The Premier [facility] on above:Performed By: #### CBC #### [facility] [address] [place] [address] Dr. Gabriel Carrionhocytes/100 WBC (Bld)37.4 %Iigehe51.5-60.0The [facility] on above:Performed By: #### CBC #### [facility] [address] [place] [address] Dr. Gabriel Friend DIFF REQNONormalThe [facility] NorthComment on above: Performed By: #### CBC #### [facility] [address] [place] [address] Dr. Gabriel Lee (RBC) [Entitic mass]31.8 wjOovqyn33.9-34.0The [facility] on above:Performed By: #### CBC #### [facility] [address] [place] [address] Dr. Gabriel Alvarado (RBC) [Mass/Vol]34.3 g/mMBiaxhu26.9-35.2The [facility] on above:Performed By: #### CBC #### [facility] [address] [place] [address] Dr. Gabriel Alvarado (RBC) [Entitic vol]92.5 gEVuqier09.0-94.0[facility] on above:Performed By: #### CBC #### [facility] [address] [place] [address] Dr. Gabriel Vázquez #0.5 103/ulNormal0.3-0.8The [facility] NorthComment on above:Performed By: #### CBC #### [facility] [address] [place] [address] Dr. Gabriel Eagleocytes/100 WBC (Bld)9.0 %Normal1.7-12.0The [facility] Comment on above:Performed By: #### CBC #### [facility] [address] [place] [address] Dr. Gabriel Alba #2.4 103/ulNormal1.4-6.5The [facility] NorthComment on above:Performed By: #### CBC #### [facility] [address] [place] [address] Dr. Gabriel Fallonutrophils/100 WBC (Bld)47.3 %Emtylk17.0-75.0The [facility] NorthComment on above:Performed By: #### CBC #### [facility] [address] [place] [address] Dr. Gabriel Purvis mean volume (Bld) [Entitic vol]8.8 fLCritically low 9.5-13.5The [facility] NorthComment on above:Performed By: #### CBC #### [facility] [address] [place] [address] Dr. Gabriel GarciaPLT226 103/krXdudyp017-510Ufc [facility] NorthComment on above: Performed By: #### CBC #### [facility] [address] [place] [address] Dr. Gabriel GarciaRBC5.07 106/ulNormal4.70-6.10The [facility] NorthComment on above:Performed By: #### CBC #### [facility] [address] [place] [address] Dr. Gabriel GarciaWBC5.1 103/ulNormal4.0-11.0The [facility] NorthComment on above: Performed By: #### CBC #### [facility] [address] [place] [address] Dr. Gabriel LanierRECT LDLon 87-09-3017Ofjqsgdrkix in LDL [Mass/Vol]144 mg/dL NormalL[facility] on above:Performed By: #### CMP, DLDL, URIC, LIPID #### [facility] [address] [place] [address] Dr. Gabriel GarciaDLDL NORMALSEE [facility] on above: Result Comment: <100 mg/dl OPTIMAL 100 - 129 mg/dl NEAR OR ABOVE OPTIMAL 130 - 159 mg/dl BORDERLINE HIGH 160 - 189 mg/dl HIGH >190 mg/dl VERY HIGHPerformed By: #### CMP, DLDL, URIC, LIPID #### [facility] [address] [place] [address] Dr. Gabriel GarciaGLYCOHEMOGLOBIN A1Con 56-04-2988FER RECOMMENDATIONSEE [facility] CenterComselect [facility] on above:Result Comment: ADA RECOMMENDED LIMIT 4.0 - 6.0 ADA THERAPEUTIC TARGET < 7.0 ACTION SUGGESTED > 7.0Performed By: #### A1C #### [facility] [address] [place] [address] Dr. Gabriel GarciaGlucose [Mass/Vol]100 mg/dLLancaster Municipal Hospital on above:Performed By: #### A1C #### [facility] [address] [place] [address] Dr. Gabriel GarciaHbA1c (Bld) [Mass fraction]5.1 %Normal4.5-6.2[facility] on above:Performed By: #### A1C #### [facility] [address] [place] [address] Dr. Gabriel GarciaLIPID PROFILEon 45-96-9850AFMN-HDL RATIO NORMSEE [facility] on above:Result Comment: 3.3 - 4.4 LOW RISK 4.4 - 7.1 AVERAGE RISK 7.1 - 11.0 MODERATE RISK >11.0 HIGH RISKPerformed By: #### CMP, DLDL, URIC, LIPID #### [facility] [address] [place] [address] Dr. Gabriel GarciaCholesterol [Mass/Vol]259 mg/dLCritically high<=200The [facility] on above:Performed By: #### CMP, DLDL, URIC, LIPID #### [facility] [address] [place] [address] Dr. Gabriel GarciaCholesterol in HDL [Mass/Vol]27 mg/dLCritically ijo70-27Ruf [facility] on above:Performed By: #### CMP, DLDL, URIC, LIPID #### [facility] [address] [place] [address] Dr. Gabriel Aiken.total/Cholesterol in HDL [Mass ratio]9.6 {ratio} NormalThe [facility] on above:Performed By: #### CMP, DLDL, URIC, LIPID #### [facility] [address] [place] [address] Dr. Gabriel Burns NORMAL> or = 60 mg/dl - LOW CARDIOVASCULAR RISK <40 mg/dl - HIGH CARDIOVASCULAR RISKLancaster Municipal Hospital on above:Performed By: #### CMP, DLDL, URIC, LIPID #### [facility] [address] [place] [address] Dr. Gabriel GarciaLDL CALC NORMALSEE BELOWCleveland Clinic Mentor HospitalComselect specialty [facility] on above:Result Comment: <100 mg/dl OPTIMAL 100 - 129 mg/dl NEAR OR ABOVE OPTIMAL 130 - 159 mg/dl BORDERLINE HIGH 160 - 189 mg/dl HIGH >190 mg/dl VERY HIGH Performed By: #### CMP, DLDL, URIC, LIPID #### [facility] [address] [place] [address] Dr. Gabriel GarciaTriglyceride [Mass/Vol]469 mg/dLCritically high<=150The [facility] on above:Performed By: #### CMP, DLDL, URIC, LIPID #### [facility] [address] [place] [address] Dr. Gabriel GarciaPROAnabela 14(COMP METB)on 48-97-4870Tkwszbu [Mass/Vol]4.1 g/dLNormal 3.4-5.0The [facility] on above:Performed By: #### CMP, DLDL, URIC, LIPID #### [facility] [address] [address] [address] Gabriel GarciaAlbumin/Globulin [Mass ratio]1.0 {ratio}NormalThe [facility] NorthComment on above:Performed By: #### CMP, DLDL, URIC, LIPID #### [facility] [address] [address] [address] Gabriel Garcia [Catalytic activity/Vol]74 U/ZFyewyj48-215Wpv [facility] NorthComment on above:Performed By: #### CMP, DLDL, URIC, LIPID #### [facility] [address] [address] [address] Gabriel Kim [Catalytic activity/Vol]37 U/OYketlz22-95Aze [facility] NorthComment on above:Performed By: #### CMP, DLDL, URIC, LIPID #### [facility] [address] [place] [address] Dr. Gabriel Villelaon gap [Moles/Vol]12.8 mmol/LNormalThe [facility] Comment on above:Performed By: #### CMP, DLDL, URIC, LIPID #### [facility] [address] [address] [address] Gabriel Rodriguez [Catalytic activity/Vol]36 U/FSsflow97-46Tsq [facility] NorthComment on above:Performed By: #### CMP, DLDL, URIC, LIPID #### [facility] [address] [address] [address] Gabriel GarciaBilirubin [Mass/Vol]0.4 mg/dLNormal0.2-1.0The [facility] Comment on above:Performed By: #### CMP, DLDL, URIC, LIPID #### [facility] [address] [place] [address] Dr. Gabriel GarciaCalcium [Mass/Vol]9.0 mg/dLNormal8.5-10.1[facility] Comment on above:Performed By: #### CMP, DLDL, URIC, LIPID #### [facility] [address] [address] [address] Gabriel GarciaChloride [Moles/Vol]103 mmol/BRwkxzf76-190Rov [facility] Comment on above:Performed By: #### CMP, DLDL, URIC, LIPID #### [facility] [address] [address] [address] Gabriel GarciaCO2 [Moles/Vol]27.6 mmol/HKhulsa67.0-32.0The [facility] Comment on above:Performed By: #### CMP, DLDL, URIC, LIPID #### [facility] [address] [address] [address] Gabriel GarciaCreatinine [Mass/Vol]1.01 mg/dLNormal0.70-1.30The [facility] NorthComment on above:Performed By: #### CMP, DLDL, URIC, LIPID #### [facility] [address] [place] [address] Dr. Gabriel AlbertoGFR-AF ST LUCIAN>60Normal>=60The [facility] NorthComment on above:Performed By: #### CMP, DLDL, URIC, LIPID #### [facility] [address] [place] [address] Dr. Gabriel AlebrtoGFR-NON AF ST LUCIAN>60Normal>=60The [facility] NorthComment on above:Performed By: #### CMP, DLDL, URIC, LIPID #### [facility] [address] [place] [address] Dr. Gabriel GarciaGlobulin (S) [Mass/Vol]4.0 g/dLNormalThe [facility] NorthComment on above:Performed By: #### CMP, DLDL, URIC, LIPID #### [facility] [address] [place] [address] Dr. Gabriel GarciaGlucose [Mass/Vol]94 mg/kDYeggeh91-681Qxq [facility] Comment on above:Performed By: #### CMP, DLDL, URIC, LIPID #### [facility] [address] [place] [address] Dr. Gabriel GarciaPotassium [Moles/Vol]4.4 mmol/LNormal3.5-5.1The [facility] Comment on above:Performed By: #### CMP, DLDL, URIC, LIPID #### [facility] [address] [address] [address] Gabriel GarciaProtein [Mass/Vol]8.1 g/dLNormal6.4-8.2The [facility] Comment on above:Performed By: #### CMP, DLDL, URIC, LIPID #### [facility] [address] [address] [address] Gabriel GarciaSodium [Moles/Vol]139 mmol/UYcskbi804-224Lnz [facility] Comment on above:Performed By: #### CMP, DLDL, URIC, LIPID #### [facility] [address] [address] [address] Gabriel GarciaUrea nitrogen [Mass/Vol]12.0 mg/dLNormal7.0-18.0The [facility] NorthComment on above:Performed By: #### CMP, DLDL, URIC, LIPID #### [facility] [address] [address] [address] Gabriel Pringle nitrogen/Creatinine [Mass ratio]11.9 mg/mgNormalThe [facility] NorthComment on above:Performed By: #### CMP, DLDL, URIC, LIPID #### [facility] [address] [address] [address] Gabriel GarciaURIC ACID SERUMon 37-66-0478Osowg [Mass/Vol]4.8 mg/dLNormal 3.5-7.2The [facility] NorthComment on above:Performed By: #### CMP, DLDL, URIC, LIPID #### [facility] [address] [address] [address] Gabriel Garcia Encounters Encounter DateEncounter TypeCare ProviderFacilityStart: 05-16-2025 End: 33-71-8916xdnsufmqkbHiohdpg M [facility]oyOhio [facility] Work Phone: Start: 05-16-2025 End: 88-09-1255Lwrhyxxa Nathaniel Vogel MD-LAB [facility] Start: 12-19-2024 End: 36-58-5452jzblseextaTBYYCB GILLMORNot AvailableStart: 08-09-2024 End: 23-55-9725Zjbdacrdh encounterAngela Gillmor PROFILE TRIMMER Work Phone: noms NE NEUROComment on above:Med RefillStart: 05-24-2024 End: 32-22-8629Cnqtudcjp encounterAngela Gillmor PROFILE TRIMMER Work Phone: noms [facility] ROUTEStart: 04-11-2024 End: 99-00-5038dlzyahobzoWFXMVF GILLMORNot AvailableStart: 04-06-2024 End: 25-99-1779rpbxwyyruySLHLNX H TIMMISNot AvailableStart: 03-30-2024 End: 47-28-7701Jypzoodnv Result EncounterHilary Primo Vega MD Work Phone: noms External Department UnsolicitedStart: 03-30-2024 End: 97-72-8300Kravjtcsy Result EncounterHilary Primo Vega MD Work Phone: noms External Department UnsolicitedStart: 03-30-2024 End: 40-30-6525tifdohpihbHbhsbqy HoyFacility:FTMCStart: 03-30-2024 End: 95-90-5223Gtnmmhr encounter procedureHilary H Timmis [facility] Start: 03-02-2024 End: 42-21-2472wdiqbdagepKUKUSF H TIMMISNot AvailableStart: 12-17-2022 End: 56-03-6727tmpctuiilgPW JORDAN HOY .Facility:H5Thrzy: 22-16-7000Mirlgobmy for general adult medical examination without abnormal findingsDR JORDAN HOY . [facility]: 02-24-2022 End: 52-50-9456fnpyopbgzeVG JORDAN HOY .Facility:S2Jipgc: 02-24-2022 End: 47-98-4562Imvjxsuwq for general adult medical examination without abnormal findingsDR JORDAN HOY .Facility:V7Gwxia: 67-27-0596ejwsaymiwkRW JORDAN HOY . Facility: Procedures DateProcedureProcedure DetailPerforming ClinicianStart: 85-99-2095YJ MAXILLOFACIAL W/O Thuy Vega MD Work Phone: Start: 51-56-5497ITF screeningDR JORDAN TOVAR .Comment on above:Performed By: #### PSASC #### [facility] [address] [address] [address] Gabriel Garcia Plan of Treatment DateCare ActivityDetailAuthorStart: 83-06-1219Fambxcpk identified in Urine by CultureUrine [facility] Easttart: 81-69-6357Qkgui [facility] Hospitaltart: 10-17-2024 End: 19-55-8217Fwfbtiq encounter tztjyygrb90/13/2025 9:40 AM EST [facility] [address] [facility] [address] [place] [phone] Mariana Diaz NP [address] [facility] [address] [place] [address] [facility] ROUTEStart: 27-50-4596Kobhdgdio vaccinationInfluenza Vaccine (#1)NOM HealthcareStart: 78-17-9284Gznyzutlp for malignant neoplasm of colonNONC Healthcare Immunizations Immunization DateImmunizationNotesCare KwyecuzbJiyisiyw71-29-9609lahpdprly virus vaccine, unspecified formulationMariana Diaz NP Work Phone: [facility] Payers DatePayer CategoryPayerPolicy [id number]-pay2024MedicareAETNA MEDICARE ADVANTAGE AETNA MEDICARE REPLACEMENT [id number] 2023-Present [address] [place] [id number] [id number] 2.16.840.1.568401.3.57[id number] 2.16.840.1.264757.3.57[id number] 2.16.840.1.925197.3.57[id number] 2.16.840.1.117130.3.57[id number] 2.16.840.1.633819.3.57[id number] 2.16.840.1.875551.3.57[id number] 2.16.840.1.931779.3.57[id number] 2.16.840.1.843359.3.57[id number] 2.16.840.1.340599.3.57[id number] 2.16.840.1.300760.3.579.2.1259 [id number] 1960Medicare [id number] Social History DateTypeDetailFacilityTobacco smoking statusMadison Healthtart: 04-06-2024 End: 77-00-3440Llw Assigned At BirthMalFulton County Health Centertart: 50-80-4337Ptnmmba smoking status NHISNever smoked tobaccoNOMS HealthcareStart: 60-10-7177Cdlacee use and exposureSmokeless tobacco non-userNOMS Healthcare Start: 03-02-2024 End: 49-78-9318Mbhlxthpb beverage intakeLifetime non-drinker (finding)NOMS HealthcareStart: 04-06-2024 End: 71-94-0203Ncxfxiv of Social functionHarry S. Truman Memorial Veterans' HospitalStart: 03-69-0879Qwx assigned at critical access hospitalNot on [facility] HospitalTobacc smoking status NHISUnknown if ever smokedSelect Medical [facility] Work Phone: SexMale (finding)[facility] Start: 90-22-3544Ads Assigned At [facility] Start: 50-80-3290QrpViuhAAEF Healthcare Clinical Notes 12-17-2022 to 08-09-2024 Note Date & YbvpIxahWxapfyyr69-12-4739 Telephone encounter Note* Telephone Encounter - Orquidea Lobo - 08/09/2024 8:37 AM EST Patient shruthifaridge called and Luis Fernando needs a refill of - Gabapentin 300 mg Oxcarbazepine 300 mg Pharmacy is [facility] in [place], [place]. [facility]' HospitalYiqsbwaacn07-08-9803 Miscellaneous Notes* Telephone Encounter - Orquidea Lobo - 08/09/2024 8:37 AM EST Patient shruthifaridge called and Luis Fernando needs a refill of - Gabapentin 300 mg Oxcarbazepine 300 mg Pharmacy is [facility] in [place], [place]. documented in this encounterHarry S. Truman Memorial Veterans' HospitalOngvfbyqgo03-21-2380 Telephone encounter Note* Telephone Encounter - Lelo Hirsch NP - 05/24/2024 2:55 PM EDT Done [facility] HospitalKugumooqrk58-02-5254 Miscellaneous Notes* Telephone Encounter - Lelo Hirsch NP - 05/24/2024 2:55 PM EDT Done * Telephone Encounter - Nathalie Longoria - 05/24/2024 1:24 PM EDT MOTHER CALLED IN STATING THAT THE PATIENT NEEDED A REFILL OF GABAPENTIN SENT TO [facility] IN [place] documented in this encounterHarry S. Truman Memorial Veterans' HospitalMgpggsrmyw51-36-8673 Telephone encounter Note* Telephone Encounter - Nathalie Longoria - 05/24/2024 1:24 PM EDT MOTHER CALLED IN STATING THAT THE PATIENT NEEDED A REFILL OF GABAPENTIN SENT TO [facility] IN [place] [facility] HospitalEwgoylpftj86-73-4842 Evaluation + Plan note Diagnostic Tests Pending * EBV Antibody Profile 03/30/24 [facility]03-15-2023 NotePROCEDURE: XR FOOT RT MIN 3 VIEWS HISTORY: Pain in right foot ; posterior lateral foot pain and bruising COMPARISON: None. FINDINGS: BONES:No fracture, acute abnormality, or significant arthropathy. SOFT TISSUES:No visible soft tissue swelling. EFFUSION:None visible. OTHER: Negative. IMPRESSION: 1. No acute or suspicious bone abnormality. 2. No appreciable soft tissue abnormality to account for patient's symptoms. Electronically authenticated by: DANGELO WILLIAM Date: 2022-12-17 16:35[facility]Evaluation + Plan note No data available for this section [facility]* Diagnosis Nonintractable epilepsy without status epilepticus, unspecified epilepsy type (CMS/HCC) Seizure disorder (CMS/HCC) Unspecified epilepsy without mention of intractable epilepsy documented in this encounter [facility] HealthcareEvaluation note* Diagnosis Nonintractable epilepsy without status epilepticus, unspecified epilepsy type (CMS/HCC) documented in this encounter [facility] HealthcareEvaluation noteNo assessment information availableOhio State Harding Hospital Ctr Work Phone: Hospital Discharge instructions No data available for this section [facility] SystemProgress note No data available for this section [facility] SystemReason for referral (narrative)No reason for referral information availableOhio State Harding Hospital Ctr Work Phone: Summary Purpose Family History No Family History [...] section and content) DATE CREATED AUTHOR 01/02/2023 [facility] DATE CREATED AUTHOR AUTHOR'S ORGANIZ ATION 04/01/2024 [facility] DATE CREATED AUTHOR AUTHOR'S ORGANIZ ATION 04/08/2024 [facility] DATE CREATED AUTHOR AUTHOR'S ORGANIZ ATION 12/21/2024 [facility] DATE CREATED AUTHOR AUTHOR'S ORGANIZ ATION 05/18/2025 [facility] Patient Care team informatio n (unrecognized section and content) Team MemberRelationshipSpecialtyStart DateEnd Date Jordan Tovar MD [address] [place] [address] [facility] - [facility]02/03/24Team MemberRelationshipSpecialtyStart DateEnd Date Jordan Tovar MD [address] [place] [address] PCP - [facility]Good [facility] Medicine02/03/24 Team Status: Inactive Member Role Status Dates Jordan Tovar MD Attending Provider Active Sta rt: May 16, 2025 End: May 16, 2025Team MemberRelationshipSpecialtyStart DateEnd Date Jordan Tovar MD PCP - GeneralFamily Medicine02/03/24 Jennifer Miller DO [address] [place] [address] Referring PhysicianNeurolog10/18/24 Mariana Diaz NP [address] [place] [address] Nurse PractitionerNeurolog10/18/24 Reason for Visit (unrecogniz ed section and content) ReasonOnset DateCommentsMed Qtisnh9208/09/2024 Goals (unrecognized section and content) Goals may be documented in a n alternate section FOR RECORDS PERTAINING TO PATIENTS WHO ARE [...] BE BASED ON THE PRIMARY CLINICAL RECORDS. [employer] [facility]. provides no warranty or guarantee of the accuracy or completeness of information in this document.
== END 2025-08-30 09:11 | disposition home or self-care (01) ==
LOC: CT 09:10
PROVIDERS: PCP Family Medicine; Visit Provider Family Medicine
DX: J32.9 Chronic sinusitis, unspecified (principal)
CPT/HCPCS: 70487; Q9967